=== PATIENT | female | born 1970 | race Caucasian/White ===

== ENCOUNTER 2020-03-07 13:57 | Outpatient (CLI) | payer OTHER, SELFPAY ==
--- NOTE | 2020-03-07 14:02 | CT_ITS ---
WS: [id number] CT CHEST WITH INTRAVENOUS CONTRAST HISTORY: MULTIPLE NODULES OF LUNG TECHNIQUE: Contiguous 5 mm axial imaging performed on the thorax. Coronal and sagittal reformats are submitted. All CT scans at [facility] use at least one of these dose optimization techniq ues: automated exposure control; mA and/or kV adjustment per patient size (includes targeted exams wh ere dose is matched to clinical indication); or iterative reconstruction. CONTRAST: Omnipaque 300; 95 mL IV. DLP: 925.89 mGy.cm COMPARISON: 02/27/2019, 07/08/2017 Lungs and central airway: Lungs are well-aerated. 9 mm noncalcified nodule is unchanged over several years at the RIGHT lung base. There are additional micronodules and nodules measuring up to 5 mm thro ughout both lungs. No new or enlarging nodule since at least 07/08/2017. No pneumonia. Pleura: Normal. No pleural effusion. Heart and pericardium: Normal size heart. No pericardial effusion. Scattered calcifications in the na tive coronary arteries. Mediastinum and lien: No mediastinum or hilar adenopathy. Vessels: Normal size aortic and pulmonary artery. No coronary artery calcifications. Chest wall and lower neck: No soft tissue masses. Upper abdomen: Negative. Osseous structures: Mild thoracic spondylosis. CT/CT chest w con* [id number] IMPRESSION: 1. Long-term stability of subcentimeter bilateral pulmonary nodules. No change since 07/08/2017. No additional follow-up necessary. 2. Mild coronary artery atherosclerosis.
[2020-03-07] MEDS: iohexol 300 mg/mL 100 mL Btl IV (14:40)
== END 2020-03-07 13:58 | disposition home or self-care (01) ==
PROVIDERS: PCP Internal Medicine; Visit Provider Internal Medicine
DX: R91.8 Other nonspecific abnormal finding of lung field (principal); I25.10 Atherosclerotic heart disease of native coronary artery without angina pectoris
CPT/HCPCS: 71260

== ENCOUNTER 2020-03-18 14:56 | Outpatient (CLI) | payer OTHER, SELFPAY ==
--- NOTE | 2020-03-18 15:03 | MM_ITS ---
WS: [id number] BILATERAL DIGITAL SCREENING MAMMOGRAPHY WITH CAD CLINICAL INFORMATION: SCREENING HISTORY: Screening mammogram. No current complaints. COMPARISON: October 02, 2018 TECHNIQUE: Bilateral CC and MLO views. FINDINGS: Scattered fibroglandular densities bilaterally. No suspicious focal mass, asymmetry, calcifications, or architectural distortion. No evidence of malignancy. Lucent centered and secretory calcifications. MM/[id number] IMPRESSION: BI-RADS: 2-Benign FOLLOW UP: 1 Year Follow-up Recommend return to annual screening mammography.
== END 2020-03-18 14:57 | disposition home or self-care (01) ==
PROVIDERS: PCP Internal Medicine; Visit Provider Internal Medicine
DX: Z12.31 Encounter for screening mammogram for malignant neoplasm of breast (principal)
CPT/HCPCS: 77067

== ENCOUNTER 2021-05-17 09:20 | Outpatient (CLI) | payer OTHER, SELFPAY ==
--- NOTE | 2021-05-17 09:25 | MM_ITS ---
WS: [id number] BILATERAL 3D TOMOSYNTHESIS DIGITAL SCREENING MAMMOGRAPHY WITH CAD CLINICAL INFORMATION: SCREENING HISTORY: Screening mammogram. No current complaints. COMPARISON: March 18, 2020 TECHNIQUE: Bilateral CC and MLO views. FINDINGS: Scattered fibroglandular densities bilaterally. Punctate and lucent centered calcifications. Secretor y calcifications. Stable asymmetric density upper outer RIGHT breast. No suspicious focal mass, asymm etry, calcifications, or architectural distortion. No evidence of malignancy. MM/[place] [id number] IMPRESSION: BI-RADS: 2-Benign FOLLOW UP: 1 Year Follow-up Recommend return to annual screening mammography.
== END 2021-05-17 09:21 | disposition home or self-care (01) ==
LOC: RADSHAW 09:24
PROVIDERS: PCP Family Medicine; Visit Provider Family Medicine
DX: Z12.31 Encounter for screening mammogram for malignant neoplasm of breast (principal)
CPT/HCPCS: 77063; 77067

== ENCOUNTER 2022-10-05 11:07 | Outpatient (CLI) | payer OTHER, SELFPAY ==
--- NOTE | 2022-10-05 11:15 | MM_ITS ---
WS: [id number] Bilateral screening 3D tomosynthesis digital mammogram, 10/05/2022 Clinical Data: SCREENING Comparison: 10/17/2021, 03/18/2020, 10/02/2018, 08/09/2017, 06/01/2016, 10/15/2005. Findings: The breast parenchymal pattern shows fibroglandular tissue. No spiculated masses or clustered calcifi cations are seen. There are no secondary signs of carcinoma. Scattered ductal calcifications are pres ent in both breasts. There are lymph nodes in both axilla. MM/[place] [id number] Impression: 1. Negative bilateral mammogram unchanged. 2. Recommend annual screening mammograms. BIRADS: 1-Negative FOLLOW UP: 1 Year Follow-up The CAD return checker was used.
[2022-10-05 12:07] LABS: Basophils # 0.1 10^3/uL (0.0-0.1); Eosinophils # 0.4 10^3/uL (0.0-0.8); Eosinophils % 5.9 %; Hematocrit 32.6 % (37.0-47.0); Hemoglobin 10.9 g/dL (11.5-15.3); Lymphocytes # 2.1 10^3/uL (0.8-4.8); Lymphocytes % 29.2 %; Mean Corpuscular HGB Conc 33.4 g/dL (30.0-36.0); Mean Corpuscular Hemoglobin 30.7 pg (28.0-34.0); Mean Corpuscular Volume 91.8 fl (81-99); Mean Platelet Volume 9.3 fL (7.4-10.4); Monocytes # 0.5 10^3/uL (0.2-0.9); Monocytes % 7.2 %; Neutrophils # 3.97 10^3/uL (1.8-7.7); Neutrophils % 56.3 %; Nucleated Red Blood Cells % 0 %; Platelet Count 324 10^3/cmm (130-400); Red Blood Count 3.55 10^6/uL (4.1-5.3); Red Cell Distribution Width 13.2 % (12.1-15.1); White Blood Count 7.1 10^3/uL (4.0-10.0)
[2022-10-05 12:34] LABS: Alanine Aminotransferase 18 U/L (0-33); Albumin Level 4.3 g/dL (3.5-5.2); Alkaline Phosphatase 81 U/L (35-105); Aspartate Amino Transferase 14 U/L (0-32); C Reactive Protein 6.8 mg/L (0.0-4.9); Globulin 2.9 g/dL (1.3-4.6); Glomerular Filtration Rate 74.7 mL/min (90-130); Total Bilirubin 0.3 mg/dL (0.15-1.2); Total Protein 7.2 g/dL (6.6-8.7)
== END 2022-10-05 11:08 | disposition home or self-care (01) ==
LOC: RAD 11:11 → MOBLMAM 11:15
PROVIDERS: Internal Medicine Rheumatology; PCP Family Medicine; Visit Provider Family Medicine
DX: Z12.31 Encounter for screening mammogram for malignant neoplasm of breast (principal); R76.8 Other specified abnormal immunological findings in serum; Z79.899 Other long term (current) drug therapy
CPT/HCPCS: 77063; 77067; 80076; 82565; 85025; 86140

== ENCOUNTER → 2022-10-17 14:54 | Outpatient (BNVA) | payer OTHER, SELFPAY | PROVIDERS: PCP Family Medicine; Visit Provider Internal Medicine Rheumatology | DX: R76.8 Other specified abnormal immunological findings in serum (principal); M25.50 Pain in unspecified joint; Z79.899 Other long term (current) drug therapy; Z71.85 Encounter for immunization safety counseling; L40.0 Psoriasis vulgaris | CPT/HCPCS: 99214 ==

== ENCOUNTER → 2022-11-26 08:19 | Outpatient (BNVA) | payer OTHER, SELFPAY | PROVIDERS: PCP Family Medicine; Visit Provider Internal Medicine | DX: E03.9 Hypothyroidism, unspecified; E11.40 Type 2 diabetes mellitus with diabetic neuropathy, unspecified; Z79.890 Hormone replacement therapy; Z79.84 Long term (current) use of oral hypoglycemic drugs | CPT/HCPCS: 99204 ==

== ENCOUNTER 2022-12-10 06:21 | Outpatient (CLI) | payer OTHER, SELFPAY ==
[2022-12-10 07:08] LABS: Estmated Average Glucose 252; Hemoglobin A1C 10.4 % (4.0-6.0)
[2022-12-10 07:17] LABS: Creatinine Urine, Random 124 mg/dL (28-217); Microalbum Creatinine Ratio Ur 40 mg/dL (0-20); Microalbumin Random Urine 5 ug/dL (0-20)
[2022-12-10 07:24] LABS: Alanine Aminotransferase 13 U/L (0-33); Albumin Level 4.4 g/dL (3.5-5.2); Alkaline Phosphatase 90 U/L (35-105); Anion Gap 14.4 (5-19); Aspartate Amino Transferase 14 U/L (0-32); Blood Urea Nitrogen 16 mg/dL (6-20); Calcium 9.6 mg/dL (8.5-10.5); Carbon Dioxide 27 mmol/L (22-29); Chloride 96 mmol/L (98-107); Chol HDL Ratio 3.66 mg/dL (0.0-4.40); Cholesterol 139 mg/dL (0-200); Free T4 Free Thyroxine 1.34 ng/dL (0.82-1.77); Globulin 3.5 g/dL (1.3-4.6); Glomerular Filtration Rate 51.8 mL/min (90-130); Glucose 254 mg/dL (65-115); HDL Cholesterol 38 mg/dL (60-100); LDL Cholesterol Calculated 50 mg/dL (50-129); LDL HDL Ratio 1.32 RATIO (0.00-3.22); Osmolality Calculated 286 mOsm/kg (285-295); Potassium 4.4 mmol/L (3.5-5.1); Sodium 133 mmol/L (136-145); Thyroid Stimulating Hormone 4.34 uIU/mL (0.27-4.20); Total Bilirubin 0.3 mg/dL (0.15-1.2); Total Protein 7.9 g/dL (6.6-8.7); Triglycerides 255 mg/dL (0-150)
[2022-12-11 07:20] LABS: T3 Total 141 ng/dL (76-181)
== END 2022-12-10 06:22 | disposition home or self-care (01) ==
LOC: LAB 06:22
PROVIDERS: PCP Family Medicine; Visit Provider Internal Medicine
DX: E11.9 Type 2 diabetes mellitus without complications (principal); E03.9 Hypothyroidism, unspecified
CPT/HCPCS: 36415; 80053; 80061; 82044; 83036; 84439; 84443; 84480

== ENCOUNTER → 2023-03-19 08:40 | Outpatient (BNVA) | payer OTHER, SELFPAY | PROVIDERS: PCP Family Medicine; Visit Provider Internal Medicine | DX: E03.9 Hypothyroidism, unspecified (principal); E11.9 Type 2 diabetes mellitus without complications; E78.2 Mixed hyperlipidemia; Z79.84 Long term (current) use of oral hypoglycemic drugs; Z79.890 Hormone replacement therapy | CPT/HCPCS: 99214 ==

== ENCOUNTER 2023-03-27 15:51 | Outpatient (CLI) | payer OTHER, SELFPAY ==
[2023-03-27 17:01] LABS: Free T4 Free Thyroxine 2.23 ng/dL (0.82-1.77); Thyroid Stimulating Hormone 0.14 uIU/mL (0.27-4.20)
== END 2023-03-27 15:52 | disposition home or self-care (01) ==
LOC: LAB 15:54
PROVIDERS: PCP Family Medicine; Visit Provider Internal Medicine
DX: E03.9 Hypothyroidism, unspecified (principal)
CPT/HCPCS: 84439; 84443

== ENCOUNTER → 2023-05-21 09:24 | Outpatient (BNVA) | payer OTHER, SELFPAY | PROVIDERS: PCP Family Medicine; Visit Provider Internal Medicine Rheumatology | DX: Z79.899 Other long term (current) drug therapy (principal); M25.50 Pain in unspecified joint; R76.8 Other specified abnormal immunological findings in serum; Z71.85 Encounter for immunization safety counseling; L40.0 Psoriasis vulgaris | CPT/HCPCS: 36415; 85025; 99214 ==

== ENCOUNTER 2023-06-10 15:09 | Outpatient (CLI) | payer OTHER, SELFPAY ==
[2023-06-10 15:57] LABS: Creatinine Urine, Random 56 mg/dL (28-217); Microalbum Creatinine Ratio Ur 36 mg/dL (0-20); Microalbumin Random Urine 2 ug/dL (0-20)
[2023-06-10 16:05] LABS: Estmated Average Glucose 134; Hemoglobin A1C 6.3 % (4.0-6.0)
[2023-06-10 16:07] LABS: Alanine Aminotransferase 17 U/L (0-33); Albumin Level 4.2 g/dL (3.5-5.2); Alkaline Phosphatase 94 U/L (35-105); Aspartate Amino Transferase 26 U/L (0-32); Blood Urea Nitrogen 14 mg/dL (6-20); Calcium 9.5 mg/dL (8.5-10.5); Carbon Dioxide 27 mmol/L (22-29); Chloride 102 mmol/L (98-107); Chol HDL Ratio 2.76 mg/dL (0.0-4.40); Cholesterol 127 mg/dL (0-200); Free T4 Free Thyroxine 1.51 ng/dL (0.82-1.77); Globulin 3.7 g/dL (1.3-4.6); Glucose 143 mg/dL (65-115); HDL Cholesterol 46 mg/dL (60-100); LDL Cholesterol Calculated 61 mg/dL (50-129); LDL HDL Ratio 1.33 RATIO (0.00-3.22); Osmolality Calculated 287 mOsm/kg (285-295); Sodium 137 mmol/L (136-145); Total Bilirubin 0.3 mg/dL (0.15-1.2); Total Protein 7.9 g/dL (6.6-8.7); Triglycerides 102 mg/dL (0-150)
[2023-06-10 16:10] LABS: Anion Gap 12.6 (5-19); Potassium 4.6 mmol/L (3.5-5.1)
== END 2023-06-10 15:10 | disposition home or self-care (01) ==
LOC: LAB 15:11
PROVIDERS: PCP Family Medicine; Visit Provider Internal Medicine
DX: E03.9 Hypothyroidism, unspecified (principal); E11.9 Type 2 diabetes mellitus without complications
CPT/HCPCS: 36415; 80053; 80061; 82044; 83036; 84439; 84443

== ENCOUNTER → 2023-06-18 08:53 | Outpatient (BNVA) | payer OTHER, SELFPAY | PROVIDERS: PCP Family Medicine; Visit Provider Internal Medicine | DX: E03.9 Hypothyroidism, unspecified (principal); E11.9 Type 2 diabetes mellitus without complications; E78.2 Mixed hyperlipidemia; Z79.85 Long-term (current) use of injectable non-insulin antidiabetic drugs; Z79.890 Hormone replacement therapy | CPT/HCPCS: 99214 ==

== ENCOUNTER 2023-10-11 07:39 | Outpatient (CLI) | payer OTHER, SELFPAY ==
--- NOTE | 2023-10-11 07:41 | MM_ITS ---
WS: [id number] BILATERAL SCREENING DIGITAL TOMOSYNTHESIS MAMMOGRAM WITH CAD HISTORY: SCREENING COMPARISON: 10/05/2022, 05/17/2021, 10/02/2018 Bilateral CC and MLO views with tomosynthesis and synthetic mammography submitted. Computer aided det ection analyzed. Breast composition: There are scattered areas of fibroglandular density. No suspicious masses, microc alcifications or architectural distortion. Numerous benign calcifications within each breast. Calcifi cations are rodlike and round. MM/[place] [id number] IMPRESSION: BI-RADS: 2-Benign FOLLOW UP: 1 Year Follow-up
== END 2023-10-11 07:40 | disposition home or self-care (01) ==
PROVIDERS: PCP Family Medicine; Visit Provider Family Medicine
DX: Z12.31 Encounter for screening mammogram for malignant neoplasm of breast (principal)
CPT/HCPCS: 77063; 77067

== ENCOUNTER → 2023-12-10 09:38 | Outpatient (BNVA) | payer OTHER, SELFPAY | PROVIDERS: PCP Family Medicine; Visit Provider Internal Medicine | DX: Z79.899 Other long term (current) drug therapy (principal); M25.50 Pain in unspecified joint; E03.9 Hypothyroidism, unspecified; E11.9 Type 2 diabetes mellitus without complications | CPT/HCPCS: 36415; 80053; 80061; 80076; 82044; 82565; 83036; 84439; 84443; 85025; 85651; 86140 ==

== ENCOUNTER → 2024-04-07 09:58 | Outpatient (BNVA) | payer OTHER, SELFPAY | PROVIDERS: PCP Family Medicine; Visit Provider Internal Medicine Rheumatology | DX: Z79.899 Other long term (current) drug therapy (principal); M25.50 Pain in unspecified joint; L40.0 Psoriasis vulgaris; R76.8 Other specified abnormal immunological findings in serum; Z71.85 Encounter for immunization safety counseling | CPT/HCPCS: 36415; 80076; 82565; 85025; 85651; 86140 ==

== ENCOUNTER 2024-06-30 16:19 | Outpatient (CLI) | payer OTHER, SELFPAY ==
[2024-06-30 17:18] LABS: Estmated Average Glucose 100; Hemoglobin A1C 5.1 % (4.0-6.0)
[2024-06-30 18:18] LABS: Creatinine Urine, Random 42 mg/dL (28-217); Microalbumin Random Urine 5 ug/dL (0-20)
[2024-06-30 18:20] LABS: Microalbum Creatinine Ratio Ur 119 mg/dL (0-20)
[2024-06-30 18:27] LABS: Alanine Aminotransferase 24 U/L (0-33); Albumin Level 4.2 g/dL (3.5-5.2); Alkaline Phosphatase 92 U/L (35-105); Anion Gap 16.9 (5-19); Aspartate Amino Transferase 29 U/L (0-32); Blood Urea Nitrogen 11 mg/dL (6-20); Calcium 9.6 mg/dL (8.5-10.5); Carbon Dioxide 26 mmol/L (22-29); Chloride 100 mmol/L (98-107); Chol HDL Ratio 2.23 mg/dL (0.0-4.40); Cholesterol 134 mg/dL (0-200); Globulin 3.5 g/dL (1.3-4.6); Glomerular Filtration Rate 64.8 mL/min (90-130); Glucose 68 mg/dL (65-115); HDL Cholesterol 60 mg/dL (60-100); LDL Cholesterol Calculated 65 mg/dL (50-129); LDL HDL Ratio 1.08 RATIO (0.00-3.22); Osmolality Calculated 284 mOsm/kg (285-295); Potassium 4.9 mmol/L (3.5-5.1); Sodium 138 mmol/L (136-145); Thyroid Stimulating Hormone 3.34 uIU/mL (0.27-4.20); Total Bilirubin 0.3 mg/dL (0.15-1.2); Total Protein 7.7 g/dL (6.6-8.7); Triglycerides 46 mg/dL (0-150)
[2024-06-30 20:36] LABS: Free T4 Free Thyroxine 1.54 ng/dL (0.82-1.77)
== END 2024-06-30 16:20 | disposition home or self-care (01) ==
LOC: LAB 16:28
PROVIDERS: PCP Family Medicine; Visit Provider Internal Medicine
DX: E03.9 Hypothyroidism, unspecified (principal); E11.9 Type 2 diabetes mellitus without complications
CPT/HCPCS: 36415; 80053; 80061; 82044; 83036; 84439; 84443

== ENCOUNTER → 2024-07-03 10:18 | Outpatient (BNVA) | payer OTHER, SELFPAY | PROVIDERS: PCP Family Medicine; Visit Provider Internal Medicine | DX: E03.9 Hypothyroidism, unspecified (principal); E11.9 Type 2 diabetes mellitus without complications; E78.2 Mixed hyperlipidemia; R03.0 Elevated blood-pressure reading, without diagnosis of hypertension; L65.9 Nonscarring hair loss, unspecified; L40.0 Psoriasis vulgaris; Z79.899 Other long term (current) drug therapy | CPT/HCPCS: 82626; 82627; 84403 ==

== ENCOUNTER → 2024-09-23 08:52 | Outpatient (BNVA) | payer OTHER, SELFPAY | PROVIDERS: PCP Family Medicine; Visit Provider Podiatrist Foot & Ankle Surgery | DX: E11.42 Type 2 diabetes mellitus with diabetic polyneuropathy (principal); L60.3 Nail dystrophy; B35.1 Tinea unguium | CPT/HCPCS: 36415; 80053 ==

== ENCOUNTER → 2024-10-04 14:30 | Outpatient (BNVA) | payer OTHER, SELFPAY | PROVIDERS: PCP Family Medicine; Visit Provider Emergency Medicine | DX: S90.851A Superficial foreign body, right foot, initial encounter (principal); W25.XXXA Contact with sharp glass, initial encounter | CPT/HCPCS: 73630 ==

== ENCOUNTER → 2024-10-06 10:15 | Outpatient (BNVA) | payer OTHER, SELFPAY | PROVIDERS: PCP Family Medicine; Visit Provider Internal Medicine Rheumatology | DX: Z79.899 Other long term (current) drug therapy (principal) | CPT/HCPCS: 36415; 80076; 82565; 85025; 85651; 86140 ==

== ENCOUNTER 2024-10-26 08:30 | Oncology outpatient (recurring) (ONCR) | payer OTHER, SELFPAY ==
[2024-10-19 15:55] LABS: Hematocrit 29.1 % (36-47); Hemoglobin 9.50 g/dL (11.27-16.99); Mean Corpuscular HGB Conc 32.6 g/dL (30-55); Mean Corpuscular Hemoglobin 33.1 pg (27-33); Mean Corpuscular Volume 101.4 fl (85-98); Nucleated Red Blood Cells % 0 %; Platelet Count 500 10^3/cmm (157-399); Red Blood Count 2.87 10^6/uL (3.85-5.65); White Blood Count 10.29 10^3/uL (3.29-11.43)
--- NOTE | 2024-10-20 16:41 | PC.NURSE ---
patient presented to the infusion suite for a blood draw. It was noted the patient's right arm was swollen with a reddened hard area where an IV a previously been when hospitalized at [facility]. Patient states that the IV was used for a chemical stress test the day she was discharged and the site has been red, swollen, hot to the touch since then. Patient states she believes it is slowly starting to show signs of improvement. Patient was advised to reach out to her primary care physician with concerns as well as trying warm/cool compresses at home.
[2024-10-20 17:51] LABS: Alanine Aminotransferase 48 U/L (0-33); Albumin Level 3.2 g/dL (3.5-5.2); Alkaline Phosphatase 123 U/L (35-105); Aspartate Amino Transferase 37 U/L (0-32); Globulin 3.7 g/dL (1.3-4.6); Total Protein 6.9 g/dL (6.6-8.7)
[2024-10-26 09:03] LABS: Hematocrit 31.6 % (36-47); Hemoglobin 10.00 g/dL (11.27-16.99); Mean Corpuscular HGB Conc 31.6 g/dL (30-55); Mean Corpuscular Hemoglobin 32.4 pg (27-33); Mean Corpuscular Volume 102.3 fl (85-98); Nucleated Red Blood Cells % 0 %; Platelet Count 423 10^3/cmm (157-399); Red Blood Count 3.09 10^6/uL (3.85-5.65); White Blood Count 6.89 10^3/uL (3.29-11.43)
[2024-10-26 09:26] LABS: Albumin Level 3.4 g/dL (3.5-5.2); Alkaline Phosphatase 97 U/L (35-105); Globulin 3.8 g/dL (1.3-4.6); Total Protein 7.2 g/dL (6.6-8.7)
[2024-10-26 10:52] LABS: Alanine Aminotransferase 27 U/L (0-33); Aspartate Amino Transferase 40 U/L (0-32)
== END 2024-11-01 23:59 | disposition home or self-care (01) ==
PROVIDERS: Family Medicine; Student in an Organized Health Care Education/Training Program; PCP Family Medicine; Visit Provider Internal Medicine Medical Oncology
DX: L03.90 Cellulitis, unspecified (principal); Z53.9 Procedure and treatment not carried out, unspecified reason
CPT/HCPCS: 36415; 36592; 80076; 82565; 85025; 86140

== ENCOUNTER 2024-11-04 08:18 | Oncology outpatient (recurring) (ONCR) | payer OTHER, SELFPAY | END 2024-12-01 23:59 | disposition home or self-care (01) | PROVIDERS: PCP Family Medicine; Visit Provider Internal Medicine Medical Oncology | DX: Z53.9 Procedure and treatment not carried out, unspecified reason (principal) ==

== ENCOUNTER 2024-11-08 06:14 | Emergency (ER) | payer OTHER, SELFPAY ==
--- OUTSIDE RECORDS SUMMARY | 2024-11-08 06:17 | XMS_ITS | Clinical Summary ---
Author Organization [facility] Address [address] [place] [address] Phone Care Team Providers Care Project Archivist Name Role Phone Unavailable Primary Care Provider Unavailabl e Social History Tobacco Use Types Packs/Day Years Used Date Smoking Tobacco: Never Assessed Comments Unknown Sex and Gender Information Value Date Recorded Sex Assigned at Not on file Legal Sex Female 11:25 AM CDT Gender Identity Not on file Sexual Orientation Not on file Plan of Treatment Health Maintenance Due Date Last Done Comments DTAP/TDAP/TD VACCINES (1 - Tdap) 05/16/1987 HEPATITIS B VACCINES (1 of 3 - 19+ 3-dose series) 05/02 HPV/Cotest (21-29) 1989 CERVICAL CANCER SCREENING 1998 HPV/Cotest (30-65) 1998 PAP SMEAR 1998 BREAST CANCER SCREENING 2008 COLORECTAL SCREENING 2013 Colorectal Cancer Screening 2013 FIT-DNA Q 3 years 2013 FIT/FOBT Q 1 year 2013 Flex Sig/CT Colonography Q 5 years 2013 ZOSTER VACCINE (1 of 2) 2018 INFLUENZA VACCINE (#1) 2024 Insurance [facility]
--- OUTSIDE RECORDS SUMMARY | 2024-11-08 06:18 | XMS_ITS | Patient Health Record ---
Author Organization [facility] Address [address] [place] [address] Care Team Providers Care Space Operations Officer Name Role Phone Frederick Ocasio Unavailable [phone] Charlie Flores Unavailable [phone] Allergies Allergen (clinical drug ingredient) Drug/Non Drug Allergy documented on EMR Reaction Allergy Type Onset Date Status Alpha-Gal Unknown Drug Allergy Active codeine Codeine nausea and vomiting Drug Allergy Active Reason For Referral Reason eval and treat Diagnosis 1 Pain in left foot (M 79.672) Diagnosis 2 Pain in right foot ( M79.671) Referring Provider First Name Domo Referring Provider Last Name Marija Referring Provider Speciality Pain Medic ine Referred Organization [facility] Referred Provider Charlie Flores Referred Address [address], [place],[address], Referred Provider Specialty Intervention al Pain Medicine General Notes Maranda Miller 09:44:57 AM >Called and left mess to return call to schedule Issac perales Melody 08/10/2024 10:30:48 AM >Mailed nppw Referral Priority Routine Medications Medication SIG (Take, Route, Frequency, Duration) Notes Start Date End Date Status traMADol HCl 100 MG Tablet 1 tablet as n eeded Orally every 8 hrs Active Gabapentin 600 MG Tablet 1 tablet Orally Once a day Active Crestor 40 MG Tablet 1 tablet Orally Onc e a day Active Levothyroxine Sodium 112 MCG Tablet 1 tablet in the morning on an empty stomach Orally Once a day Active Hydroxychloroquine Sulfate 2 00 MG Tablet as directed Orally Active ZyrTEC 10 MG Tablet Chewable 1 tablet Or ally Once a day Active Pepcid 20 MG Tablet 1 tablet at bedtime as needed Orally Once a day Active Aspirin 81 81 MG Tablet Delayed Release 1 tablet Orally Once a day Active Social History Tobacco Use: Social History Observation Description Date Details (start date - stop date) Never Smoker NA - NA Social History Tobacco Use: Social Info Question Answer Notes Tobacco Control (Standard) Tobacco use: Nonsmoker Additional Details Category Social Info Options Details Miscellaneous: Sexually active: yes 1x month Sexual abuse: no Drugs/Alcohol: Do you smoke marijuana? De nies Do you drink alcohol? No Problems Problem Type SNOMED Code ICD Code Onset Dates Problem Status W/U Status Risk Notes Problem Chronic pain syndrome (712610064) Chronic pain syndrome (G89.4) Active confirmed Problem Peripheral vascular disease (841661019) PVD (peripheral vascular disease) (I73.9) Active confirmed Problem Diabetic peripheral neuropathy (981191537) Diabetic peripheral neuropathy (E11.42) Active confirmed Problem Abnormal gait (16625007) Abnormality of gait and mobility (R26.9) Active confirmed Problem Chronic critical ischemia of extremity (I70.229) Active confirmed Vital Signs Weight-kg 71.67 kg 10/21/2024 Weight 158 lbs 10/21/2024 Encounters Encounter Location Date Provider Diagnosis Formerly [facility], [facility] Interventional Pain Management [address] [address] 10/21/2024 Charlie Flores Chronic pain syndrome G89.4 ; Diabetic peripheral neuropathy E11.42 ; Abnormality of gait and mobility R26.9 and 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 Based on her history and physical examination, the worst of her symptoms appears most consistent with diabetic peripheral neuropathy.We discussed her current use of tramadol, and I advised that the maximum dosage is four tablets per day. She is going to work on reducing her intake accordingly. She reports that she currently has an adequate supply but wanted to establish care. We also discussed SCS as a potential treatment option. She met with a sales 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 leather goods from [employer] earlier today, and we will continue this discussion at future visits. We plan to see her back in a couple of months and proceed accordingly. 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 Charlie Flores. I, Dr. Charlie Flores, personally performed the services described in this documentation, as scribed by Chelsea Mei, and it is both accurate and complete. Plan Of Treatment Next Appt Details Provider Name:Frederick Ocasio , 11/11/2024 10:15:00 AM, [address] [place] [address] [address], [place], [address], Insurance Providers Payer Name Payer Address Payer Phone Subscriber Number Group Number Insured Name Patient Relationship to Insured Coverage Start Date Coverage End Date [employer] [address] [place] [phone] [id number] Fatoumata Souza Self - patient is the insured [employer] [address] [place] [phone] [id number] Fatoumata Souza Self - patient is the insured Medical (General) History Medical History History ICD Code High Blood Pressure Diabetes constipation Thyroid disease Surgical History Surgery Date(Month/Year) carpal tunnel release section hysterectomy
[2024-11-08 06:21] VITALS: BP 178/83; PULSE 79; RESP 18; TEMP 36.6; O2SAT 99; BMI 26.6
--- NOTE | 2024-11-08 06:30 | W.ED.WOUNDLC ---
HPI - Wound/Laceration General: Chief Complaint: Wound/Laceration Stated Complaint: gamino wound post toe amputation Time Seen by Provider: 11/08/24 06:17 Source: patient Mode of arrival: ambulatory Limitations: no limitations History of Present Illness: 54-year-old female who have a history of wound to right foot. She had a fourth toe amputation on that foot along with wound care. She just recently finished antibiotics to see animal control officer Dr. Vega states that last night she had noticed some change to the wound stated appeared greater in nature some slight erythema she denies any pain denies any fever denies any drainage or odor Associated symptoms: Denies chills, fever(s), nausea or vomiting Related Data Home Medications ?Medication ?Instructions ?Recorded ?Confirmed aspirin 81 mg tablet,delayed 81 mg PO DAILY 04/23/22 11/04/24 release (Adult Low Dose Aspirin) gabapentin 600 mg tablet 600 mg PO TID 04/23/22 11/04/24 tramadol 100 mg tablet 100 mg PO TID 04/23/22 11/04/24 cetirizine 10 mg tablet (Zyrtec) 10 mg PO DAILY PRN allergies 05/03/22 11/04/24 famotidine 20 mg tablet (Pepcid) 20 mg PO BID 05/03/22 11/04/24 rosuvastatin 40 mg tablet (Crestor) 40 mg PO QPM 05/03/22 11/04/24 epinephrine 0.3 mg/0.3 mL See Rx Instructions .Route .COMPLEX 10/08/24 11/04/24 injection, auto-injector Previous Rx's ?Medication ?Instructions ?Recorded prednisone 10 mg tablet See Rx Instructions PO .COMPLEX 05/21/23 PRN joint pain #30 tabs levothyroxine 112 mcg tablet See Rx Instructions .Route 05/27/24 .COMPLEX #30 tabs tirzepatide 15 mg/0.5 mL See Rx Instructions .Route 09/14/24 subcutaneous pen injector .COMPLEX #2 mL (Mounjaro) terbinafine HCl 250 mg tablet 250 mg PO DAILY 30 days #30 tabs 09/24/24 mupirocin 2 % topical ointment 1 applic topical BID #22 grams 10/04/24 (Centany) hydroxychloroquine 200 mg tablet 200 mg PO BID #180 tabs 10/06/24 Held on 10/14/24. Instructions: Resume on 11/16/24. hold until yousee ciprofloxacin HCl 500 mg tablet 500 mg PO BID #14 tabs 11/08/24 (Cipro) Allergies Allergy/AdvReac Type Severity Reaction Status Date / Time Alpha-Gal Allergy Severe ALGY-Anaphy Verified 11/08/24 06:26 (Lemovzktm-Wriss-9,3-Gala laxis Review of Systems Const: Denies: fever(s), chills, body aches or change in appetite ENMT: Denies: throat pain or dental pain Card: Denies: chest pain Resp: Denies: dyspnea GI: Denies: abdominal pain, nausea, vomiting or diarrhea Musc: Denies: neck pain or back pain Skin/Breast: Denies: rash Neuro: Denies: headache(s) PFSH ED PFSH: Medical History (Updated 11/08/24 @ 07:09 by Juan Rm MD) 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 Immunization counseling High risk medication use Polyarthralgia Positive DANILO (antinuclear antibody) 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 Diabetes Thyroid disease Joint pain Hypertension Neuropathy Carpal tunnel syndrome on both sides Surgical History History of hysterectomy History of delivery Family History Other Cancer Diabetes Hypertension Denies family history of Rheumatoid arthritis Lupus CAD (coronary artery disease) Hyperlipidemia Chronic kidney disease (CKD) Family history of premature coronary artery disease Lung disease Stroke Social History Smoking and tobacco/nicotine status: never used tobacco/nicotine Alcohol intake: never Substance/Drug Use: never Physical Exam Const: COMMON NORMALS: no acute distress, patient oriented x3 and healthy appearing HENMT: COMMON NORMALS: normocephalic and atraumatic HEAD & SCALP: normocephalic and atraumatic Neck/C-Spine: COMMON NORMALS: full ROM and supple Chest: COMMONS NORMALS: normal inspection of the chest Resp: COMMON NORMALS: normal respiratory effort Cardio: COMMON NORMALS: regular rate RATE: regular rate Extremity: OTHER: Neuro: COMMON NORMALS: patient oriented x3, moves all extremities and no focal motor deficits Psych: COMMON NORMALS: mental status grossly normal, Normal thought process present and cooperative THOUGHT PROCESS: Normal thought process present Skin: COMMON NORMALS: no rashes or lesions noted GENERAL SKIN EXAM: no rashes or lesions noted Course Vital Signs: Vital signs: Vital Signs Temperature 97.8 F 11/08/24 06:21 Pulse Rate 74 11/08/24 06:31 Respiratory Rate 16 11/08/24 06:31 Blood Pressure 165/95 11/08/24 06:31 Pulse Oximetry 99 11/08/24 06:31 Oxygen Delivery Me thod Room Air 11/08/24 06:21 MDM - Wound/Laceration Medical Decision Making Patient presents here with wound to her foot I did speak to Dr. Mima spence count here is normal no signs of any severe infection or osteomyelitis will start on she sees him on Saturday she is to follow-up as scheduled return if worsening. Medical Records I reviewed the patient's medical records. Lab Data I reviewed the patient's lab results. 11/08/24 06:40 11/08/24 06:40 Radiology Impressions Foot X-Ray 11/08/24 06:33 IMPRESSION: 1. Interval resection of right 4th toe at the level of the distal metatarsal metaphysis demonstrating relatively sharply demarcated bony amputation stump and open wound without abundant subcutaneous emphysema between the 3rd and 5th toes. Otherwise no specific radiographic manifestations of postprocedural osteomyelitis. 2. No acute displaced fracture. COMMENTS: If high clinical index of suspicion for osteomyelitis is persistent, consider either nuclear medicine white blood cell scan or PET-CT, alternatively MRI forefoot without contrast may be useful in this setting. Laboratory Results WBC 6.62 10^3/uL (3.29-11.43) 11/08/24 06:40 RBC 4.00 10^6/uL (3.85-5.65) 11/08/24 06:40 Hgb 13.20 g/dL (11.27-16.99) 11/08/24 06:40 Hct 41.3 % (36-47) 11/08/24 06:40 MCV 103.3 fl (85-98) H 11/08/24 06:40 MCH 33.0 pg (27-33) 11/08/24 06:40 MCHC 32.0 g/dL (30-55) 11/08/24 06:40 RDW 14.6 % (12.1-15.1) 11/08/24 06:40 Plt Count 198 10^3/cmm (157-399) 11/08/24 06:40 MPV 10.5 fL (7.4-10.4) H 11/08/24 06:40 Neut % (Auto) 58.2 % 11/08/24 06:40 Lymph % (Auto) 25.1 % 11/08/24 06:40 [place] % (Auto) 7.7 % 11/08/24 06:40 Eos % (Auto) 7.3 % 11/08/24 06:40 Baso % (Auto) 1.4 % 11/08/24 06:40 Neut # (Auto) 3.86 10^3/uL (1.8-7.7) 11/08/24 06:40 Lymph # (Auto) 1.7 10^3/uL (0.8-4.8) 11/08/24 06:40 [place] # (Auto) 0.5 10^3/uL (0.2-0.9) 11/08/24 06:40 Eos # (Auto) 0.5 10^3/uL (0.0-0.8) 11/08/24 06:40 Baso # (Auto) 0.1 10^3/uL (0.0-0.1) 11/08/24 06:40 Nucleated RBC % (auto) 0 % 11/08/24 06:40 Nucleated RBCs # 0.0 /100WBC 11/08/24 06:40 ESR 37 mm/hr (0-15) H 11/08/24 06:40 Sodium 136 mmol/L (136-145) 11/08/24 06:40 Chloride 98 mmol/L (98-107) 11/08/24 06:40 Carbon Dioxide 26 mmol/L (22-29) 11/08/24 06:40 BUN 9 mg/dL (6-20) 11/08/24 06:40 Creatinine 0.7 mg/dL (0.5-0.9) 11/08/24 06:40 Glucose 114 mg/dL (65-115) 11/08/24 06:40 Calcium 9.7 mg/dL (8.5-10.5) 11/08/24 06:40 Total Bilirubin 0.3 mg/dL (0.15-1.2) 11/08/24 06:40 AST 28 U/L (0-32) 11/08/24 06:40 ALT 22 U/L (0-33) 11/08/24 06:40 C-Reactive Protein 3.0 mg/L (0.0-4.9) 11/08/24 06:40 Total Protein 8.6 g/dL (6.6-8.7) 11/08/24 06:40 Albumin 4.2 g/dL (3.5-5.2) 11/08/24 06:40 Globulin 4.4 g/dL (1.3-4.6) 11/08/24 06:40 All radiology interpretation(s) finalized by discharge Discharge Plan Discharge Patient Disposition: Home Clinical Impression: Wound of foot Condition: Stable Prescriptions: New ciprofloxacin HCl [Cipro] 500 mg tablet 500 mg PO BID Qty: 14 0RF No Action tramadol 100 mg tablet 100 mg PO TID gabapentin 600 mg tablet 600 mg PO TID aspirin [Adult Low Dose Aspirin] 81 mg tablet,delayed release (DR/EC) 81 mg PO DAILY prednisone 10 mg tablet See Rx Instructions PO .COMPLEX PRN (Reason: joint pain) Qty: 30 1RF Rx Instructions: take 1 or 2 tab daily for 3-7 days prn joint pain flare PO PRN; rosuvastatin [Crestor] 40 mg tablet 40 mg PO QPM famotidine [Pepcid] 20 mg tablet 20 mg PO BID cetirizine [Zyrtec] 10 mg tablet 10 mg PO DAILY PRN (Reason: allergies) hydroxychloroquine 200 mg tablet 200 mg PO BID Qty: 180 1RF mupirocin [Centany] 2 % ointment 1 applic topical BID Qty: 22 0RF levothyroxine 112 mcg tablet See Rx Instructions .ROUTE .COMPLEX Qty: 30 5RF Dose Instruction: TAKE 1 TABLET BY MOUTH EVERY DAY Rx Instructions: TAKE 1 TABLET BY MOUTH EVERY DAY Mounjaro 15 mg/0.5 mL pen injector See Rx Instructions .ROUTE .COMPLEX Qty: 2 2RF Dose Instruction: INJECT 15mg SUBCUTANEOUSLY EVERY 7 DAYS Rx Instructions: INJECT 15mg SUBCUTANEOUSLY EVERY 7 DAYS terbinafine HCl 250 mg tablet 250 mg PO DAILY 30 Days Qty: 30 2RF epinephrine 0.3 mg/0.3 mL auto-injector See Rx Instructions .ROUTE .COMPLEX Rx Instructions: inject 0.3mg NEEDED FOR anaphylaxis. REPEAT if symptoms recur as you are going TO er Discharge Orders: Discharge ED (Routine); Ordered 11/08/24 Ordered By: Juan Rm Referrals: Jens Guillermo DPM [Physician, Podiatry] - 4-7 days Discharge Diet: Advance as tolerated Discharge Activity: Resume usual activity Patient Instructions: Acute Wound Care (ED) Print Language: Serbian Coding Level of Care Code ED Director Of Flight Operations for Kaycee Vidal
[2024-11-08 06:31] VITALS: BP 165/95; PULSE 74; RESP 16; O2SAT 99
--- NOTE | 2024-11-08 06:33 | XRR_ITS ---
PROCEDURE INFORMATION: Exam: XR Right Foot Exam date and time: 11/08/2024 6:35 AM Age: 54 years old Clinical indication: Prior surgery; Surgery date: <1 month; Surgery type: 4th digit amputation 10/12/2024; Patient has open wound in between 3rd and 5th digit of RT foot. TECHNIQUE: Imaging protocol: Radiologic exam of the right foot. Views: 3 or more views. Total images: 3 COMPARISON: 1. CT foot RT w con [id number] 10/08/2024 3:31 PM 2. CR XR foot RT min 3V* [id number] 10/08/2024 2:31 PM 3. CR XR foot RT min 3V* [id number] 10/04/2024 2:32 PM FINDINGS: Bones/joints: Interval resection of right 4th toe at the level of the distal metatarsal metaphysis demonstrating relatively sharply demarcated bony amputation stump. Generalized enthesopathy. Generalized osteoarthritis. No acute displaced fracture, subluxation or dislocation. Soft tissues: Mild forefoot soft tissue swelling. No subcutaneous emphysema at the soft tissue surgical wound between the 3rd and 5th toes. XR/XR foot RT min 3V* [id number] IMPRESSION: 1. Interval resection of right 4th toe at the level of the distal metatarsal metaphysis demonstrating relatively sharply demarcated bony amputation stump and open wound without abundant subcutaneous emphysema between the 3rd and 5th toes. Otherwise no specific radiographic manifestations of postprocedural osteomyelitis. 2. No acute displaced fracture. COMMENTS: If high clinical index of suspicion for osteomyelitis is persistent, consider either nuclear medicine white blood cell scan or PET-CT, alternatively MRI forefoot without contrast may be useful in this setting.
[2024-11-08 06:48] LABS: Hematocrit 41.3 % (36-47); Hemoglobin 13.20 g/dL (11.27-16.99); Mean Corpuscular HGB Conc 32.0 g/dL (30-55); Mean Corpuscular Hemoglobin 33.0 pg (27-33); Mean Corpuscular Volume 103.3 fl (85-98); Nucleated Red Blood Cells % 0 %; Platelet Count 198 10^3/cmm (157-399); Red Blood Count 4.00 10^6/uL (3.85-5.65); White Blood Count 6.62 10^3/uL (3.29-11.43)
[2024-11-08 07:11] LABS: Alanine Aminotransferase 22 U/L (0-33); Albumin Level 4.2 g/dL (3.5-5.2); Alkaline Phosphatase 106 U/L (35-105); Aspartate Amino Transferase 28 U/L (0-32); Calcium 9.7 mg/dL (8.5-10.5); Carbon Dioxide 26 mmol/L (22-29); Chloride 98 mmol/L (98-107); Globulin 4.4 g/dL (1.3-4.6); Glucose 114 mg/dL (65-115); Sodium 136 mmol/L (136-145); Total Protein 8.6 g/dL (6.6-8.7)
[2024-11-08 07:28] LABS: Anion Gap 16.6 (5-19); Potassium 4.6 mmol/L (3.5-5.1)
[2024-11-08 07:29] VITALS: BP 145/79; PULSE 74; O2SAT 100
[2024-11-08 07:29] LABS: Blood Urea Nitrogen 9 mg/dL (6-20); Creatinine Clr Calc Pharmacy 79.9839; Osmolality Calculated 282 mOsm/kg (285-295)
== END 2024-11-08 07:30 | disposition home or self-care (01) ==
PROVIDERS: Emergency Provider Emergency Medicine; PCP Family Medicine
DX: S91.301A Unspecified open wound, right foot, initial encounter (principal); Z79.82 Long term (current) use of aspirin; E11.40 Type 2 diabetes mellitus with diabetic neuropathy, unspecified; I10 Essential (primary) hypertension; X58.XXXA Exposure to other specified factors, initial encounter; Z89.421 Acquired absence of other right toe(s)
CPT/HCPCS: 36415; 73630; 80053; 85025; 85651; 86140; 99284

== ENCOUNTER 2024-11-13 08:40 | Emergency (ER) | payer OTHER, SELFPAY ==
--- OUTSIDE RECORDS SUMMARY | 2024-11-11 05:15 | XMS_ITS ---
Author Organization [facility] Address [address] [place] [address] Care Team Providers Care Chalk Machine Operator Name Role Phone Kunal Leigh MD Primary Care Provider Frederick Briones Unavailable [phone] Allergies Allergen (clinical drug ingredient) Drug/Non Drug Allergy documented on EMR Reaction Allergy Type Onset Date Status Alpha-Gal Unknown Drug Allergy Active codeine Codeine nausea and vomiting Drug Allergy Active REASON FOR VISIT PVD - OZH CTA AFRO 10/09/24: occluded right SFA and right popliteal, Severe left peroneal and SARI disease Medications Medication SIG (Take, Route, Frequency, Duration) Notes Start Date End Date Status Aspirin 81 81 MG Tablet Delayed Release 1 tablet Orally Once a day Active Pepcid 20 MG Tablet 1 tablet at bedtime as needed Orally Once a day Active ZyrTEC 10 MG Tablet Chewable 1 tablet Or ally Once a day Active Hydroxychloroquine Sulfate 2 00 MG Tablet as directed Orally Active traMADol HCl 100 MG Tablet 1 tablet as n eeded Orally every 8 hrs Active Levothyroxine Sodium 112 MCG Tablet 1 tablet in the morning on an empty stomach Orally Once a day Active Crestor 40 MG Tablet 1 tablet Orally Onc e a day Active Gabapentin 600 MG Tablet 1 tablet Orally Once a day Active Social History Tobacco Use: Social History Observation Description Date Details (start date - stop date) Former Smoker NA - NA Social History Drugs/Alcohol: Social Info Question Answer Notes Caffeine Intake: 1-2 cups per day Tobacco Use: Social Info Question Answer Notes Tobacco Control (Standard) Tobacco use: Former smoker How long has it been since you last smoked? Greater than 10 years Additional Details Category Social Info Options Details Drugs/Alcohol: Do you smoke marijuana? De nies Do you drink alcohol? No Vital Signs Temperature 97.0 degrees Fahrenheit 11/12/19 25 Blood pressure systolic 138 mm Hg 11/12/19 25 Blood pressure diastolic 88 mm Hg 025 Heart Rate 65 /min 11/11/2024 Weight 157.63 lbs 11/11/2024 Oximetry 99 % 11/11/2024 Weight-kg 71.5 kg 11/11/2024 Encounters Encounter Location Date Provider Diagnosis [facility] [address] [place] [address] 11/11/2024 Frederick Ocasio PVD (peripheral vascular disease) I73.9 and Chronic critical ischemia of extremity I70.229 Assessments Encounter Date Diagnosis (ICD Code) Assessment Notes Treatment Notes Treatment Clinical Notes Section Notes 11/11/2024 PVD (peripheral vascular disease) (ICD-10 - I73.9) 54-year-old woman with critical limb ischemia of the right lower extremity. Patient has a right SFA occlusion with reconstitution of the above-knee popliteal artery from robust collaterals system from the deep femoral artery. This is in the setting of a fourth toe amputation. She has an open wound that is healing slowly. She does not have any rest pain. ABIs were obtained today. They are better on the right than I expected. Her right PT SHASHI 0.83 and DP 0.79. This is likely an evidence of a robust collateral system. They are normal on the left. I explained to Ms. Miranda that she does meet indication for revascularization given her slow to heal wound. However, I am rather surprised that her ABIs are not as reduced as I would expect with an SFA occlusion. She also states that her wound is healing slowly. We discussed all of her options. At the present time, she is in favor of close observation given that the wound is healing slowly. This will also allow us to evaluate for further options. We will see her back in 2 weeks for wound check and also obtain bilateral lower extremity venous duplex for mapping of her greater saphenous vein. We will finalize a plan at that time. In terms of her for revascularization a femoral below-knee popliteal bypass with vein is likely the most suitable option in order to not sacrifice her robust collateral system from her deep femoral vein to her above-knee popliteal artery. 11/11/2024 Chronic critical ischemia of extremity (ICD-10 - I70.229) 54-year-old woman with critical limb ischemia of the right lower extremity. Patient has a right SFA occlusion with reconstitution of the above-knee popliteal artery from robust collaterals system from the deep femoral artery. This is in the setting of a fourth toe amputation. She has an open wound that is healing slowly. She does not have any rest pain. ABIs were obtained today. They are better on the right than I expected. Her right PT SHASHI 0.83 and DP 0.79. This is likely an evidence of a robust collateral system. They are normal on the left. I explained to Ms. Miranda that she does meet indication for revascularization given her slow to heal wound. However, I am rather surprised that her ABIs are not as reduced as I would expect with an SFA occlusion. She also states that her wound is healing slowly. We discussed all of her options. At the present time, she is in favor of close observation given that the wound is healing slowly. This will also allow us to evaluate for further options. We will see her back in 2 weeks for wound check and also obtain bilateral lower extremity venous duplex for mapping of her greater saphenous vein. We will finalize a plan at that time. In terms of her for revascularization a femoral below-knee popliteal bypass with vein is likely the most suitable option in order to not sacrifice her robust collateral system from her deep femoral vein to her above-knee popliteal artery. Plan Of Treatment Next Appt Details Provider Name:Ventura lerma, 11/24/2024 02:00:00 PM, [address] [place] [address] ANUJA GUNDERSON, [place], [address], Provider Name:Frederick Ocasio , 11/24/2024 02:30:00 PM, [address] [place] [address] ANUJA GUNDERSON, [place], [address], History and Physical Notes * HPI (History of Present Illness) Category Sub-Category Detail Notes Category Not es Provider Note Patient is a 54-year-old woman with a history of hyperlipidemia and diabetes who presents for evaluation of peripheral arterial disease. Patient developed a wound along the plantar aspect of her forefoot in early October. This required debridement as well as amputation of her right fourth toe. She has undergone multiple vascular studies demonstrating a right SFA occlusion. This includes an arterial duplex as well as a CTA. He has also undergone a right lower extremity arteriogram via left femoral access. The images were reviewed. Revascularization of her right SFA was not successful from an antegrade approach. She has been referred for possible retrograde pedal access versus bypass. Patient denies any rest pain. She does report neuropathy on both legs. She states that since her amputation her wound has been healing though it has been healing slowly. Prior to developing wound she had no issues with ambulation. She denies any previous lower extremity procedures on the right leg. Patient is a former smoker. She quit approximately 20 years ago. Patient is currently on aspirin 81 mg and Crestor 40 mg. Examination Category Sub-Category Detail Notes Category Not es General Examination GENERAL APPEARANCE: alert, w ell hydrated, in no distress, converses well NECK/THYROID: neck supple without thyromegaly or masses HEART: Regular rate and rhy thm LUNGS: clear to auscultatio n bilaterally, no wheezes, rales, or rhonchi ABDOMEN: bowel sounds present , soft, nontender, nondistended NEUROLOGIC: alert and oriented, motor and sensory exam are intact. EXTREMITIES: no edema. VASCULAR Palpable radial puls es bilaterallyPalpable femoral pulses bilaterally. No groin hematoma on the left side.Palpable DP PT pulse on the left.Robust DP Doppler signal on the right. Faint monophasic PT Doppler signal on the right. Status post right fourth toe amputation. Wound bed appears clean. 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 PVD - OZH CTA AFRO 10/09/24: occluded right SFA and right popliteal, Severe left peroneal and SARI disease. * HPI: P rovider Note: Patient is a 54-year-old woman with a history of hyperlipidemia and diabetes who presents for evaluation of peripheral arterial disease. Patient developed a wound along the plantar aspect of her forefoot in early October. This required debridement as well as amputation of her right fourth toe. She has undergone multiple vascular studies demonstrating a right SFA occlusion. This includes an arterial duplex as well as a CTA. He has also undergone a right lower extremity arteriogram via left femoral access. The images were reviewed. Revascularization of her right SFA was not successful from an antegrade approach. She has been referred for possible retrograde pedal access versus bypass. Patient denies any rest pain. She does report neuropathy on both legs. She states that since her amputation her wound has been healing though it has been healing slowly. Prior to developing wound she had no issues with ambulation. She denies any previous lower extremity procedures on the right leg. Patient is a former smoker. She quit approximately 20 years ago. Patient is currently on aspirin 81 mg and Crestor 40 mg. * ROS: G eneral/Constitutional: Denies C hange in appetite. D enies F atigue/Tiredness. D enies H eadache. D enies L ightheadedness. R espiratory: Denies S hortness of breath. D enies W heezing.?Denies C ough. C ardiovascular: Denies C hest pain. D enies D izziness. D enies?Palpitations. S welling in hands/feet R foot. G astrointestinal: Denies A bdominal pain. D enies C onstipation. D enies D iarrhea. D enies N ausea. D enies V omiting. G enitourinary: Denies D ifficulty urinating. D enies F requent urination. D enies B urning Urination. P eripheral Vascular: Denies C old extremities. D enies D ecreased sensation in extremities. D enies P ain/cramping in legs after exertion. D enies P ainful extremities. D enies U lceration of feet. * Medical History: * Surgical History: * Hospitalization/Major Diagno stic Procedure: * Family History: F ather: alive, Nothing. M other: alive, Diabetes, Low Thyroid, Hypertension. F amily History Verified.. Diabetes, Fibromyalgia. * Social History: T obacco Use: T obacco Control (Standard) T obacco use: F ormer smoker H ow long has it been since you last smoked??Greater than 10 years D rugs/Alcohol: C affeine I ntake: 1 -2 cups per day Do you smoke marijuana?: Denies. Do you drink alcohol?: No. S ocial History Verified. * Medications: T aking Aspirin 81 81 MG Tablet Delayed Release 1 tablet Orally Once a day , Taking Crestor 40 MG Tablet 1 tablet Orally Once a day , Taking Gabapentin 600 MG Tablet 1 tablet Orally Once a day , Taking Hydroxychloroquine Sulfate 200 MG Tablet as directed Orally , Taking Levothyroxine Sodium 112 MCG Tablet 1 tablet in the morning on an empty stomach Orally Once a day , Taking Pepcid 20 MG Tablet 1 tablet at bedtime as needed Orally Once a day , Taking traMADol HCl 100 MG Tablet 1 tablet as needed Orally every 8 hrs , Taking ZyrTEC 10 MG Tablet Chewable 1 tablet Orally Once a day , Medication List reviewed and reconciled with the patient * Allergies: C odeine: nausea and vomiting, Alpha-Gal. Allergies Verified. Objective: * Vitals: W t:157.63lbs, Wt-k.5 kg, Temp:97.0F, BP:138/88mm Hg, HR:65/min, Oxygen sat %:99%, O2 Source: RA, Pain scale: 0 1-10. * Examination: G eneral Examination: GENERAL APPEARANCE: a lert, well hydrated, in no distress, converses well. NECK/THYROID: n aviva supple w ithout thyromegaly or masses. HEART: R egular rate and rhythm. LUNGS: c lear to auscultation bilaterally, no wheezes, rales, or rhonchi. VASCULAR P alpable radial pulses bilaterallyPalpable femoral pulses bilaterally. No groin hematoma on the left side.Palpable DP PT pulse on the left.Robust DP Doppler signal on the right. Faint monophasic PT Doppler signal on the right. Status post right fourth toe amputation. Wound bed appears clean.. ABDOMEN: b owel sounds present, soft, nontender, nondistended. EXTREMITIES: n o edema.. NEUROLOGIC: a lert and oriented, motor and sensory exam are intact.. Assessment: * Assessment: 1. C hronic critical ischemia of extremity - I70.229 (Primary) 2 . P VD (peripheral vascular disease) - I73.9 54-year-old woman with criti romie limb ischemia of the right lower extremity. Patient has a right SFA occlusion with reconstitution of the above-knee popliteal artery from robust collaterals system from the deep femoral artery. This is in the setting of a fourth toe amputation. She has an open wound that is healing slowly. She does not have any rest pain. ABIs were obtained today. They are better on the right than I expected. Her right PT SHASHI 0.83 and DP 0.79. This is likely an evidence of a robust collateral system. They are normal on the left. I explained to Ms. Mrianda that she does meet indication for revascularization given her slow to heal wound. However, I am rather surprised that her ABIs are not as reduced as I would expect with an SFA occlusion. She also states that her wound is healing slowly. We discussed all of her options. At the present time, she is in favor of close observation given that the wound is healing slowly. This will also allow us to evaluate for further options. We will see her back in 2 weeks for wound check and also obtain bilateral lower extremity venous duplex for mapping of her greater saphenous vein. We will finalize a plan at that time. In terms of her for revascularization a femoral below-knee popliteal bypass with vein is likely the most suitable option in order to not sacrifice her robust collateral system from her deep femoral vein to her above-knee popliteal artery. Plan: * Procedures: A nkle-brachial index Right side PT 0.83, DP 0.79. Left side PT 1.01, DP 1.06. Impression Mild to moderately reduced ABIs on the right side. Normal ABIs on the left. * Procedure Codes: 3 079F DIAST BP 80-89 MM HG, 3075F SYST BP GE 130 - 139MM HG Billing Information: * Procedure Codes: 3079F DIAST BP 80-89 MM HG. 3075F SYST BP GE 130 - 139MM HG. * Sign off status: Completed true * Provider: Fahad Ocasio MD Date: 0 11/11/2024 Generated for Jose duque/Erika/Henriettaitting on: 0 11/13/2024 08:50 AM CDT
--- OUTSIDE RECORDS SUMMARY | 2024-11-13 08:50 | XMS_ITS | Patient Health Record ---
Author Organization [facility] Address [address] [facility] [place] [address] Care Team Providers Care Ed Tech Name Role Phone Kunal Leigh MD Primary Care Provider Frederick Briones Unavailable [phone] Charlie Flores Unavailable [phone] Allergies Allergen (clinical drug ingredient) Drug/Non Drug Allergy documented on EMR Reaction Allergy Type Onset Date Status Alpha-Gal Unknown Drug Allergy Active codeine Codeine nausea and vomiting Drug Allergy Active Results Component Value Reference Range Notes US Ankle Brachial Pressure I ndex-62455 (Not yet reviewed by provider) Interpretation: Performing Lab: Notes/Report: This report was dictated at the [facility] FINAL REPORT Read This report was dict ated at the [facility] US Ankle Brachial Pressure I ndex-76245 (Not yet reviewed by provider) Interpretation: Performing Lab: Notes/Report: [id number] Reason For Referral Reason eval and treat Diagnosis 1 Pain in left foot (M 79.672) Diagnosis 2 Pain in right foot ( M79.671) Referring Provider First Name Domo Referring Provider Last Name Marija Referring Provider Speciality Pain Medic ine Referred Organization [facility] Referred Provider Charlie Flores Referred Address [address] [facility],[place],[address] Referred Provider Specialty Intervention al Pain Medicine General Notes Maranda Miller 5 09:44:57 AM >Called and left mess to return call to schedule darnelltIssac Melody 08/10/2024 10:30:48 AM >Mailed nppw Referral Priority Routine Reason PVD - OZH CTA AFRO : occluded right SFA and right popliteal, Severe left peroneal and SARI disease Diagnosis 1 PVD (peripheral vasc ular disease) (I73.9) Referring Provider First Name Fariha Referring Provider Last Name Hilario Referring Provider Speciality Nurse Shanell meyer Referred Organization [facility] Referred Provider Frederick Ocasio Referred Address [address] [place] [address] [address],[address], Referred Provider Specialty Vascular [facility] General Notes Samara Reddy, GLENROY 05/2024 09:31:13 AM CDT > Please schedule with Barry Stuart Lisa, GLENROY 11/04/2024 10:08:49 AM CDT > images in donovanNadeem Brittany M 11/04/2024 02:34:48 PM CDT > Appointment scheduled on 11.11 @ 10:15 Referral Priority Routine Medications Medication SIG (Take, [...] 00 MG Tablet as directed Orally Active Levothyroxine Sodium 112 MCG Tablet 1 tablet in the morning on an empty stomach Orally Once a day Active Crestor 40 MG Tablet 1 tablet Orally Onc e a day Active Gabapentin 600 MG Tablet 1 tablet Orally Once a day Active traMADol HCl 100 MG Tablet 1 tablet as n eeded Orally every 8 hrs Active Social History Tobacco Use: Social History [...] Status Risk Notes Problem Chronic pain syndrome (674225469) Chronic pain syndrome (G89.4) Active confirmed Problem Peripheral vascular disease (592485675) PVD (peripheral vascular disease) (I73.9) Active confirmed Problem Diabetic peripheral neuropathy (117960869) Diabetic peripheral neuropathy (E11.42) Active confirmed Problem Abnormal gait (54936514) Abnormality of gait and mobility (R26.9) Active confirmed Problem Chronic critical ischemia of extremity (I70.229) Active confirmed Vital Signs Heart Rate 65 /min 11/11/2024 Temperature 97.0 degrees Fahrenheit 11/11/2024 Oximetry 99 % 11/11/2024 Blood pressure diastolic 88 mm Hg 11/11/2024 Weight-kg 71.5 kg 11/11/2024 Blood pressure systolic 138 mm Hg 11/11/2024 Weight 157.63 lbs 11/11/2024 Encounters Encounter Location Date Provider Diagnosis [facility] [address] [address] 10/21/2024 Charlie Flores Chronic pain syndrome G89.4 ; Diabetic peripheral neuropathy E11.42 ; Abnormality of gait and mobility R26.9 and detention (current) use of opiate analgesic Z79.891 [facility] [address] [address] 11/11/2024 Frederick Ocasio PVD (peripheral vascular disease) [...] potential treatment option. She met with a front office 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 from [employer] earlier today, and we will continue this discussion at future visits. We plan to see her back in a couple of months and proceed accordingly. 10/21/2024 Diabetic peripheral neuropathy (ICD-10 - E11.42) 11/11/2024 PVD (peripheral vascular disease) (ICD-10 - [...] on the left. I explained to Ms. Souza that she does meet indication for revascularization [...] on the left. I explained to Ms. Souza that she does meet indication for revascularization [...] femoral vein to her above-knee popliteal artery. 10/21/2024 Abnormality of gait and mobility (ICD-10 - R26.9) 10/21/2024 detention (current) use of opiate analgesic (ICD-10 - Z79.891) 10/21/2024 Other I, Chelsea Mei, am scribing for Dr. Charlie Flores. I, Dr. Charlie Flores, personally performed the services described in this documentation, as scribed by Chelsea Mei, and it is both accurate and complete. Plan Of Treatment Pending Test Test Name Order Date US Ankle Brachial Pressure Index-[id number] 0 11/11/2024 US Ankle Brachial Pressure Index-69534 0 11/11/2024 Next Appt Details Provider Name:Ventura lerma, 11/24/2024 02:00:00 PM, [address] [place] [address] [address]UJA [address], [place], [address], Provider Name:Frederick Ocasio , 11/24/2024 02:30:00 PM, [address] [place] [address] ANUJA [address]UND[address], [place], [address], Insurance Providers Payer Name Payer Address Payer Phone Subscriber Number Group Number Insured Name Patient Relationship to Insured Coverage Start Date Coverage End Date [employer] [address] [place] [phone] [id number] Fatoumata Souza Self - patient is the insured [facility] [address] [place] [address] [id number] Fatoumata Souza Self - patient is the insured Medical (General) History Medical History History ICD Code High Blood Pressure Diabetes constipation Thyroid disease Surgical History Surgery Date(Month/Year) carpal tunnel release section hysterectomy Hospitalization History Reason Date(Month/Year) ER Visit - Incision check 11.08.24
--- OUTSIDE RECORDS SUMMARY | 2024-11-13 08:50 | XMS_ITS | Clinical Summary ---
Author Organization [facility] Address [address] [place] [address] Phone Care Team Providers Care Web Content Manager Name Role Phone Unavailable Primary Care Provider [...] 2) 2018 INFLUENZA VACCINE (#1) 2024 Insurance [facility]
[2024-11-13 08:53] VITALS: BP 167/90; PULSE 79; RESP 17; TEMP 36.8; O2SAT 100; BMI 28.3
--- NOTE | 2024-11-13 08:55 | W.ED.GENADLT ---
HPI - General Adult General: Chief complaint: Eye Problems Stated complaint: L eye swelling going down face Time Seen by Provider: 11/13/24 08:45 History of Present Illness: 54-year-old female presents emergency room complaining of swelling to the left eye and eyelid. Began yesterday she was seen by ophthalmology yesterday she reports that they had no significant findings and just observe she was not started on any medications this morning she woke up she has some bruising to the upper eyelid and significant increase swelling to the upper and lower eyelids to the point where she is not able to open the eye. Her vision is still preserved and she forces the eyelid open she can still see well. No direct trauma to the eye. Associated symptoms: Deny chest pain, dyspnea or rash Related Data Home Medications ?Medication ?Instructions ?Recorded ?Confirmed aspirin 81 mg tablet,delayed 81 mg PO DAILY 04/23/22 11/11/24 release (Adult Low Dose Aspirin) gabapentin 600 mg tablet 600 mg PO TID 04/23/22 11/11/24 tramadol 100 mg tablet 100 mg PO TID 04/23/22 11/11/24 cetirizine 10 mg tablet (Zyrtec) 10 mg PO DAILY PRN allergies 05/03/22 11/11/24 famotidine 20 mg tablet (Pepcid) 20 mg PO BID 05/03/22 11/11/24 rosuvastatin 40 mg tablet (Crestor) 40 mg PO QPM 05/03/22 11/11/24 epinephrine 0.3 mg/0.3 mL See Rx Instructions .Route .COMPLEX 10/08/24 11/11/24 injection, auto-injector Previous Rx's ?Medication ?Instructions ?Recorded prednisone 10 mg tablet See Rx Instructions PO .COMPLEX 05/21/23 PRN joint pain #30 tabs tirzepatide 15 mg/0.5 mL See Rx Instructions .Route 09/14/24 subcutaneous pen injector .COMPLEX #2 mL (Mounjaro) hydroxychloroquine 200 mg tablet 200 mg PO BID #180 tabs 10/06/24 Held on 10/14/24. Instructions: Resume on 11/16/24. hold until yousee ciprofloxacin HCl 500 mg tablet 500 mg PO BID #14 tabs 11/08/24 (Cipro) amoxicillin 875 mg-potassium 1 tab PO BID #14 tabs 11/13/24 clavulanate 125 mg tablet levothyroxine 112 mcg tablet See Rx Instructions .Route 11/16/24 .COMPLEX #30 tabs Allergies Allergy/AdvReac Type Severity Reaction Status Date / Time Alpha-Gal Allergy Severe ALGY-Anaphy Verified 11/11/24 06:56 (Cyhnnsmsx-Dqdpg-3,3-Gala laxis Review of Systems Const: Denies: fever(s) or chills Card: Denies: chest pain Resp: Denies: dyspnea Musc: Denies: neck pain or back pain Skin/Breast: Denies: rash PFSH ED PFSH: Medical History 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 Immunization counseling High risk medication use Polyarthralgia Positive DANILO (antinuclear antibody) 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 Diabetes Thyroid disease Joint pain Hypertension Neuropathy Carpal tunnel syndrome on both sides Surgical History History of hysterectomy History of delivery Family History Other Cancer Diabetes Hypertension Denies family history of Rheumatoid arthritis Lupus CAD (coronary artery disease) Hyperlipidemia Chronic kidney disease (CKD) Family history of premature coronary artery disease Lung disease Stroke Social History Smoking and tobacco/nicotine status: former use of tobacco/nicotine Alcohol intake: never Substance/Drug Use: never Physical Exam Const: COMMON NORMALS: no acute distress GENERAL APPEARANCE: cooperative and comfortable ORIENTATION/CONSCIOUSNESS: Yes awake, Yes oriented to person, Yes oriented to place and Yes oriented to time HENMT: COMMON NORMALS: normocephalic, atraumatic and hearing grossly normal bilaterally HEAD & SCALP: normocephalic and atraumatic Eye: OTHER: Significant swelling of the upper and lower eyelids of the left eye. There are some ecchymosis to the lateral portion of the left upper eyelid no abrasions no puncture parisi no lacerations it is mildly erythematous. When the eye is forced open visual acuity is normal. The sclera and conjunctiva are clear and normal. Resp: COMMON NORMALS: normal respiratory effort, No retractions, No use of accessory muscles and clear to auscultation bilaterally AUSCULTATION: clear to auscultation bilaterally Cardio: COMMON NORMALS: regular rate, regular rhythm and No murmurs present (Cardio) RATE: regular rate RHYTHM: regular rhythm Extremity: COMMON NORMALS: normal to inspection, capillary refill normal, no clubbing, cyanosis or edema, no calf tenderness and no pedal edema Neuro: SENSORIUM/ORIENTATION: Yes oriented to person, Yes oriented to place and Yes oriented to time Skin: COMMON NORMALS: no rashes or lesions noted GENERAL SKIN EXAM: no rashes or lesions noted Course Vital Signs: Vital signs: Vital Signs Temperature 98.3 F 11/13/24 08:53 Pulse Rate 82 11/13/24 10:27 Respiratory Rate 17 11/13/24 08:53 Blood Pressure 170/92 11/13/24 10:27 Pulse Oximetry 100 11/13/24 10:27 Oxygen Delivery Me thod Room Air 11/13/24 08:53 MDM - General Adult Medical Decision Making CT shows preseptal cellulitis white count normal will start Augmentin. Apply moist heat to the area and follow-up with primary care if she has further symptoms. Medical Records I reviewed the patient's medical records. Lab Data I reviewed the patient's lab results. 11/13/24 08:59 11/13/24 08:[address] 11/13/24 09:07 IMPRESSION: 1. Preseptal LEFT periorbital cellulitis. No evidence of postseptal extension. Normal intraconal fat. 2. No evidence of drainable abscess or fluid collection. 3. Paranasal sinuses are well aerated. Laboratory Results WBC 10.34 10^3/uL (3.29-11.43) 11/13/24 08:59 RBC 3.69 10^6/uL (3.85-5.65) L 11/13/24 08:59 Hgb 12.30 g/dL (11.27-16.99) 11/13/24 08:59 Hct 36.9 % (36-47) 11/13/24 08:59 MCV 100.0 fl (85-98) H 11/13/24 08:59 MCH 33.3 pg (27-33) H 11/13/24 08:59 MCHC 33.3 g/dL (30-55) 11/13/24 08:59 RDW 13.8 % (12.1-15.1) 11/13/24 08:59 Plt Count 253 10^3/cmm (157-399) 11/13/24 08:59 MPV 8.9 fL (7.4-10.4) 11/13/24 08:59 Neut % (Auto) 76.8 % 11/13/24 08:59 Lymph % (Auto) 13.4 % 11/13/24 08:59 [place] % (Auto) 5.3 % 11/13/24 08:59 Eos % (Auto) 3.5 % 11/13/24 08:59 Baso % (Auto) 0.7 % 11/13/24 08:59 Neut # (Auto) 7.94 10^3/uL (1.8-7.7) H 11/13/24 08:59 Lymph # (Auto) 1.4 10^3/uL (0.8-4.8) 11/13/24 08:59 [place] # (Auto) 0.6 10^3/uL (0.2-0.9) 11/13/24 08:59 Eos # (Auto) 0.4 10^3/uL (0.0-0.8) 11/13/24 08:59 Baso # (Auto) 0.1 10^3/uL (0.0-0.1) 11/13/24 08:59 Nucleated RBC % (auto) 0 % 11/13/24 08:59 Nucleated RBCs # 0.0 /100WBC 11/13/24 08:59 Sodium 134 mmol/L (136-145) L 11/13/24 08:59 Potassium 4.9 mmol/L (3.5-5.1) 11/13/24 08:59 Chloride 96 mmol/L (98-107) L 11/13/24 08:59 Carbon Dioxide 26 mmol/L (22-29) 11/13/24 08:59 Anion Gap 16.9 (5-19) 11/13/24 08:59 BUN 13 mg/dL (6-20) 11/13/24 08:59 Creatinine 0.7 mg/dL (0.5-0.9) 11/13/24 08:59 GFR Calculation 86.6 mL/min (90-130) L 11/13/24 08:59 Glucose 119 mg/dL (65-115) H 11/13/24 08:59 Calculated Osmolality 279 mOsm/kg (285-295) L 11/13/24 08:59 Calcium 9.5 mg/dL (8.5-10.5) 11/13/24 08:59 Total Bilirubin 0.4 mg/dL (0.15-1.2) 11/13/24 08:59 AST 21 U/L (0-32) 11/13/24 08:59 ALT 17 U/L (0-33) 11/13/24 08:59 Alkaline Phosphatase 95 U/L (35-105) 11/13/24 08:59 Total Protein 8.0 g/dL (6.6-8.7) 11/13/24 08:59 Albumin 4.0 g/dL (3.5-5.2) 11/13/24 08:59 Globulin 4.0 g/dL (1.3-4.6) 11/13/24 08:59 All radiology interpretation(s) finalized by discharge Discharge Plan Discharge Patient Disposition: Home Clinical Impression: Preseptal cellulitis of left eye Condition: Stable Prescriptions: New amoxicillin-pot clavulanate 875-125 mg tablet 1 tab PO BID Qty: 14 0RF No Action tramadol 100 mg tablet 100 mg PO TID gabapentin 600 mg tablet 600 mg PO TID aspirin [Adult Low Dose Aspirin] 81 mg tablet,delayed release (DR/EC) 81 mg PO DAILY prednisone 10 mg tablet See Rx Instructions PO .COMPLEX PRN (Reason: joint pain) Qty: 30 1RF Rx Instructions: take 1 or 2 tab daily for 3-7 days prn joint pain flare PO PRN; rosuvastatin [Crestor] 40 mg tablet 40 mg PO QPM famotidine [Pepcid] 20 mg tablet 20 mg PO BID cetirizine [Zyrtec] 10 mg tablet 10 mg PO DAILY PRN (Reason: allergies) hydroxychloroquine 200 mg tablet 200 mg PO BID Qty: 180 1RF Mounjaro 15 mg/0.5 mL pen injector See Rx Instructions .ROUTE .COMPLEX Qty: 2 2RF Dose Instruction: INJECT 15mg SUBCUTANEOUSLY EVERY 7 DAYS Rx Instructions: INJECT 15mg SUBCUTANEOUSLY EVERY 7 DAYS levothyroxine 112 mcg tablet See Rx Instructions .ROUTE .COMPLEX Qty: 30 5RF Dose Instruction: TAKE 1 TABLET BY MOUTH EVERY DAY Rx Instructions: TAKE 1 TABLET BY MOUTH EVERY DAY epinephrine 0.3 mg/0.3 mL auto-injector See Rx Instructions .ROUTE .COMPLEX Rx Instructions: inject 0.3mg NEEDED FOR anaphylaxis. REPEAT if symptoms recur as you are going TO er ciprofloxacin HCl [Cipro] 500 mg tablet 500 mg PO BID Qty: 14 0RF Discharge Orders: Discharge ED (Routine); Ordered 11/13/24 Ordered By: Torito Hui Referrals: Kunal Leigh MD [Primary Care Provider, Family Practice] Discharge Diet: Usual diet Discharge Activity: Resume usual activity Patient Instructions: Opioid Safety, Pain Management, Patient Portal & Ilia Instructions Activity Restrictions/Additional Instructions: Thank you for choosing [facility] for your healthcare needs today. It is very important that you follow up as instructed or that you return to the Emergency Department should you have concerns or if your condition changes or worsens in any way. Emergency department visits are focused on emergent conditions, in some cases you may require further evaluation on an outpatient basis. You are seen today with significant amount of swelling on your left eye in the upper and lower eyelid extending into your upper cheek. CT does not show any signs of infection extending around the globe of the eye itself it is all anterior. This is called preseptal cellulitis. Treatment is warm compresses and oral antibiotics Augmentin 1 pill twice a day for 7 days. You should follow-up with your primary care doctor within the next week. (Please note that included in your discharge packet is information concerning opioid safety and pain management. This information is given to all patients were discharged from the ER regardless of their discharge diagnosis or the medicines they usually take or are prescribed.) Print Language: British Coding Level of Care Code ED Binding Printer for Kaycee Vidal
--- NOTE | 2024-11-13 09:07 | CT_ITS ---
WS: [id number] CT ORBITS TECHNIQUE: Contrast-enhanced CT of the orbits with coronal and sagittal reformatted images. CLINICAL INFORMATION: Cellulitis COMPARISON: None. DLP: 352.[address] scans at [facility] use at least one of these dose optimization techniques: automated exposure control; mA and/or kV adjustment per patient size (includes targeted exams where dose is matched to clinical indication); or iterative reconstruction. FINDINGS: Marked diffuse soft tissue edema with inflammatory stranding overlying the LEFT orbit involving the periorbital soft tissues. Findings compatible with preseptal cellulitis. No evidence of postseptal extension. No drainable abscess or fluid collection. No evidence of subperiosteal abscess. Ethmoid air cells are well aerated. Normal intraconal fat. Induration extends into the LEFT facial soft tissues. Paranasal sinuses are well aerated. CT/[place] w con [id number] IMPRESSION: 1. Preseptal LEFT periorbital cellulitis. No evidence of postseptal extension. Normal intraconal fat. 2. No evidence of drainable abscess or fluid collection. 3. Paranasal sinuses are well aerated.
[2024-11-13 09:09] LABS: Hematocrit 36.9 % (36-47); Hemoglobin 12.30 g/dL (11.27-16.99); Mean Corpuscular HGB Conc 33.3 g/dL (30-55); Mean Corpuscular Hemoglobin 33.3 pg (27-33); Mean Corpuscular Volume 100.0 fl (85-98); Nucleated Red Blood Cells % 0 %; Platelet Count 253 10^3/cmm (157-399); Red Blood Count 3.69 10^6/uL (3.85-5.65); White Blood Count 10.34 10^3/uL (3.29-11.43)
[2024-11-13 09:31] LABS: Alanine Aminotransferase 17 U/L (0-33); Albumin Level 4.0 g/dL (3.5-5.2); Alkaline Phosphatase 95 U/L (35-105); Anion Gap 16.9 (5-19); Aspartate Amino Transferase 21 U/L (0-32); Blood Urea Nitrogen 13 mg/dL (6-20); Calcium 9.5 mg/dL (8.5-10.5); Carbon Dioxide 26 mmol/L (22-29); Chloride 96 mmol/L (98-107); Creatinine Clr Calc Pharmacy 82.4256; Globulin 4.0 g/dL (1.3-4.6); Glucose 119 mg/dL (65-115); Osmolality Calculated 279 mOsm/kg (285-295); Potassium 4.9 mmol/L (3.5-5.1); Sodium 134 mmol/L (136-145); Total Protein 8.0 g/dL (6.6-8.7)
[2024-11-13] MEDS: iohexol 350 mg/mL 500 mL Btl (per mL) IV (09:46)
[2024-11-13 10:27] VITALS: BP 170/92; PULSE 82; O2SAT 100
== END 2024-11-13 10:29 | disposition home or self-care (01) ==
PROVIDERS: Emergency Provider Family Medicine; PCP Family Medicine
DX: L03.213 Periorbital cellulitis (principal); Z79.82 Long term (current) use of aspirin; Z87.891 Personal history of nicotine dependence; E11.40 Type 2 diabetes mellitus with diabetic neuropathy, unspecified
CPT/HCPCS: 36415; 70481; 80053; 85025; 99285

== ENCOUNTER 2024-11-17 17:39 | Emergency (ER) | payer OTHER, SELFPAY ==
--- OUTSIDE RECORDS SUMMARY | 2024-11-11 05:15 | XMS_ITS ---
Author Organization [facility] Address [address] [place] [address] Care Team Providers Care Division Commander Name Role Phone Kunal Leigh MD Primary Care Provider Frederick Briones Unavailable [phone] Allergies Allergen (clinical drug ingredient) Drug/Non Drug [...] 11/11/2024 Encounters Encounter Location Date Provider Diagnosis [facility] [address] [place] [address] 11/11/2024 Frederick Ocasio PVD (peripheral vascular disease) [...] Details Provider Name:Ventura lerma, 11/24/2024 02:00:00 PM, [address] [place] [address] ANUJA [address]UND[address], [place], [address], Provider Name:Frederick Ocasio , 11/24/2024 02:30:00 PM, [address] [place] [address] ANUJA [address]UND[address], [place], [address], History and Physical Notes * HPI (History [...] * Elizabeth MIRANDAOB:[birth year] (54 yo F)Acc No.[id number]:11/11/2024 Progress Notes Patient: Fatoumata Humphries Provider: Fahad Ocasio MD :1970 A ge:54 Y S ex:Female Date:11/11/2024 Address:[address] [address], [facility] Pcp:Kunal Leigh MD Check In:10:15 AM CSTCheck O ut:11:45 AM 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 [...] MD Date: 0 11/11/2024 Generated for Jose duque/Erika/Susanne on: 0 11/17/2024 05:44 PM CDT
--- OUTSIDE RECORDS SUMMARY | 2024-11-17 17:44 | XMS_ITS | Clinical Summary ---
Author Organization [facility] Address [address] [place] [address] Phone Care Team Providers Care Car Supervisor Name Role Phone Unavailable Primary Care Provider [...] 2) 2018 INFLUENZA VACCINE (#1) 2024 Insurance [facility]
[2024-11-17 17:45] VITALS: BP 185/93; PULSE 82; RESP 17; TEMP 36.7; O2SAT 100; BMI 27.6
--- OUTSIDE RECORDS SUMMARY | 2024-11-17 17:45 | XMS_ITS | Patient Health Record ---
Author Organization [facility] Address [address] [facility] [place] [address] Care Team Providers Care Senior Construction Estimator Name Role Phone Kunal Leigh MD Primary Care Provider Frederick Briones Unavailable [phone] Charlie Flores Unavailable [phone] Allergies Allergen (clinical drug ingredient) Drug/Non Drug Allergy documented on EMR Reaction Allergy Type Onset Date Status Alpha-Gal Unknown Drug Allergy Active codeine Codeine nausea and vomiting Drug Allergy Active Results Component Value Reference Range Notes US Ankle Brachial Pressure I [id number] (Not yet reviewed by provider) Interpretation: Performing Lab: Notes/Report: This report was dictated at the [facility] FINAL REPORT Read This report was dict ated at the [facility] US Ankle Brachial Pressure I ndex-[id number] (Not yet reviewed by provider) Interpretation: Performing Lab: Notes/Report: voh=[id number]=iSite [id number]&org=iSite Reason For Referral Reason eval and treat Diagnosis 1 Pain in left foot (M 79.672) Diagnosis 2 Pain in right foot ( M79.671) Referring Provider First Name Domo Referring Provider Last Name Marija Referring Provider Speciality Pain Medic ine Referred Organization [facility] Home Referred Provider Charlie Flores Referred Address [address],[facility],[place],[address],[place] Referred Provider Specialty Intervention al Pain Medicine General Notes Maranda Miller 09:44:57 AM >Called and left mess to return call to schedule Issac peralesHuma 08/10/2024 10:30:48 AM >Mailed nppw Referral Priority Routine Reason PVD - OZH CTA AFRO : occluded right SFA and right popliteal, Severe left peroneal and SARI disease Diagnosis 1 PVD (peripheral vasc ular disease) (I73.9) Referring Provider First Name Fariha Referring Provider Last Name Hilario Referring Provider Speciality Nurse Shanell meyer [facility] Referred Provider Frederick Ocasio Referred Address [address] [place] [address] [address],[address], Referred Provider Specialty Vascular [facility] General Notes Samara Reddy, RN 05/2024 09:31:13 AM CDT > Please schedule with Barry Stuart Lisa, GLENROY 11/04/2024 10:08:49 AM CDT > images in [email or web address] 11/04/2024 02:34:48 PM CDT > Appointment scheduled [...] Status Risk Notes Problem Chronic pain syndrome (662096010) Chronic pain syndrome (G89.4) Active confirmed Problem Peripheral vascular disease (601174881) PVD (peripheral vascular disease) (I73.9) Active confirmed Problem Diabetic peripheral neuropathy (260513005) Diabetic peripheral neuropathy (E11.42) Active confirmed Problem Abnormal gait (05583403) Abnormality of gait and mobility (R26.9) Active confirmed Problem Chronic critical ischemia of extremity (I70.229) Active confirmed Vital Signs Heart Rate 65 /min 11/11/2024 Temperature 97.0 degrees Fahrenheit 11/11/2024 Oximetry 99 % 11/11/2024 Blood pressure diastolic 88 mm Hg 11/11/2024 Weight-kg 71.5 kg 11/11/2024 Blood pressure systolic 138 mm Hg 11/11/2024 Weight 157.63 lbs 11/11/2024 Encounters Encounter Location Date Provider Diagnosis [facility] [place] [address] [place] [id number] 10/21/2024 Charlie Flores Chronic pain syndrome G89.4 ; Diabetic peripheral neuropathy E11.42 ; Abnormality of gait and mobility R26.9 and manager long term care (current) use of opiate analgesic Z79.891 [facility] [address] [place] [address] [address] 11/11/2024 Frederick Ocasio PVD (peripheral vascular disease) [...] option. She met with a sales 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 raw fibers from [employer] earlier today, and we will continue this [...] gait and mobility (ICD-10 - R26.9) 10/21/2024 senior living (current) use of opiate analgesic (ICD-10 - Z79.891) 10/21/2024 Other I, Chelsea Mei, am scribing for Dr. Charlie Flores. I, Dr. Charlie Flores, personally performed the services described in this documentation, as scribed by Chelsea Mei, and it is both accurate and complete. Plan Of Treatment Pending Test Test Name Order Date US Ankle Brachial Pressure Index-[id number] 11/11/2024 US Ankle Brachial Pressure Index-[id number] 0 11/11/2024 Next Appt Details Provider Name:Ventura lerma, 11/24/2024 02:00:00 PM, [address] [place] [address] [address], [place], [address], Provider Name:Frederick Ocasio , 11/24/2024 02:30:00 PM, [address] [place] [address] [address], [place], [address], Insurance Providers Payer Name Payer Address Payer Phone Subscriber Number Group Number Insured Name Patient Relationship to Insured Coverage Start Date Coverage End Date [employer] [address] [place] [address] [id number] Fatoumata Souza Self - patient is the insured [facility] [address] [place] [phone] [id number] Fatoumata Souza Self - patient is the insured Medical (General) History Medical History History ICD Code High Blood Pressure Diabetes constipation Thyroid disease Surgical History Surgery Date(Month/Year) carpal tunnel release section hysterectomy Hospitalization History Reason Date(Month/Year) ER Visit - Incision check 11.08.24
--- NOTE | 2024-11-17 19:12 | W.ED.EYEPROB ---
HPI - Eye Problem General: Chief complaint: Eye Problems Stated complaint: L side facial swelling, redness, pain Time Seen by Provider: 11/17/24 18:01 Source: patient Mode of arrival: ambulatory Limitations: no limitations History of Present Illness: Patient is a 54-year-old female who presents the emergency department for evaluation. On 11/13 she was diagnosed with preseptal cellulitis of the left eye, was started on antibiotics. She arrives stating her symptoms have improved, but she was told from her friend that the symptoms that she currently has are similar to prior friend experience with shingles. Patient states she is simply here to make sure that this is not what it is. She is not reporting any blistering rash, headache or fevers. No visual changes, and she continually is denying pain with extraocular movements, retro-orbital pain, proptosis. Her vitals are unremarkable at this time. Onset (ago): day(s) Duration: improved Location: left eye Associated symptoms: Denies fever(s), headache(s), nausea, neck pain or vomiting Related Data Home Medications ?Medication ?Instructions ?Recorded ?Confirmed aspirin 81 mg tablet,delayed 81 mg PO DAILY 04/23/22 11/11/24 release (Adult Low Dose Aspirin) gabapentin 600 mg tablet 600 mg PO TID 04/23/22 11/11/24 tramadol 100 mg tablet 100 mg PO TID 04/23/22 11/11/24 cetirizine 10 mg tablet (Zyrtec) 10 mg PO DAILY PRN allergies 05/03/22 11/11/24 famotidine 20 mg tablet (Pepcid) 20 mg PO BID 05/03/22 11/11/24 rosuvastatin 40 mg tablet (Crestor) 40 mg PO QPM 05/03/22 11/11/24 epinephrine 0.3 mg/0.3 mL See Rx Instructions .Route .COMPLEX 10/08/24 11/11/24 injection, auto-injector Previous Rx's ?Medication ?Instructions ?Recorded prednisone 10 mg tablet See Rx Instructions PO .COMPLEX 05/21/23 PRN joint pain #30 tabs tirzepatide 15 mg/0.5 mL See Rx Instructions .Route 09/14/24 subcutaneous pen injector .COMPLEX #2 mL (Mounjaro) hydroxychloroquine 200 mg tablet 200 mg PO BID #180 tabs 10/06/24 Held on 10/14/24. Instructions: Resume on 11/16/24. hold until yousee ciprofloxacin HCl 500 mg tablet 500 mg PO BID #14 tabs 11/08/24 (Cipro) amoxicillin 875 mg-potassium 1 tab PO BID #14 tabs 11/13/24 clavulanate 125 mg tablet levothyroxine 112 mcg tablet See Rx Instructions .Route 11/16/24 .COMPLEX #30 tabs Allergies Allergy/AdvReac Type Severity Reaction Status Date / Time Alpha-Gal Allergy Severe ALGY-Anaphy Verified 11/11/24 06:56 (Alosyoviq-Ymdsj-4,3-Gala laxis Review of Systems General: Reports: 10 or more systems reviewed and unremarkable except in HPI and below Const: Reports: other (Continued symptoms of preseptal cellulitis of the left eye); Denies: fever(s), chills or fatigue Eyes: Reports: other (No proptosis, no pain with extraocular movements); Denies: change in vision ENMT: Denies: throat pain, ear or mastoid pain or nasal discharge Card: Denies: chest pain, palpitations, swelling of feet/ankles or lightheadedness Resp: Denies: dyspnea, productive cough or wheezing GI: Denies: abdominal pain, nausea, vomiting, diarrhea or constipation : Denies: flank pain, difficulty voiding, dysuria or urinary frequency Musc: Denies: neck pain, back pain or joint pain Skin/Breast: Denies: rash Neuro: Denies: headache(s), numbness in extremities or weakness in extremities PFSH ED PFSH: Medical History 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 Immunization counseling High risk medication use Polyarthralgia Positive DANILO (antinuclear antibody) 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 Diabetes Thyroid disease Joint pain Hypertension Neuropathy Carpal tunnel syndrome on both sides Surgical History History of hysterectomy History of delivery Family History Other Cancer Diabetes Hypertension Denies family history of Rheumatoid arthritis Lupus CAD (coronary artery disease) Hyperlipidemia Chronic kidney disease (CKD) Family history of premature coronary artery disease Lung disease Stroke Social History Smoking and tobacco/nicotine status: former use of tobacco/nicotine Alcohol intake: never Substance/Drug Use: never Physical Exam Const: COMMON NORMALS: no acute distress, patient oriented x3 and no limitations GENERAL APPEARANCE: cooperative, comfortable and well developed ORIENTATION/CONSCIOUSNESS: Yes awake, Yes oriented to person, Yes oriented to place and Yes oriented to time HENMT: COMMON NORMALS: normocephalic, atraumatic and hearing grossly normal bilaterally HEAD & SCALP: normocephalic and atraumatic Eye: OTHER: Erythema to left periorbital region, no proptosis or pain with extraocular movements. No dermatomal rash or blistering. Minimal conjunctival injection, crusting to the eyelids. Neck/C-Spine: COMMON NORMALS: full ROM, supple and no JVD Resp: COMMON NORMALS: normal respiratory effort, No retractions, No use of accessory muscles and clear to auscultation bilaterally AUSCULTATION: clear to auscultation bilaterally Cardio: COMMON NORMALS: no JVD, regular rate, regular rhythm, No clicks present (Cardio), No murmurs present (Cardio) and No rub (Cardio) RATE: regular rate RHYTHM: regular rhythm Extremity: COMMON NORMALS: normal to inspection, full ROM and capillary refill normal Neuro: COMMON NORMALS: patient oriented x3, moves all extremities, no focal motor deficits and no sensory deficits noted SENSORIUM/ORIENTATION: Yes oriented to person, Yes oriented to place and Yes oriented to time Skin: COMMON NORMALS: no rashes or lesions noted GENERAL SKIN EXAM: no rashes or lesions noted Course Vital Signs: Vital signs: Vital Signs Temperature 98.0 F 11/17/24 17:45 Pulse Rate 82 11/17/24 17:45 Respiratory Rate 17 11/17/24 17:45 Blood Pressure 185/93 11/17/24 17:45 Pulse Oximetry 100 11/17/24 17:45 Oxygen Delivery Me thod Room Air 11/17/24 17:45 MDM - Eye Problem Medical Decision Making Patient presenting with continued signs of left preseptal cellulitis, but by all accounts this is appearing to improve when reviewing her prior ED visit. She continues to be without any painful extraocular movements, visual changes, or proptosis to indicate any extension of infection. Her primary reason for presenting was to make sure she did not have shingles, I have very low suspicion that she is suffering from symptoms of shingles with no dermatomal rash, or visual changes or signs of uveitis. She is to continue her follow-ups with ophthalmology and continue her antibiotics outpatient, and she is instructed on signs and symptoms to return. No radiology studies performed this visit Discharge Plan Discharge Patient Disposition: Home Clinical Impression: Preseptal cellulitis of left eye Condition: Stable Prescriptions: No Action tramadol 100 mg tablet 100 mg PO TID gabapentin 600 mg tablet 600 mg PO TID aspirin [Adult Low Dose Aspirin] 81 mg tablet,delayed release (DR/EC) 81 mg PO DAILY prednisone 10 mg tablet See Rx Instructions PO .COMPLEX PRN (Reason: joint pain) Qty: 30 1RF Rx Instructions: take 1 or 2 tab daily for 3-7 days prn joint pain flare PO PRN; rosuvastatin [Crestor] 40 mg tablet 40 mg PO QPM famotidine [Pepcid] 20 mg tablet 20 mg PO BID cetirizine [Zyrtec] 10 mg tablet 10 mg PO DAILY PRN (Reason: allergies) hydroxychloroquine 200 mg tablet 200 mg PO BID Qty: 180 1RF Mounjaro 15 mg/0.5 mL pen injector See Rx Instructions .ROUTE .COMPLEX Qty: 2 2RF Dose Instruction: INJECT 15mg SUBCUTANEOUSLY EVERY 7 DAYS Rx Instructions: INJECT 15mg SUBCUTANEOUSLY EVERY 7 DAYS levothyroxine 112 mcg tablet See Rx Instructions .ROUTE .COMPLEX Qty: 30 5RF Dose Instruction: TAKE 1 TABLET BY MOUTH EVERY DAY Rx Instructions: TAKE 1 TABLET BY MOUTH EVERY DAY amoxicillin-pot clavulanate 875-125 mg tablet 1 tab PO BID Qty: 14 0RF epinephrine 0.3 mg/0.3 mL auto-injector See Rx Instructions .ROUTE .COMPLEX Rx Instructions: inject 0.3mg NEEDED FOR anaphylaxis. REPEAT if symptoms recur as you are going TO er ciprofloxacin HCl [Cipro] 500 mg tablet 500 mg PO BID Qty: 14 0RF Discharge Orders: Discharge ED (Routine); Ordered 11/17/24 Ordered By: Jens Luna Referrals: Kunal Leigh MD [Primary Care Provider, Family Practice] Patient Instructions: Patient Portal & Ilia Instructions Activity Restrictions/Additional Instructions: Preseptal Cellulitis Discharge Discharge Instructions for Preseptal Cellulitis You were treated for preseptal cellulitis, an infection of the eyelid and surrounding skin that does not involve deeper tissues of the eye. This condition is usually caused by bacteria such as Staphylococcus aureus, Streptococcus species, or Haemophilus influenzae, often following sinusitis, an insect bite, or a skin injury. You are improving, and there is no evidence of shingles (herpes zoster) at this time. Home Care: - Continue your prescribed antibiotics as directed. Most cases improve with oral antibiotics; amoxicillin-clavulanate is commonly used. - Apply warm compresses to the affected area to help with swelling and discomfort. - Elevate your head when resting to reduce swelling. - Monitor for worsening symptoms: If you develop increased redness, swelling, pain, fever, or any changes in vision, seek medical attention promptly. Follow-Up: - Schedule a follow-up appointment as advised to ensure the infection is resolving. - If symptoms worsen or do not improve after completing antibiotics, contact your healthcare provider. --- Information About Shingles (Herpes Zoster): Shingles is caused by reactivation of the varicella-zoster virus (the same virus that causes chickenpox). After a person has chickenpox, the virus stays dormant in nerve cells and can reactivate later in life, especially as people get older or if their immune system is weakened. Signs and Symptoms of Shingles: - Pain, burning, tingling, or itching in a specific area, often on one side of the body or face. This pain usually starts a few days before any rash appears. - Rash: A red, blistering rash that appears in a band or strip (called a dermatome), usually on one side and does not cross the midline. The rash starts as red bumps, then turns into fluid-filled blisters, which crust over in 7?10 days. - Other symptoms: Mild fever, headache, or feeling tired may occur before the rash. - No rash: Rarely, shingles can cause pain without a rash (zoster sine herpete), but this is uncommon. When to Seek Medical Attention: - If you develop a new rash, especially with pain, burning, or tingling. - If you notice any changes in your vision, eye pain, or blisters near your eye. - If you have persistent or severe pain, or if the area of redness and swelling spreads rapidly. Prevention: - A shingles vaccine is recommended for adults 50 years and older to reduce the risk of developing shingles and its complications. Summary: Your current symptoms and exam do not suggest shingles, as there is no rash and your pain has not changed in a way typical for shingles. Continue your current treatment for preseptal cellulitis and monitor for any new symptoms as described above. If you have any questions or concerns, please contact your healthcare provider. Print Language: Lithuanian Coding Level of Care Code ED Gathering Worker for Kaycee Vidal
== END 2024-11-17 19:17 | disposition home or self-care (01) ==
PROVIDERS: Emergency Provider Physician Assistant; PCP Family Medicine
DX: L03.213 Periorbital cellulitis (principal); Z79.82 Long term (current) use of aspirin; Z87.891 Personal history of nicotine dependence; E11.40 Type 2 diabetes mellitus with diabetic neuropathy, unspecified; I10 Essential (primary) hypertension
CPT/HCPCS: 99282

== ENCOUNTER 2024-12-05 14:05 | Emergency (ER) | payer OTHER, SELFPAY ==
--- OUTSIDE RECORDS SUMMARY | 2024-11-24 09:00 | XMS_ITS ---
Author Organization [facility] Address [address] [place] [address] Care Team Providers Care Plodding Operator Name Role Phone Reese MAK, Kunal Primary Care Provider Neal Dukes JR Unavailable [phone] Ventura Douglas [phone] REASON FOR VISIT F/U WITH VAIN MAPPING Encounters Encounter Location Date Provider Diagnosis [facility] [address] [place] [address] 11/24/2024 Ventura Douglas Plan Of Treatment Next Appt Details Provider Name:Lesley fung, 12/09/2024 01:15:00 PM, [address] [place] [address], [facility], [place], [address], Provider Name:Raisa longo, 12/09/2024 03:00:00 PM, [address] [place] [address] [address], [place], [address], Progress Notes * Elizabeth MIRANDAOB:[birth year] (54 yo F)Acc No.[id number]:11/24/2024 Patient: Fatoumata Humphries Provider: Aura Douglas MD :1970 A ge:54 Y S ex:Female Date:11/24/2024 Address:[address] [place] [address] [address], [facility] Pcp:Kunal Leigh MD Subjective: * Chief Complaints: * F /U WITH VAIN MAPPING * Electronic signature of Ventura Douglas MD on 12/05/2024 at 02:10 PM CDT Sign off status: Pending * Provider: Aura Douglas MD Date: 0 11/24/2024 Generated for Jose duque/Erika/Susanne on: 1 02:10 PM CDT
--- OUTSIDE RECORDS SUMMARY | 2024-11-27 03:00 | XMS_ITS ---
Author Organization [facility] Address [address] [place] [address] Care Team Providers Care Quality Improvement Engineer Name Role Phone Reese MAK, Kunal Primary Care Provider Neal Dukes JR Unavailable [phone] Frederick Ocasio [phone] REASON FOR VISIT OP 0600 - right femoral to popliteal artery bypass Encounters Encounter Location Date Provider Diagnosis [facility] [address] [place] [address] 11/27/2024 Frederick Ocasio Plan Of Treatment Next Appt Details Provider Name:Lesley fung, 12/09/2024 01:15:00 PM, [address] [place] [address], [facility], [place], [address], Provider Name:Raisa longo, 12/09/2024 03:00:00 PM, [address] [place] [address] [address], [place], [address], Progress Notes * Elizabeth MIRANDAOB:[birth year] (54 yo F)Acc No.[id number]:11/27/2024 Patient: Fatoumata Humphries Provider: Fahad Ocasio MD :1970 A ge:54 Y S ex:Female Date:11/27/2024 Address:[address] [place] [address] [address], [place], [place]-[id number] Pcp:Kunal Leigh MD * Electronic signature of Vero or MD Amarjit on 12/05/2024 at 02:10 PM CDT Sign off status: Pending * Provider: Fahad Ocasio MD Date: 0 11/27/2024 Generated for Jose duque/Erika/Susanne on: 1 02:10 PM CDT
--- OUTSIDE RECORDS SUMMARY | 2024-12-05 14:10 | XMS_ITS | Clinical Summary ---
Author Organization [facility] Address [address] [place] [address] Phone Care Team Providers Care Hotbed Operator Name Role Phone Unavailable Primary Care Provider [...] 2) 2018 INFLUENZA VACCINE (#1) 2024 Insurance [facility]
[2024-12-05 14:11] VITALS: BP 152/76; PULSE 91; RESP 18; TEMP 36.8; O2SAT 99
--- OUTSIDE RECORDS SUMMARY | 2024-12-05 14:11 | XMS_ITS | Data Portability ---
Author Organization IGNACIO [facility] [facility], .[place], [facility] Address [address] [facility] [address] [place] [address] Care Team Providers Care President [employer] Name Role Phone ROLA LEIGH Primary Care Provider ARNULFO QUEZADA Referring Provider Assessment Encounter Date Assessment Date Assessment LastModified by Organization Details LastModified Time 09/21/2024 09/21/2024 Stop Monjauro at least 1 week prior to the procedure Stop Aspirin at least 5 days prior to the procedure. Not available 09/21/2024 14:28:05 09/21/2024 09/21/2024 her mammogram is scheduled for next month her colonsocopy consultation is today. Not available 09/21/2024 09:58:04 10/27/2024 10/27/2024 pain contract reviewed. she will be seen by podiatry in 20 mins so i will not remove her bandaging etc. her picc line is going really well. she has the in home care and there is no sign of infection. Not available 10/27/2024 09:58:56 Plan of Treatment Reminders Order Date Submit Date Provider Last Modified By Organization Details Last Modified Time Details Appointments OFFICE VISIT EUREKA 2024 09:15A M Rola Leigh MD Not available Not available Not available OFFICE VISIT EUREKA 2025 07:00A M Rola Leigh MD Not available Not available Not available Lab microa lbumin /creat inine, mass ratio, urine 2024 025 [facility], [address], [place], [address], 09/18/2024 07:35:34 hemogl obin A1C/he moglob in total, QN, blood 2024 025 [facility], [address], [address], [place], [address], 09/17/2024 09:38:04 CMP, serum or plasma 2024 025 [facility], [address], [address], [place], [address], 09/17/2024 10:03:43 CBC 2024 025 [facility], [address], [address], [place], [address], 09/17/2024 09:38:11 thyrot ropin, QN, serum or plasma 2024 025 [facility], [address], [address], [place], [address], 09/17/2024 10:13:43 lipid panel, blood 2024 025 [facility], [address], [address], [place], [address], 09/17/2024 10:03:45 Referral dermat ologis t referr al [address] [facility], [address], [place], [address], 09/30/2024 13:04:52 Procedures colono scopy proced ure (PROC) 2024 025 [facility], [address] [place], [address], 10/15/2024 10:47:56 Surgeries None record ed. Imaging None record ed. Medication Orders tramad ol 100 mg tablet [email or web address] [place] [address], [facility] [place], [address], 10/27/2024 09:56:47 Mirala x 17 gram/d ose oral powder [address] [facility], [facility] [place], [address], 11/23/2024 17:53:17 Patient TargetsNo targets recorded. 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 [facility] [address], [place], [address], 03/16/2024 12:08:05 03/16/1903/16/2024 CBC RBC 4.49 x10 3.50-5 .50 Not Available [facility] [place] [facility] [address] [facility] [address], [place], [address], 03/16/2024 12:08:05 03/16/19 25 03/16/2024 CBC HGB 13.8 g/dL 12.0-1 6.0 Not Available [facility] [place] [facility] [address] [facility], [place], [address], 03/16/2024 12:08:05 03/16/1903/16/2024 CBC HCT 40.6 % 37.0-4 7.0 Not Available [facility] [facility] [address] [facility] [facility] [address], [place], [address], 03/16/2024 12:08:05 03/16/1903/16/2024 CBC MCV 90.4 fL 80.0-9 9.9 Not Available [facility] [facility] [address] [facility] [address], [place], [address], 03/16/2024 12:08:05 03/16/1903/16/2024 CBC MCH 30.8 pg 27.0-3 2.0 Not Available [facility] [facility] [address] [facility], [place], [address], 03/16/2024 12:08:05 03/16/1903/16/2024 CBC MCHC 34.0 g/dL 32.0-3 6.0 Not Available [facility] [facility] [address] [facility] [address], [place], [address], 03/16/2024 12:08:05 03/16/1903/16/2024 CBC RDW 14.2 % 11.5-1 4.5 Not Available [facility] [place] [facility] [address] [facility] [address], [place], [address], 03/16/2024 12:08:05 03/16/1903/16/2024 CBC plt 294.0 x10 140.0- 451.0 Not Available [facility] [place] [facility] [address] [facility] [address], [place], [address], 03/16/2024 12:08:05 03/16/1903/16/2024 CBC lymphocytes % 41.5 % 20.0-5 0.0 Not Available [place] [facility] [facility] [address] [facility] [address], [place], [address], 03/16/2024 12:08:05 03/16/1903/16/2024 CBC granulcytes % 49.0 % 30.0-7 0.0 Not Available [facility] [address] [facility] [address], [place], [address], 03/16/2024 12:08:05 03/16/19 25 03/16/2024 CBC monocytes % 5.9 % 2.0-16 .0 Not Available [place] [facility] [facility] [address] [facility] [address], [place], [address], 03/16/2024 12:08:05 03/16/1903/16/2024 CBC granulcytes# 3.0 x10 Not Shawanda [facility]able [facility] [address] [facility] [address], [place], [address], 03/16/2024 12:08:05 03/16/1903/16/2024 CBC lymphocytes # 2.5 x10 Not Available [facility] [address] [facility] [address], [place], [address], 03/16/2024 12:08:05 03/16/1903/16/2024 CBC monocytes # 0.4 x10 Not Avai lable [facility] [address] [facility] [address], [place], [address], 03/16/2024 12:08:05 03/16/1903/16/2024 HBA1C hemaglobin A1C 5.8 4.2-6. 5 Not Available [facility] [address] [address], [place], [address], 03/16/2024 12:13:57 03/16/1903/16/2024 CMP (FEMA LE) glucose 81.0 mg/dL 60.0-9 9.0 Not Available [facility] [address] [facility], [place], [address], 03/16/2024 12:48:17 03/16/1903/16/2024 CMP (FEMA LE) BUN (blood urea nitrogen) 12.0 mg/dL 10.0-2 6.0 Not Available [facility] [address] [facility] [address], [place], [address], 03/16/2024 12:48:17 03/16/1903/16/2024 CMP (FEMA LE) creatinine (serum) 1.1 mg/dL 0.4-1. 5 Not Available [facility] [address] [address], [place], [address], 03/16/2024 12:48:17 03/16/1903/16/2024 CMP (FEMA LE) BUN/creatini ne ratio 10.91 ratio Not Available [facility] [address] [facility], [place], [address], 03/16/2024 12:48:17 03/16/1903/16/2024 CMP (FEMA LE) eGFR calculated 54.8 Not Available [facility] [address] [facility] [address], [place], [address], 03/16/2024 12:48:17 03/16/1903/16/2024 CMP (FEMA LE) total protein 9.2 g/dL 6.0-8. 5 high Not Available [facility] [address] [facility] [address], [place], [address], 03/16/2024 12:48:17 03/16/1903/16/2024 CMP (FEMA LE) total bilirubin 0.4 mg/dL 0.2-1. 3 Not Available [place] [facility] [place] [facility] [address] [facility] [address], [place], [address], 03/16/2024 12:48:17 03/16/19 25 03/16/2024 CMP (FEMA LE) albumin 4.9 g/dL 3.5-5. 5 Not Available [facility] [place] [facility] [address] [facility], [place], [address], 03/16/2024 12:48:17 03/16/19 25 03/16/2024 CMP (FEMA LE) globulin 4.[address] [facility] [address] [facility] [address], [place], [address], 03/16/2024 12:48:17 03/16/19 25 03/16/2024 CMP (FEMA LE) AST (SGOT) 30.0 U/L 0.0-46 .0 Not Available [facility] [address] [facility], [place], [address], 03/16/2024 12:48:17 03/16/19 25 03/16/2024 CMP (FEMA LE) altv (SGPT) 24.0 U/L 13.0-6 9.0 normal Not Available [facility] [address] [facility] [address], [place], [address], 03/16/2024 12:48:17 03/16/1903/16/2024 CMP (FEMA LE) A/G ratio 1.1 ratio Not Available [facility] [address] [facility], [place], [address], 03/16/2024 12:48:17 03/16/1903/16/2024 CMP (FEMA LE) ALP phos 97.0 U/L 30.0-1 40.0 normal Not Available [facility] [address] [facility] [address], [place], [address], 03/16/2024 12:48:17 03/16/1903/16/2024 CMP (FEMA LE) calcium 9.9 mg/dL 8.4-10 .5 Not Available [facility] [place] [facility] [address] [facility], [place], [address], 03/16/2024 12:48:17 03/16/1903/16/2024 CMP (FEMA LE) sodium 140.0 mmol/ L 136.0- 145.0 Not Available [facility] [place] [facility] [address] [facility] [address], [place], [address], 03/16/2024 12:48:17 03/16/1903/16/2024 CMP (FEMA LE) potassium 4.4 mmol/ L 3.5-5. 1 Not Available [facility] [place] [facility] [address] [facility] [address], [place], [address], 03/16/2024 12:48:17 03/16/1903/16/2024 CMP (FEMA LE) chloride 101.0 mmol/ L 98.0-1 10.0 normal Not Available [facility] [place] [facility] [address] [facility] [address], [place], [address], 03/16/2024 12:48:17 03/16/1903/16/2024 CMP (FEMA LE) C02 30.0 mmol/ L 22.0-3 1.0 Not Available [facility] [facility] [address] [facility] [address], [place], [address], 03/16/2024 12:48:17 03/16/1903/16/2024 CMP (FEMA LE) anion gap 9.0 calc Not Available [facility] [address] [facility] [address], [place], [address], 03/16/2024 12:48:17 03/16/192025 CMP (FEMA LE) osmolality 288.1 calc Not Available [facility] [address] [facility], [place], [address], 03/16/2024 12:48:17 03/16/19 25 03/16/2024 LIPID PROFI LE (FEMA LE) cholesterol 148.0 mg/dL 0.0-20 0.0 Not Available [facility] [address] [facility], [place], [address], 03/16/2024 12:48:20 03/16/19 25 03/16/2024 LIPID PROFI LE (FEMA LE) trig 92.0 mg/dL 0.0-15 0.0 Not Available [facility] [address] [facility], [place], [address], 03/16/2024 12:48:20 03/16/19 25 03/16/2024 LIPID PROFI LE (FEMA LE) HDL - direct 69.0 mg/dL >40.0 Not Available [facility] [address] [facility] [address], [place], [address], 03/16/2024 12:48:20 03/16/19 25 03/16/2024 LIPID PROFI LE (FEMA LE) VLDL - direct 18.4 mg/dL Not Available [facility] [address] [facility], [place], [address], 03/16/2024 12:48:20 03/16/19 25 03/16/2024 LIPID PROFI LE (FEMA LE) LDL - direct 60.6 mg/dL 0.0-13 0.0 Not Available [facility] [address] [facility], [place], [address], 03/16/2024 12:48:20 03/16/19 25 03/16/2024 TSH TSH 1.67 uIU/m L 0.49-3 .82 Not Available [facility] [address] [address], [place], [address], 03/16/2024 12:54:08 03/16/1903/19/2024 ALPHA GAL PANEL beef (F27) IgE 1.21 kU/L high Not Available [address] [address] [place], [address], 03/19/2024 01:29:34 03/16/19 25 03/19/2024 ALPHA GAL PANEL class 2 Not Available [address] [address] [place], [address], 03/19/2024 01:29:34 03/16/19 25 03/19/2024 ALPHA GAL PANEL terrell (F88) IgE 0.44 kU/L high Not Available [address] [address] [place], [address], 03/19/2024 01:29:34 03/16/19 25 03/19/2024 ALPHA GAL PANEL class 1 Not Available [address] [address] [place], [address], 03/19/2024 01:29:34 03/16/1903/19/2024 ALPHA GAL PANEL pork (F26) IgE 0.45 kU/L high Not Available [address] [address] [place], [address], 03/19/2024 01:29:34 03/16/19 25 03/19/2024 ALPHA GAL PANEL class 1 Not Available [address] [place], [address], 03/19/2024 01:29:34 03/16/19 25 03/19/2024 ALPHA GAL PANEL galactose alpha 1,3 galactose IgE 1.65 kU/L <0.10 high Resul ts above 0.1 kU/L indic ate an aller gen-s pecif ic IgE sensi tizat ion to galac tose- a-1,3 -gala ctose , and such patie nts are at risk for delay ed aller gic react ions follo wing beef, pork, or terrell consu mptio n. Circu latin g IgE antib odies may remai n undet ectab le despi te a convi ncing clini romie histo ry becau se these antib odies may be direc liza towar ds aller gens revea led or alter ed durin g indus trial proce ssing , cooki ng, or diges tion and there fore do not exist in the origi nal food for which the patie nt is teste d. Somet imes indiv idual s diagn osed with chron ic urtic aria may devel op IgE antib odies direc liza again st human thyro globu krysta. Such antib odies may cross -reac t with the bovin e thyro globu krysta used in Immun oCAP( R) Aller gen o215, alpha -Gal, leadi ng to a false -posi tive test resul t. A defin itive diagn osis shoul d be based on the evalu ation of both clini romie and labor atory findi ngs and not on any singl e diagn ostic metho d. Addit ional infor yuri miguel can be found at http: //www .phad ia.co m Not Available [facility] [address] [place], [address], 03/19/2024 01:29:34 03/16/19 25 03/19/2024 INTER PRETA TION interpretati on Speci fic Level of Aller gen IGE Class kU/L Speci fic IGE Antib quiana ----- ----- ---- ----- ----- ----- ---- 0 <0.10 Absen t/Und etect able 0/1 0.10- 0.34 Very Low Level 1 0.35- 0.69 Low Level 2 0.70- 3.49 Moder ate Level 3 3.50- 17.4 High Level 4 17.5- 49.9 Very High Level 5 50-10 0 Very High Level 6 >100 Very High Level The clini romie relev ance of aller gen resul ts of 0.10- 0.34 kU/L are undet ermin ed and inten ded for speci alist use. Aller gens denot ed with a inclu de resul ts using one or more martha te speci fic reage nts. In those cases , the test was devel oped and its martha tical perfo rmanc e luca cteri stics have been deter mined by [facility]. It has not been clear ed or appro milena by the U.S. Food and Drug Admin istra tion. This assay has been valid ated pursu ant to the CLIA regul ation s and is used for clini romie purpo ses. Not Available [facility] [address] [address] [place], [address], 03/19/2024 01:29:36 03/16/19 25 03/19/2024 ALBUM IN, RANDO M URINE W/CRE ATINI NE creatinine, random urine 46 mg/dL 20-275 normal Not Available [facility] [employer] [address] [address] [place], [address], 03/19/2024 01:29:36 03/16/19 25 03/19/2024 ALBUM IN, RANDO M URINE W/CRE ATINI NE albumin, urine 4.0 mg/dL see note: normal Refer ence Range : Refer ence Range Not estab lishe d Not Available [facility] [address] [address] [place], [address], 03/19/2024 01:29:36 03/16/1903/19/2024 ALBUM IN, RANDO M URINE W/CRE ATINI NE albumin/crea tinine ratio, random urine 87 mg/g_ creat <30 high The ADA defin es abnor malit ies in album in excre tion as follo ws: Album inuri a Categ ory Resul t (mg/g creat inine ) Christen l to Mildl y incre ased <30 Moder ately incre ased 30-29 9 Sever sierra incre ased > OR = 300 The ADA recom mends that at least two of three speci mens colle cted withi n a 3-6 month perio d be abnor mal befor e consi radha g a patie nt to be withi n a diagn ostic categ ory. Not Available [facility] [address] [place], [address], 03/19/2024 01:29:36 09/18/1909/17/2024 HBA1C hemaglobin A1C 5.4 4.2-6. 5 Not Available [facility] [place] [facility] [address], [place], [address], 09/17/2024 09:38:04 09/18/1909/17/2024 CBC WBC 5.7 x10 4.0-10 .5 Not Available [facility] [facility] [address], [place], [address], 09/17/2024 09:38:11 09/18/19 25 09/17/2024 CBC RBC 3.89 x10 3.50-5 .50 Not Available [facility] [facility] [address], [place], [address], 09/17/2024 09:38:11 09/18/19 25 09/17/2024 CBC HGB 12.5 g/dL 12.0-1 6.0 Not Available [facility] [facility] [address], [place], [address], 09/17/2024 09:38:11 09/18/19 25 09/17/2024 CBC HCT 37.7 % 37.0-4 7.0 Not Available [facility] [place] [facility] [address], [place], [address], 09/17/2024 09:38:11 09/18/19 25 09/17/2024 CBC MCV 97.0 fL 80.0-9 9.9 Not Available [facility] [facility] [address], [place], [address], 09/17/2024 09:38:11 09/18/1909/17/2024 CBC MCH 32.2 pg 27.0-3 2.0 high Not Available [facility] [place] [facility] [address] [facility], [place], [address], 09/17/2024 09:38:11 09/18/19 25 09/17/2024 CBC MCHC 33.2 g/dL 32.0-3 6.0 Not Available [facility] [facility] [address] [facility], [place], [address], 09/17/2024 09:38:11 09/18/1909/17/2024 CBC RDW 12.9 % 11.5-1 4.5 Not Available [facility] [place] [facility] [address] [facility] [address] [facility], [place], [address], 09/17/2024 09:38:11 09/18/19 25 09/17/2024 CBC plt 267.9 x10 140.0- 451.0 Not Available [facility] [place] [facility] [address] [facility] [address] [facility], [place], [address], 09/17/2024 09:38:11 09/18/1909/17/2024 CBC lymphocytes % 37.4 % 20.0-5 0.0 Not Available [facility] [facility] [address] [facility] [address] [facility], [place], [address], 09/17/2024 09:38:11 09/18/1909/17/2024 CBC granulcytes % 54.2 % 30.0-7 0.0 Not Available [facility] [facility] [address] [facility] [address] [facility], [place], [address], 09/17/2024 09:38:11 09/18/19 25 09/17/2024 CBC monocytes % 7.0 % 2.0-16 .0 Not Available [facility] [address] [facility] [facility], [place], [address], 09/17/2024 09:38:11 09/18/1909/17/2024 CBC granulcytes# 3.1 x10 Not Shawanda ilable [facility] [address] [facility] [address], [place], [address], 09/17/2024 09:38:11 09/18/1909/17/2024 CBC lymphocytes # 2.1 x10 Not Available [facility] [address] [facility], [place], [address], 09/17/2024 09:38:11 09/18/1909/17/2024 CBC monocytes # 0.4 x10 Not Avai lable [facility] [address] [address], [place], [address], 09/17/2024 09:38:11 09/18/1909/17/2024 CMP (FEMA LE) glucose 84.0 mg/dL 60.0-9 9.0 Not Available [facility] [address] [address], [place], [address], 09/17/2024 10:03:43 09/18/19 25 09/17/2024 CMP (FEMA LE) BUN (blood urea nitrogen) 20.0 mg/dL 10.0-2 6.0 Not Available [facility] [address] [address], [place], [address], 09/17/2024 10:03:43 09/18/19 25 09/17/2024 CMP (FEMA LE) creatinine (serum) 1.0 mg/dL 0.4-1. 5 Not Available [facility] [address] [facility] [address], [place], [address], 09/17/2024 10:03:43 09/18/19 25 09/17/2024 CMP (FEMA LE) BUN/creatini ne ratio 20.00 ratio Not Available [facility] [address] [facility] Gabriela [facility], [place], [address], 09/17/2024 10:03:43 09/18/19 25 09/17/2024 CMP (FEMA LE) eGFR calculated 61.0 Not Available [facility] [address] [facility], [place], [address], 09/17/2024 10:03:43 09/18/19 25 09/17/2024 CMP (FEMA LE) total protein 8.1 g/dL 6.0-8. 5 Not Available [facility] [address] [facility], [place], [address], 09/17/2024 10:03:43 09/18/19 25 09/17/2024 CMP (FEMA LE) total bilirubin 0.4 mg/dL 0.2-1. 3 Not Available [facility] [address] [facility], [place], [address], 09/17/2024 10:03:43 09/18/19 25 09/17/2024 CMP (FEMA LE) albumin 4.5 g/dL 3.5-5. 5 Not Available [facility] [address] [facility], [place], [address], 09/17/2024 10:03:43 09/18/19 25 09/17/2024 CMP (FEMA LE) globulin 3.[address] [facility] [address] [facility], [place], [address], 09/17/2024 10:03:43 09/18/19 25 09/17/2024 CMP (FEMA LE) AST (SGOT) 36.0 U/L 0.0-46 .0 Not Available [place] [facility] [address] [facility], [place], [address], 09/17/2024 10:03:43 09/18/19 25 09/17/2024 CMP (FEMA LE) altv (SGPT) 29.0 U/L 13.0-6 9.0 normal Not Available [facility] [facility] [address] [facility], [place], [address], 09/17/2024 10:03:43 09/18/19 25 09/17/2024 CMP (FEMA LE) A/G ratio 1.3 ratio Not Available [facility] [address]ri[address] [facility], [place], [address], 09/17/2024 10:03:43 09/18/19 25 09/17/2024 CMP (FEMA LE) ALP phos 81.0 U/L 30.0-1 40.0 normal Not Available [facility] [facility] [address]ri[address] [facility], [place], [address], 09/17/2024 10:03:43 09/18/19 25 09/17/2024 CMP (FEMA LE) calcium 9.7 mg/dL 8.4-10 .5 Not Available [facility] [address] [facility], [place], [address], 09/17/2024 10:03:43 09/18/19 25 09/17/2024 CMP (FEMA LE) sodium 140.0 mmol/ L 136.0- 145.0 Not Available [facility] [address] [facility], [place], [address], 09/17/2024 10:03:43 09/18/19 25 09/17/2024 CMP (FEMA LE) potassium 4.5 mmol/ L 3.5-5. 1 Not Available [facility] [address] Gabriela [facility], [place], [address], 09/17/2024 10:03:43 09/18/19 25 09/17/2024 CMP (FEMA LE) chloride 103.0 mmol/ L 98.0-1 10.0 normal Not Available [facility] [address] [facility], [place], [address], 09/17/2024 10:03:43 09/18/19 25 09/17/2024 CMP (FEMA LE) C02 27.0 mmol/ L 22.0-3 1.0 Not Available [facility] [address] [facility], [place], [address], 09/17/2024 10:03:43 09/18/19 25 09/17/2024 CMP (FEMA LE) anion gap 10.0 calc Not Available [place] [address] [facility], [place], [address], 09/17/2024 10:03:43 09/18/19 25 09/17/2024 CMP (FEMA LE) osmolality 290.9 calc Not Available [facility] [address] [facility], [place], [address], 09/17/2024 10:03:43 09/18/19 25 09/17/2024 LIPID PROFI LE (FEMA LE) cholesterol 129.0 mg/dL 0.0-20 0.0 Not Available [facility] [address] [facility] [facility], [place], [address], 09/17/2024 10:03:45 09/18/19 25 09/17/2024 LIPID PROFI LE (FEMA LE) trig 39.0 mg/dL 0.0-15 0.0 Not Available [facility] [address] [facility] [facility] [address], [place], [address], 09/17/2024 10:03:45 09/18/19 25 09/17/2024 LIPID PROFI LE (FEMA LE) HDL - direct 53.0 mg/dL >40.0 Not Available [facility] [address], [place], [address], 09/17/2024 10:03:45 09/18/19 25 09/17/2024 LIPID PROFI LE (FEMA LE) VLDL - direct 7.8 mg/dL Not Available [facility] [address], [place], [address], 09/17/2024 10:03:45 09/18/19 25 09/17/2024 LIPID PROFI LE (FEMA LE) LDL - direct 68.2 mg/dL 0.0-13 0.0 Not Available [facility] [address], [place], [address], 09/17/2024 10:03:45 09/18/19 25 09/17/2024 TSH TSH 1.10 uIU/m L 0.49-3 .82 Not Available [facility] [address], [place], [address], 09/17/2024 10:13:43 09/18/19 25 09/18/2024 ALBUM IN, RANDO M URINE W/CRE ATINI NE creatinine, random urine 105 mg/dL 20-275 normal Not Available [facility] [address] [place], [address], 09/18/2024 07:35:34 09/18/19 25 09/18/2024 ALBUM IN, RANDO M URINE W/CRE ATINI NE albumin, urine 3.5 mg/dL see note: normal Refer ence Range : Refer ence Range Not estab lishe d Not Available [facility] [address] [place], [address], 09/18/2024 07:35:34 0709/18/2024 ALBUM IN, RANDO M URINE W/CRE ATINI NE albumin/crea tinine ratio, random urine 33 mg/g_ creat <30 high The ADA defin es abnor malit ies in album in excre tion as follo ws: Album inuri a Categ ory Resul t (mg/g creat inine ) Christen l to Mildl y incre ased <30 Moder ately incre ased 30-29 9 Sever sierra incre ased > OR = 300 The ADA recom mends that at least two of three speci mens colle cted withi n a 3-6 month perio d be abnor mal befor e consi radha g a patie nt to be withi n a diagn ostic categ ory. Not Available [employer] [facility] [address] [place], [address], 09/18/2024 07:35:34 Result Notes None recorded. Problems Name Problem SNOMED Code Status Onset Date Resolution Date Notes Provider Name and Address Organization Details Recorded Time Other peripheral neuropathy Active 2021 diabetic neuropath y; 2 9:17AM by Lolita Ramirez LPN, Office Visit; Promoted; acuity set as *; Not Available [facility] 3 03:10:56 Hyperlipid emia 39702276 Active 2021 Hyperlipi demia; 2 9:17AM by Lolita Ramirez LPN, Office Visit; Promoted; acuity set as *; Not Available [facility] 3 03:10:56 Type 2 diabetes mellitus 66692173 Active 2022 LOLITA osorio [facility] 3 11:11:58 Essential hypertensi on 15399207 Active 2022 LOLITA osorio [facility] 3 11:20:24 Hypothyroi dism 72749198 Active 2022 Yun Connolly null, [facility] 3 13:20:05 Macular edema due to diabetes mellitus 626046265 Active 2024 LOLITASENA RAMIREZ [facility], Lisbeth 5 13:29:04 History of polyp of colon 301933111 [facility] [place] 5 13:58:57 Problem Notes None recorded. Procedures Surgical History Date Name Laterality Status Provider Name and Address Organization Details Recorded Time 11/28/19 25 femoral-poplitea l artery bypass graft completed [facility], DeloresLAngélica 12/01/2024 10:50:19 11/27/19 25 US scan of peripheral veins completed [facility], Lisbeth 11/27/2024 08:41:30 10/13/19 25 amputation completed [facility], DeloresLLaurelCLaurel 10/27/2024 09:40:18 10/10/19 25 operative procedure on foot completed [facility], DeloresLLaurelCLaurel 10/27/2024 09:40:41 09/02/19 20 Colonoscopy completed [facility], L.LLaurelCLaurel 01/14/2024 13:06:20 Hysterectomy completed [facility], L.LLaurelCLaurel 01/14/2024 13:05:39 Carpal tunnel surgery completed [facility], L.LLaurelCLaurel 01/14/2024 13:05:48 Imaging Results None recorded. Procedure Notes None recorded. Medical Equipment None Reported. Allergies Allergen ID Allergen Name Allergen Category Reaction Reaction Severity Criticality Documentation Date Start Date Code Code System Note Provider Name and Address Organization Details Recorded Time 99005 codeine sulfate medicatio n nausea mild low 09/29/2022 65863 RxNorm Kalee osorio [facility], Lisbeth 12:39:57 68928 Galactose -alpha-1, 3 galactose (substanc e) food,medi cation Not available Not available Not available 10/27/2024 33843 8006 SNBLANKA LaIGNACIO barriga [facility], Dominga 5 09:44:52 Medications Name Sig Start Date Stop Date Status Note LastModified by Organization Details LastModified Time levothyro xine 137 mcg tablet TAKE 1 TABLET BY MOUTH EVERY DAY FOR 90 DAYS 03/23 completed Not Available Not Available Not Available prednison e 10 mg tablet TAKE 1 TO 2 TABLETS BY MOUTH EVERY DAY FOR 3-7 DAYS NEEDED FOR joint pain flare active Not Available Not Available No t Available gabapenti n 600 mg tablet TAKE 1 TABLET BY MOUTH EVERY 8 HOURS FOR 28 DAYS active Not Available Not Available No t Available cetirizin e 10 mg tablet TAKE 1 TABLET BY MOUTH EVERY DAY active Not Available Not Available No t Available glipizide ER 10 mg tablet, extended release 24 hr TAKE 1 TABLET BY MOUTH EVERY MORNING with breakfas t don't go long stretche s without eating 02/22 completed Not Available Not Available Not Available metronida zole 500 mg tablet TAKE 1 TABLET BY MOUTH EVERY 8 HOURS FOR 21 DAYS active Not Available Not Available No t Available clopidogr el 75 mg tablet TAKE 1 TABLET BY MOUTH EVERY DAY active Not Available Not Available No t Available amlodipin e 5 mg tablet Take 1 tablet every day by oral route for 90 days. 12/19 completed Not Available Not Available Not Available ciproflox acin 500 mg tablet TAKE 1 TABLET BY MOUTH TWICE DAILY active Not Available Not Available No t Available sulfameth oxazole 800 mg-trimet hoprim 160 mg tablet TAKE 1 TABLET BY MOUTH TWICE DAILY FOR 10 DAYS 10/27 completed Not Available Not Available Not Available tramadol 50 mg tablet TAKE 1 TO 2 TABLETS BY MOUTH EVERY 4 TO 6 HOURS NEEDED FOR PAIN max of SIX PER DAY, hold within 4 hrs of planned sleep FOR 28 days active Not Available Not Available No t Available acyclovir 800 mg tablet TAKE 1 TABLET BY MOUTH five times a DAY active Not Available Not Available No t Available Synthroid 175 mcg tablet 09/21 completed Not Available Not Available Not Available ketorolac 0.5 % eye drops instill 1 drop INTO RIGHT EYE FOUR TIMES DAILY active Not Available Not Available No t Available terbinafi ne HCl 250 mg tablet TAKE 1 TABLET BY MOUTH EVERY DAY 10/27 completed Not Available Not Available Not Available famotidin e 20 mg tablet TAKE 1 TABLET BY MOUTH TWO TIMES DAILY active Not Available Not Available No t Available prednisol one acetate 1 % eye drops,cindy pension instill 1 drop INTO RIGHT EYE FOUR TIMES DAILY active Not Available Not Available No t Available hydrocort isone 2.5 % lotion APPLY TO THE AFFECTED AREA(S) TWICE DAILY 08/24 completed Not Available Not Available Not Available amlodipin e 10 mg tablet 09/21 completed Not Available Not Available Not Available erythromy renata 5 mg/gram (0.5 %) eye ointment apply 0.25 INCH TO LEFT upper lid THREE TIMES DAILY active Not Available Not Available No t Available metformin 1,000 mg tablet 09/21 completed Not Available Not Available Not Available levothyro xine 150 mcg tablet TAKE 1 TABLET BY MOUTH EVERY DAY 09/18 completed Not Available Not Available Not Available gabapenti n 300 mg capsule 09/21 completed Not Available Not Available Not Available mupirocin 2 % topical ointment APPLY TOPICALL Y TO AFFECTED AREA TWICE DAILY 10/27 completed Not Available Not Available Not Available hydroxych loroquine 200 mg tablet TAKE 1 TABLET BY MOUTH TWICE DAILY active Not Available Not Available No t Available epinephri ne 0.3 mg/0.3 mL injection , auto-inje ctor inject 0.3mg NEEDED FOR anaphyla xis. REPEAT if symptoms recur as you are going TO er active Not Available Not Available No t Available levothyro xine 112 mcg tablet TAKE 1 TABLET BY MOUTH EVERY DAY active Not Available Not Available No t Available amoxicill in 875 mg-potass ium clavulana te 125 mg tablet TAKE 1 TABLET BY MOUTH TWICE DAILY active Not Available Not Available No t Available acarbose 25 mg tablet TAKE 1 TABLET BY MOUTH THREE TIMES DAILY 08/24 completed Not Available Not Available Not Available valsartan 160 mg tablet 09/21 completed Not Available Not Available Not Available rosuvasta tin 40 mg tablet TAKE 1 TABLET AT BEDTIME active Not Available Not Available No t Available epinephri ne see note 09/05 completed prefille d auto inject pens if possible dispense 2 with 1 refill; Recorded 01/05/20 4:33PM by Lolita Ramirez LPN, Office Visit; Refill Quantity : 2; Applicat or; Not Available Not Available Not Available Aspirin EC daily active 0; Recorded 05/08/19 5:02PM by Frannie Quintana, RN, Office Visit; Not Available Not Available Not Available cefepime 2,000mg pushed IV q 12 hours active Not Available Not Available No t Available hydrocort isone two times daily 09/21 completed Recorded 05/08/19 5:02PM by Frannie Quintana, [place], Office Visit; Refill Quantity : 118; Millilit er; Not Available Not Available Not Available metformin two times daily 02/22 completed Recorded 08/23/19 8:05AM by Lolita Ramirez LPN, Historic al Summary; Mail Order Quantity : 180 Tablet; Mail Order Days: 90 Days; Refill Quantity : 0; Not Available Not Available Not Available Glipizide XL every morning 02/04 completed 436; Recorded 05/08/19 5:02PM by Frannie Quintana RN (Authori zed through Rola Leigh MD), Office Visit; Refill Quantity : 90; Tablet; Not Available Not Available Not Available ClearLax 17 gram/dose oral powder take 17 grams BY MOUTH EVERY DAY active Not Available Not Available No t Available amlodipin e besylate (bulk) daily 02/04 completed 436; Recorded 08/23/19 8:04AM by Lolita Ramirez LPN (Authori rosana through Rola Leigh MD), Annotati on/Adden dum; Mail Order Quantity : 90 Tablet; Mail Order Days: 90 Days; Refill Quantity : 90; Tablet; Not Available Not Available Not Available Jardiance 25 mg tablet 09/21 completed Not Available Not Available Not Available FreeStyle Ml 14 Day Sensor kit active Not Available Not Available Not Available tramadol 100 mg tablet Take 1 tablet 3 times a day by oral route for 90 days. 2024 active Not Available Not Available Not Avai lable FreeStyle Ml 2 [place] 09/17 completed Not Available Not Available Not Available Trulicity 4.5 mg/0.5 mL subcutane ous pen injector INJECT one pen UNDER SKIN every week 02/22 completed Not Available Not Available Not Available Paxlovid 300 mg (150 mg x 2)-100 mg tablets in a dose pack TK 2 NIRMATRE LVIR TS AND 1 RITONAVI R T TOGETHER PO BID FOR 5 DAYS BID FOR 5 DAYS 08/24 completed Not Available Not Available Not Available Ozempic 2 mg/dose (8 mg/3 mL) subcutane ous pen injector inject 2mg (0.75ml) SUBCUTAN EOUSLY EVERY 7 DAYS 03/23 completed Not Available Not Available Not Available Mounjaro 7.5 mg/0.5 mL subcutane ous pen injector inject 7.5mg every week FOR ONE MONTH THEN start 10mg DOSE 02/22 completed Not Available Not Available Not Available Mounjaro 15 mg/0.5 mL subcutane ous pen injector INJECT 15mg SUBCUTAN EOUSLY EVERY 7 DAYS active Not Available Not Available No t Available Mounjaro 10 mg/0.5 mL subcutane ous pen injector inject 10mg (0.5ml) SUBCUTAN EOUSLY EVERY 7 DAYS FOR FOUR weeks 02/22 completed Not Available Not Available Not Available Mounjaro 12.5 mg/0.5 mL subcutane ous pen injector 10/27 completed Not Available Not Available Not Available Vitals Date Recorded Body height Body mass index (BMI) Body weight Body temperature Heart rate Oxygen saturation Oxygen saturation in Arterial blood by Pulse oximetry Systolic And Diastolic Provider Name and Address Organization Details Last Updated DateTime 5 157.48 cm 27.4 kg/m2 63472.8 6 g 97.5 [degF] 63 /min 98 % 98 % 132/80 mm[Hg] Yun Connolly [facility] 5 08:11:27 Date Recorded Body height Body mass index (BMI) Body weight Respiratory rate Heart rate Oxygen saturation Oxygen saturation in Arterial blood by Pulse oximetry Body temperature Systolic And Diastolic Provider Name and Address Organization Details Last Updated DateTime 5 157.48 cm 26.2 kg/m2 69496.7 1 g 18 /min 67 /min 98 % 98 % 98.1 [degF] 148/70 mm[Hg] NARAYAN SOSA [facility] 5 13:57:16 Date Recorded Body height Body mass index (BMI) Body weight Body temperature Heart rate Oxygen saturation Oxygen saturation in Arterial blood by Pulse oximetry Systolic And Diastolic Provider Name and Address Organization Details Last Updated DateTime 5 157.48 cm 26.2 kg/m2 60131.7 1 g 97.3 [degF] 63 /min 97 % 97 % 138/84 mm[Hg] Yun [facility] 5 09:28:31 Date Recorded Body height Body mass index (BMI) Body weight Body temperature Heart rate Oxygen saturation Oxygen saturation in Arterial blood by Pulse oximetry Systolic And Diastolic Provider Name and Address Organization Details Last Updated DateTime 5 157.48 cm 29.3 kg/m2 40261.7 8 g 97.4 [degF] 74 /min 97 % 97 % 134/78 mm[Hg] [facility] 5 09:46:40 Social History Question Answer Notes LastModified by BBOXX Details LastModified Time Tobacco Smoking Status [facility] 01/14/2024 13:05:01 When Did You Quit Smoking? 16+yearssinc elastcigaret te 20 Information not available 09/21/2024 What Was The Date Of Your Most Recent Tobacco Screening? 09/21/2024 Information not available 09/21/2024 What Is Your Current Pack Years? 10-19packyea rs 15 Information not available 01/14/2024 How Much Tobacco Do You Smoke? No Information not available 09/21/2024 Sex: Unknown Functional Status Question Answer Note LastModified by BBOXX Details LastModified Time Do you use any illicit or recreational drugs? No Information not available 09/21/2024 Do you or have you ever used any other forms of tobacco or nicotine? [place] [id number] Information not available 09/21/2024 What is your level of alcohol consumption? None [place] [address] Information not available 09/21/2024 Mental Status None recorded. Family History Relationship Description Onset Age of this Age Resolved Age Notes LastModified by Organization Details LastModified Time Mother Diabetes mellitus [email or web address] Not available 01/13 13:04:20 Medical History No medical history recorded. Gynecological HistoryNo gynecological history recorded. Obstetrics History GPAL:G 0 P 0 0 0 0 Immunizations Vaccine Type Date Status Note Provider Nam e and Address Organization Details Recorded Time zoster recombinant 0 completed LOLITA osorio, [facility] 08/24/2022 11:07:13 zoster recombinant 0 completed LOLITA osorio [facility] 08/24/2022 11:07:13 pneumococcal polysaccharide PPV23 5 completed LOLITA osorio, [facility] 08/24/2022 11:07:13 Tdap 0 completed LOLITA osorio, [facility] 08/24/2022 11:07:13 Influenza, split virus, trivalent, preservative 5 completed LOLITA osorio [facility] 08/24/2022 11:07:13 Td (adult), 2 Lf tetanus toxoid, preservative free, adsorbed 7 completed LOLITA osorio [facility] 08/24/2022 11:07:13 Influenza, split virus, quadrivalent, PF 2 completed LOLITA osorio [facility] 08/24/2022 11:07:13 Influenza, split virus, quadrivalent, PF 1 completed LOLITA osorio, [facility] 08/24/2022 11:07:13 Influenza, split virus, quadrivalent, PF 7 completed LOLITA RAMIREZ null, [facility] 08/24/2022 11:07:14 Hep A-Hep B 7 completed LOLITA RAMIREZ null, [facility] 08/24/2022 11:07:14 Hep A-Hep B 8 completed LOLITA RAMIREZ null, [facility] 08/24/2022 11:07:14 Hep A-Hep B 7 completed LOLITA RAMIREZ null, [facility] 08/24/2022 11:07:14 Influenza, split virus, quadrivalent, PF 3 completed Not Available [facility] 10/27/2024 09:26:01 Past Encounters Encounter ID Performer Location Encounter Start Date Encounter Closed Date Diagnosis/Indication Diagnosis SNOMED-CT Code Diagnosis ICD10 Code Diagnosis IMO Codes Diagnosis Note [id number] Rola Leigh MD [facility]) [address] [place] [address] [id number] 5 08/24/2022 10:47:57 08/24/2022 14:07:03 Hypothyroidism 91988835 E03.9 Diabetes mellitus 020981 09 E11.9 [id number] Rola Leigh MD [facility]) [address] [place] [address] [id number] 5 11/23/2022 07:54:04 12/03/2022 09:18:58 Active or passive immunization 497016812 Z23 Adult heal th examination 450784436 Z00.01 [id number] Rola Leigh MD [facility]) [address] [place] [id number] 5 02/18/2023 08:01:15 02/18/2023 09:29:30 Hyperlipidemia 51712063 E78.5 Hypothyroidism 61664498 E03.9 Type 2 laisha betes mellitus without complication 447819349 E11.9 Allergy to food 24367680 1 Z91.899 [id number] Rola Leigh MD [facility]) [address] [place] [address] [id number] 5 02/22/2023 09:52:52 02/22/2023 15:05:50 Hypothyroidism 61995954 E03.9 [id number] Rola Leigh MD [facility] ([facility]) [address] [place], [place] [phone] 5 09/02/2023 08:40:27 09/02/2023 09:36:26 Allergy to food 809478484 Z91.345 [id number] Rola Leigh MD [facility] ([facility]) [address] [place] [address] 5 09/06/2023 08:03:25 09/06/2023 09:39:39 Essential hypertension 08656247 I10 Type 2 laisha betes mellitus 99981097 E11.65 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.3293 Hypothyroidism 32131394 E03.9 [id number] Rola Leigh MD [facility] ([facility]) [address] [place] [address] [id number] 5 11/25/2023 08:39:54 12/03/2023 13:50:51 Adult health examination 519636990 Z00.00 [id number] Rola Leigh MD [facility] ([facility]) [address] [place] [address] [id number] 5 11/19/2023 12:33:58 11/20/2023 11:33:39 Adult health examination 170210572 Z00.01 [id number] Rola Leigh MD [facility] ([facility]) [address] [place] [address] [id number] 5 03/16/2024 11:27:18 03/17/2024 10:27:16 Essential hypertension 53714252 I10 Type 2 laisha betes mellitus 13615983 E11.65 Hyperlipidemia 51145014 E78.5 Hypothyroidism 43915577 E03.9 Allergy to food 20711329 1 Z91.275 [id number] Rola Leigh MD [facility] ([facility]) [address] [place] [id number] 5 03/23/2024 08:04:04 03/23/2024 09:34:08 Essential hypertension 05670179 I10 bp will be checked at home to see if monica/arb could be tolerated. previously was low. Globulin l lily outside reference range 132710152 R77.1 Chronic constipation 236 824441 K59.09 uses miralax otc. she requests a prescripti on. she is doing well with it. likely exacerbate d by mounjaro [id number] Rola Leigh MD [facility] ([facility]) [address] [place] [address] [id number] 5 09/21/2024 09:20:50 09/21/2024 15:50:46 Essential hypertension 18623239 I10 once again bp will be checked at home to see if monica/arb could be tolerated. previously was low. Type 2 laisha betes mellitus 43468343 E11.65 Hyperlipidemia 38094961 E78.5 Hypothyroidism 02197912 E03.9 Loss of hair 118192906 L 65.9 [id number] would like to d/w dermatolog y [id number] Geoffrey Smith MD [facility] ([facility]) [address] [place] [address] [id number] 5 09/21/2024 13:21:27 09/21/2024 14:46:48 History of polyp of colon 384306549 Z86.0100 [id number] Rola Leigh MD [facility] ([facility]) [address] [place] [address] [id number] 5 09/17/2024 08:35:34 09/17/2024 17:25:36 Essential hypertension 83142161 I10 bp will be checked at home to see if monica/arb could be tolerated. previously was low. Type 2 laisha betes mellitus 10568713 E11.65 Hyperlipidemia 20918488 E78.5 Hypothyroidism 28400470 E03.9 [id number] Rola Leigh MD [facility] ([facility]) [address] [place] [address] [id number] 5 10/27/2024 09:21:52 10/27/2024 13:21:15 Peripheral neuropathic pain 314180092 M79.2 [id number] Health Concerns Section Related Observation LastModified by Organization Detai ls LastModified Time None Recorded Concern Status LastModified by Organization Details LastModified Time None Recorded Advance Directives Directive None Recorded Payers Insurance Date Sequence Insurance Name Policy Number Policy Stokes Covered Member ID Stokes Member ID Guarantor Name 11/27/[address] - [employer] (PPO) [id number] Fatoumata Souza [id number] Fatoumata Souza 10/27/2024 1 [employer] [id number] Fatoumata Souza [id number] Fatoumata Souza 12/04/2024 2 [facility] Yusuf Souza [id number] Fatoumata Souza Notes Date Note Type Note Provider Name and Address Organization Details Recorded Time 5 text/html Annual WellnessReported by PatientSocial/Behavioral HistoryFor diet and nutrition, patient reportshealthy diet. For physical activity, patient reportsexercises on a regular basis (walks). For additional lifestyle factors, patient reportsno tobacco useandno alcohol intake.Mental Status:For depression risk, patient reportsno history of depression.Functional AbilityFor vision, patient reportsworse both distance and near (glasses). For hearing, patient reportsno loss of hearing.Pt checks her glucose 4 times daily with Freestyle Ml. She is compliant with it's usage and is benefiting from it's usage. Her freestyle ml was recently denied by her insurance because she is not on insulin. HypertensionReported by Patientthe patient reports her bp has been at goal for some timeROS as noted in the HPI Rola Leigh MD [address] [place] [address], [phone], [facility] 03/23/2024 08:26:43 5 text/html Annual WellnessReported by PatientSocial/Behavioral HistoryFor diet and nutrition, patient reportshealthy diet. For physical activity, patient reportsexercises on a regular basis (walks). For additional lifestyle factors, patient reportsno tobacco useandno alcohol intake.Mental Status:For depression risk, patient reportsno history of depression.Functional AbilityFor vision, patient reportsworse both distance and near (glasses). For hearing, patient reportsno loss of hearing. HypertensionReported by PatientHPIFor associated symptoms, patient reportsno shortness of breathandno palpitations.the patient reports her bp has been at goal for some timeROS as noted in the HPI Pt had a diabetic eye exam and is now receiving injections in her right eye. Rola Leigh MD [address] [place] [address], [phone], [facility] 09/21/2024 10:06:29 5 text/html Colonoscopy ScreeningReported by PatientColonoscopy ScreeningFor gi symptoms, patient reportsconstipation (controlled with miralax)but reportsno abdominal pain,no diarrhea,no recent change in bowel movements,no change in the stool,no color change in stool, andno rectal bleeding. For context, patient reportsprior examinationandhistory of colon polyps. For associated symptoms, patient reportsnormal appetite. For family history, patient reportsno colon cancer. The patient presents today at the request of Dr Leigh for evaluation and discussion of colonoscopy for personal history of Colon polyps. The patient denies any recent abdominal pain, persistent diarrhea, persistent constipation, bloody or dark tarry stools, or mucusy stools. Last Colon Cancer screenin09/02/19 Problems with anesthesia in the past: NONE Family History of Colon cancers: NONE Blood Thinners: Aspirin Co-morbidities: Geoffrey Smith MD [address] [place] [address], [phone], [facility] 09/21/2024 14:28:15 5 text/html Pt is here today for a hospital follow up. She went to the ER with a foot concern. She had a purple spot on the bottom of her foot due to stepping on broken glass. On the CT it was discovered that the wound depth is approx. 1.5 cm. They have consulted with podiatry. 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 Pt is now ambulatory by boot and cane. She is waiting on a referral to vascular surgery in [place] to have stents put in the arteries in her legs. Pt would like to discuss her pain management. She saw Dr. Flores and had a bad experience. She would like to discuss other options. Pt is here today for a hospital follow up. She went to the ER with a foot concern. She had a purple spot on the bottom of her foot. On the CT it was discovered that the wound depth is approx. 1.5 cm. They have consulted with podiatry. Pt is now ambulatory by lucas. Rola Leigh MD [address] [place] [address], [id number], [facility], L.LAngélica 10/27/2024 09:59:09 OBGyn Episode No OBEpisode recorded.
--- OUTSIDE RECORDS SUMMARY | 2024-12-05 14:11 | XMS_ITS | Patient Health Record ---
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 Name Role Phone Reese MAK, Kunal Primary Care Provider UnavailNeal Larson JR Unavailable [phone] Ventura Douglas Unavailable [phone] Frederick Ocasio Unavailable [phone] Charlie Flores Unavailable [phone] Allergies Allergen (clinical drug ingredient) Drug/Non Drug Allergy documented on EMR Reaction Allergy Type Onset Date Status Alpha-Gal Unknown Drug Allergy Active codeine Codeine nausea and vomiting Drug Allergy Active Results Component Value Reference Range Flag Notes US Ankle Brachial Pressure I ndex-[id number] Reviewed date:12/02/2024 04:04:34 PM Interpretation: Performing Lab: Notes/Report: fwc=[id number]&org=iSite jsp=[id number]&org=iSite US Ext Armando Map-13187 Reviewed date:12/02/2024 04:04:33 PM Interpretation: Performing Lab: Notes/Report: uuv=[id number]&org=iSite zfn=[id number]&org=iSite [facility] MRI LE Non-JT w/ + w/o C ont RT-[id number] Reviewed date:12/01/2024 03:27:11 PM Interpretation: Performing Lab: Notes/Report: See Below For Report MRI LE Non-JT w/ + w/o Cont RT Right foot Read See Below For Report CBC w\ Auto Diff 80855 Reviewed date:12/02/2024 04:04:32 PM Interpretation: Performing Lab: Notes/Report: WBC 8.3 4.5-11.0 X10'3 RBC 2.27 4.00-5.20 X10'6 LOW Hgb 7.5 12.0-16.0 G/DL LOW Hct 22.4 36.0-46.0 % LOW MCV 98.7 80.0-100.0 FL MCH 33.0 27.0-31.0 PG HI MCHC 33.5 31.0-37.0 G/DL Platelet 410 150-400 X10'3 HI RDW-SD 48.9 35.0-49.0 FL RDW-CV 13.5 12.2-15.6 % MPV 8.9 9.2-12.0 FL LOW Neutro Auto% 64.3 40.0-70.0 % Lymph Auto% 22.0 22.0-44.0 % Bay Auto% 7.7 3.0-7.0 % HI Eos Auto% 4.8 2.0-4.0 % HI Baso Auto% 0.7 0.0-1.0 % Imm Gran% .5 .0-.4 % HI Neutro Abs 5.31 .80-7.70 Absolute Neutrophil Count 5310 NA Lymph Abs 1.82 .10-4.10 Bay Abs .64 .20-1.00 Eos Abs .40 .00-.40 Baso Abs .06 .00-.20 Imm Gran Abs .04 .00-.10 NRBC# .00 .00-.20 X10'3 NRBC% .00 .00-.20 /100 intact WBC's Creatine Kinase 17885 Reviewed date:12/02/2024 04:04:32 PM Interpretation: Performing Lab: Notes/Report: CK 88 26-192 UNIT/L Comprehensive Metabolic Pane l (CMP) 99351 Reviewed date:12/02/2024 04:04:32 PM Interpretation: Performing Lab: Notes/Report: Glucose Serum 181 71-110 MG/DL HI Testing p erformed at [facility], [address] [place] [address] [place] [address]. CLIA ID#: [id number] BUN 10 7-21 MG/DL Creat .64 .51-1.17 MG/DL R-yzeyfn-q-benzoquin one imine (NAPQI) is a metabolite of acetaminophen, NAPQI concentrations of apparoximately 10 mg/L correlation to toxic levels of acetaminophen demonstrates a greater than or equil to 10% change in results. NAPQI concentrations greater than this may lead to falsely depressed results for patient samples. Use of this assay is not recommended for patients undergoing treatment with phenindione, due to the potential for falsely depressed results. GFR 103.2 NA Calculation pe rformed from GFR calculator provided by the National [employer]. Glomerular Filtration rate(GRF) is the best overall index of kidney function. Normal GFR varies according to age,sex, body size, and declines with age. The National Kidney Foundation recommends using the CKD-EPI Creatinine Equation(2020) to estimate GFR. BUN/Creat Ratio 15.6 12.0-20.0 % Total Protein 6.6 5.8-8.0 G/DL Albumin 3.8 3.2-4.8 G/DL Globulin 2.8 2.3-3.5 G/DL Alb/Glob 1.4 0.8-2.2 Calcium 8.7 8.7-10.4 MG/DL Sodium 137 136-145 MMOL/L Potassium 3.9 3.5-5.1 MMOL/L Chloride 100 98-107 MMOL/L CO2 27.8 20.0-31.0 MMOL/L Anion Gap 13 5-15 Alk Phos 92 46-116 Bili Total .8 .3-1.2 MG/DL Use of this assay is not recommended for patients undergoing treatment with eltrombopag due to the potential for falsely elevated results. AST/SGOT 21 15-37 UNIT/L ALT/SGPT 22 12-78 UNIT/L Osmo Serum,Calculated 288 280-300 MOSM/KG Glucometer WB--78105 Reviewed date:12/02/2024 04:04:32 PM Interpretation: Performing Lab: Notes/Report: Glucometer WBG 130 65-110 MG/DL HI R~Meter: [id number]~Creative Specialist: [id number] EDISONABELErrol FERN Glucometer WBG--13200 Reviewed date:12/02/2024 04:04:32 PM Interpretation: Performing Lab: Notes/Report: Glucometer WBG 119 65-110 MG/DL HI Notify R N~Meter: [id number]~Creative Specialist: [id number] EVERARDO STUBBS Glucometer WBG--06991 Reviewed date:12/02/2024 04:04:32 PM Interpretation: Performing Lab: Notes/Report: Glucometer WBG 110 65-110 MG/DL Meter: [id number]~Creative Specialist: [id number] BONIFACIO Dong [address], 78307 Reviewed date:12/02/2024 04:04:34 PM Interpretation: Performing Lab: Notes/Report: Diagnosis Description: Atherosclerosis of [place] arteries of extremities with rest pain, unspecified extremity Diagnosis Description: Atherosclerosis of [place] arteries of right leg with ulceration of other part of foot Diagnosis Description: Essential (primary) hypertension Diagnosis Description: Type 2 diabetes mellitus without complications Diagnosis Description: Encounter for other preprocedural examination Diagnosis Description: custodial (current) use of anticoagulants Diagnosis Description: Shortness of breath ABO/Rh Interp A POS Unknown PRBC-LR--[id number] Reviewed date:12/02/2024 04:04:33 PM Interpretation: Performing Lab: Notes/Report: Diagnosis Description: Atherosclerosis of [place] arteries of extremities with rest pain, unspecified extremity Diagnosis Description: Atherosclerosis of [place] arteries of right leg with ulceration of other part of foot Diagnosis Description: Essential (primary) hypertension Diagnosis Description: Type 2 diabetes mellitus without complications Diagnosis Description: Encounter for other preprocedural examination Diagnosis Description: custodial (current) use of anticoagulants Diagnosis Description: Shortness of breath Number of Units 2 NA Product Type Blood Product NA US Ankle Brachial Pressure I ndex-11543 Reviewed date:12/02/2024 04:04:34 PM Interpretation: Performing Lab: Notes/Report: This report was dictated at the [facility] FINAL REPORT Read This report was dictated at the [facility] WBC Auto Diff--32915 Reviewed date:12/02/2024 04:04:33 PM Interpretation: Performing Lab: Notes/Report: Added by Discern Rules Neutro Auto% 63.8 40.0-70.0 % Lymph Auto% 26.3 22.0-44.0 % Bay Auto% 5.3 3.0-7.0 % Eos Auto% 3.4 2.0-4.0 % Baso Auto% 0.9 0.0-1.0 % NRBC% .00 .00-.20 /100 intact WBC's Neutro Abs 6.13 .80-7.70 Absolute Neutrophil Count 6130 NA Lymph Abs 2.53 .10-4.10 Bay Abs .51 .20-1.00 Eos Abs .33 .00-.40 Baso Abs .09 .00-.20 NRBC# .00 .00-.20 X10'3 Imm Gran Abs .03 .00-.10 Imm Gran% .3 .0-.4 % CRP 67537 Reviewed date:12/02/2024 04:04:32 PM Interpretation: Performing Lab: Notes/Report: CRP 6.13 .40-1.00 MG/DL LA Comprehensive Metabolic Pane l (CMP) 03939 Reviewed date:12/02/2024 04:04:32 PM Interpretation: Performing Lab: Notes/Report: Glucose Serum 167 71-110 MG/DL LA Testing p erformed at [facility], [address] [place] [address] [place] [address]. CLIA ID#: [id number] BUN 7 7-21 MG/DL Creat .62 .51-1.17 MG/DL E-ujmrfs-p-benzoquin one imine (NAPQI) is a metabolite of acetaminophen, NAPQI concentrations of apparoximately 10 mg/L correlation to toxic levels of acetaminophen demonstrates a greater than or equil to 10% change in results. NAPQI concentrations greater than this may lead to falsely depressed results for patient samples. Use of this assay is not recommended for patients undergoing treatment with phenindione, due to the potential for falsely depressed results. GFR 104.1 NA Calculation pe rformed from GFR calculator provided by the National Kidney Foundation. Glomerular Filtration rate(GRF) is the best overall index of kidney function. Normal GFR varies according to age,sex, body size, and declines with age. The National Kidney Foundation recommends using the CKD-EPI Creatinine Equation(2020) to estimate GFR. BUN/Creat Ratio 11.3 12.0-20.0 % LOW Total Protein 6.6 5.8-8.0 G/DL Albumin 3.7 3.2-4.8 G/DL Globulin 2.9 2.3-3.5 G/DL Alb/Glob 1.3 0.8-2.2 Calcium 9.0 8.7-10.4 MG/DL Sodium 140 136-145 MMOL/L Potassium 3.6 3.5-5.1 MMOL/L Chloride 102 98-107 MMOL/L CO2 28.7 20.0-31.0 MMOL/L Anion Gap 13 5-15 Alk Phos 87 46-116 Bili Total .7 .3-1.2 MG/DL Use of this assay is not recommended for patients undergoing treatment with eltrombopag due to the potential for falsely elevated results. AST/SGOT 23 15-37 UNIT/L ALT/SGPT 26 12-78 UNIT/L Osmo Serum,Calculated 292 280-300 MOSM/KG Glucometer WBG--87247 Reviewed date:12/02/2024 04:04:32 PM Interpretation: Performing Lab: Notes/Report: Glucometer WBG 201 65-110 MG/DL HI Result N ot Confirmed~Meter: [id number]~Creative Specialist: [id number] BONIFACIO SAHU Glucometer WBG--98583 Reviewed date:12/02/2024 04:04:32 PM Interpretation: Performing Lab: Notes/Report: Glucometer WBG 137 65-110 MG/DL HI Asymptom atic~Meter: [id number]~Creative Specialist: [id number] INES LISA Glucometer WBG--32348 Reviewed date:12/02/2024 04:04:32 PM Interpretation: Performing Lab: Notes/Report: Glucometer WBG 124 65-110 MG/DL HI Notify R N~Meter: [id number]~Creative Specialist: [id number] BONIFACIO SAHU Comprehensive Metabolic Pane l ([facility]) [address] Reviewed date:12/02/2024 04:04:32 PM Interpretation: Performing Lab: Notes/Report: Glucose Serum 170 71-110 MG/DL HI Testing p erformed at [facility], [address] [place] [address] [place] [address]. CLIA ID#: [id number] BUN 6 7-21 MG/DL LOW Creat .49 .51-1.17 MG/DL LOW H-uwmryk-q-benzoquin one imine (NAPQI) is a metabolite of acetaminophen, NAPQI concentrations of apparoximately 10 mg/L correlation to toxic levels of acetaminophen demonstrates a greater than or equil to 10% change in results. NAPQI concentrations greater than this may lead to falsely depressed results for patient samples. Use of this assay is not recommended for patients undergoing treatment with phenindione, due to the potential for falsely depressed results. GFR 110.3 NA Calculation pe rformed from GFR calculator provided by the National [employer]. Glomerular Filtration rate(GRF) is the best overall index of kidney function. Normal GFR varies according to age,sex, body size, and declines with age. The National Kidney Foundation recommends using the CKD-EPI Creatinine Equation(2020) to estimate GFR. BUN/Creat Ratio 12.2 12.0-20.0 % Total Protein 6.3 5.8-8.0 G/DL Albumin 3.7 3.2-4.8 G/DL Globulin 2.6 2.3-3.5 G/DL Alb/Glob 1.4 0.8-2.2 Calcium 8.8 8.7-10.4 MG/DL Sodium 140 136-145 MMOL/L Potassium 3.7 3.5-5.1 MMOL/L Chloride 102 98-107 MMOL/L CO2 27.8 20.0-31.0 MMOL/L Anion Gap 14 5-15 Alk Phos 93 46-116 Bili Total .6 .3-1.2 MG/DL Use of this assay is not recommended for patients undergoing treatment with eltrombopag due to the potential for falsely elevated results. AST/SGOT 30 15-37 UNIT/L ALT/SGPT 29 12-78 UNIT/L Osmo Serum,Calculated 292 280-300 MOSM/KG IMH MRI LE Non-JT w/ + w/o C ont RT-[id number] Reviewed date:11/30/2024 08:52:38 PM Interpretation: Performing Lab: Notes/Report: pwb=[id number]&org=iSite WBC Auto Diff--99812 Reviewed date:11/30/2024 10:15:14 AM Interpretation: Performing Lab: Notes/Report: Added by Discern Rules Neutro Auto% 76.6 40.0-70.0 % HI Lymph Auto% 15.2 22.0-44.0 % LOW Bay Auto% 6.4 3.0-7.0 % Eos Auto% 1.2 2.0-4.0 % LOW Baso Auto% 0.4 0.0-1.0 % NRBC% .00 .00-.20 /100 intact WBC's Neutro Abs 7.44 .80-7.70 Absolute Neutrophil Count 7440 NA Lymph Abs 1.48 .10-4.10 Bay Abs .62 .20-1.00 Eos Abs .12 .00-.40 Baso Abs .04 .00-.20 NRBC# .00 .00-.20 X10'3 Imm Gran Abs .02 .00-.10 Imm Gran% .2 .0-.4 % CBC Ref[place] Diff 24212, 8 0328 Reviewed date:11/30/2024 10:15:14 AM Interpretation: Performing Lab: Notes/Report: WBC 9.7 4.5-11.0 X10'3 RBC 2.28 4.00-5.20 X10'6 LOW Hgb 7.6 12.0-16.0 G/DL LOW Hct 22.9 36.0-46.0 % LOW MCV 100.4 80.0-100.0 FL HI MCH 33.3 27.0-31.0 PG HI MCHC 33.2 31.0-37.0 G/DL Platelet 323 150-400 X10'3 RDW-SD 49.3 35.0-49.0 FL HI RDW-CV 13.3 12.2-15.6 % MPV 9.6 9.2-12.0 FL Review Auto Diff Conf Glucometer WBG--13470 Reviewed date:12/02/2024 04:04:32 PM Interpretation: Performing Lab: Notes/Report: Glucometer WBG 159 65-110 MG/DL HI Asymptom atic~Meter: [id number]~Creative Specialist: [id number] INES GONZALEZ Foot Min 3V Right-41723 Reviewed date:12/02/2024 04:04:32 PM Interpretation: Performing Lab: Notes/Report: See Below For Report Foot Min 3V Right Read See Below For Report Foot Min 3V Right-16996 Reviewed date:12/02/2024 04:04:32 PM Interpretation: Performing Lab: Notes/Report: afa=[id number]&org=iSite Glucometer WBG--23455 Reviewed date:12/02/2024 04:04:32 PM Interpretation: Performing Lab: Notes/Report: Glucometer WBG 119 65-110 MG/DL HI Result N ot Confirmed~Meter: [id number]~Creative Specialist: [id number] BONIFACIO SAHU [facility] ([facility]) [address] Reviewed date:12/02/2024 04:04:32 PM Interpretation: Performing Lab: Notes/Report: Glucose Serum 120 71-110 MG/DL HI Testing p erformed at [facility], [address] [place] [address] [place] [address]. CLIA ID#: [id number] BUN 9 7-21 MG/DL Creat .49 .51-1.17 MG/DL LOW M-qfgydz-z-benzoquin one imine (NAPQI) is a metabolite of acetaminophen, NAPQI concentrations of apparoximately 10 mg/L correlation to toxic levels of acetaminophen demonstrates a greater than or equil to 10% change in results. NAPQI concentrations greater than this may lead to falsely depressed results for patient samples. Use of this assay is not recommended for patients undergoing treatment with phenindione, due to the potential for falsely depressed results. GFR 110.1 NA Calculation pe rformed from GFR calculator provided by the National Kidney Foundation. Glomerular Filtration rate(GRF) is the best overall index of kidney function. Normal GFR varies according to age,sex, body size, and declines with age. The National Kidney Foundation recommends using the CKD-EPI Creatinine Equation(2020) to estimate GFR. BUN/Creat Ratio 18.4 12.0-20.0 % Total Protein 5.9 5.8-8.0 G/DL Albumin 3.5 3.2-4.8 G/DL Globulin 2.4 2.3-3.5 G/DL Alb/Glob 1.5 0.8-2.2 Calcium 8.6 8.7-10.4 MG/DL LOW Sodium 140 136-145 MMOL/L Potassium 4.0 3.5-5.1 MMOL/L Chloride 105 98-107 MMOL/L CO2 26.0 20.0-31.0 MMOL/L Anion Gap 13 5-15 Alk Phos 84 46-116 Bili Total .6 .3-1.2 MG/DL Use of this assay is not recommended for patients undergoing treatment with eltrombopag due to the potential for falsely elevated results. AST/SGOT 28 15-37 UNIT/L ALT/SGPT 24 12-78 UNIT/L Osmo Serum,Calculated 290 280-300 MOSM/KG CBC w\ Auto Diff 78387 Reviewed date:12/02/2024 04:04:33 PM Interpretation: Performing Lab: Notes/Report: WBC 10.4 4.5-11.0 X10'3 RBC 2.28 4.00-5.20 X10'6 LOW Hgb 7.6 12.0-16.0 G/DL LOW Hct 22.4 36.0-46.0 % LOW MCV 98.2 80.0-100.0 FL MCH 33.3 27.0-31.0 PG HI MCHC 33.9 31.0-37.0 G/DL Platelet 299 150-400 X10'3 RDW-SD 48.0 35.0-49.0 FL RDW-CV 13.3 12.2-15.6 % MPV 9.3 9.2-12.0 FL Neutro Auto% 78.5 40.0-70.0 % HI Lymph Auto% 13.5 22.0-44.0 % LOW Bay Auto% 6.8 3.0-7.0 % Eos Auto% .2 2.0-4.0 % LOW Baso Auto% 0.6 0.0-1.0 % Imm Gran% .4 .0-.4 % Neutro Abs 8.18 .80-7.70 HI Absolute Neutrophil Count 8180 NA Lymph Abs 1.41 .10-4.10 Bay Abs .71 .20-1.00 Eos Abs .02 .00-.40 Baso Abs .06 .00-.20 Imm Gran Abs .04 .00-.10 NRBC# .00 .00-.20 X10'3 NRBC% .00 .00-.20 /100 intact WBC's Glucometer WBG--33841 Reviewed date:12/02/2024 04:04:33 PM Interpretation: Performing Lab: Notes/Report: Glucometer WBG 140 65-110 MG/DL HI Asymptom atic~Meter: [id number]~Creative Specialist: [id number] INES GONZALEZ Glucometer WBG--30981 Reviewed date:12/02/2024 04:04:33 PM Interpretation: Performing Lab: Notes/Report: Glucometer WBG 84 65-110 MG/DL Meter: [id number]~Creative Specialist: [id number] BONIFACIO SAHU Glucometer WBG--96144 Reviewed date:12/02/2024 04:04:33 PM Interpretation: Performing Lab: Notes/Report: Glucometer WBG 130 65-110 MG/DL HI Asymptom atic~Meter: [id number]~Creative Specialist: [id number] INES GONZALEZ [facility] Metabolic Pane ([facility]) [address] Reviewed date:12/02/2024 04:04:33 PM Interpretation: Performing Lab: Notes/Report: Glucose Serum 117 71-110 MG/DL HI Testing p erformed at [facility], [address] [place] [address] [place] [address]. CLIA ID#: [id number] BUN 19 7-21 MG/DL Creat .70 .51-1.17 MG/DL J-tnberf-t-benzoquin one imine (NAPQI) is a metabolite of acetaminophen, NAPQI concentrations of apparoximately 10 mg/L correlation to toxic levels of acetaminophen demonstrates a greater than or equil to 10% change in results. NAPQI concentrations greater than this may lead to falsely depressed results for patient samples. Use of this assay is not recommended for patients undergoing treatment with phenindione, due to the potential for falsely depressed results. GFR 101.3 NA Calculation pe rformed from GFR calculator provided by the National Kidney Foundation. Glomerular Filtration rate(GRF) is the best overall index of kidney function. Normal GFR varies according to age,sex, body size, and declines with age. The National Kidney Foundation recommends using the CKD-EPI Creatinine Equation(2020) to estimate GFR. BUN/Creat Ratio 27.1 12.0-20.0 % HI Total Protein 6.1 5.8-8.0 G/DL Albumin 3.5 3.2-4.8 G/DL Globulin 2.6 2.3-3.5 G/DL Alb/Glob 1.3 0.8-2.2 Calcium 8.7 8.7-10.4 MG/DL Sodium 139 136-145 MMOL/L Potassium 4.2 3.5-5.1 MMOL/L Chloride 103 98-107 MMOL/L CO2 26.3 20.0-31.0 MMOL/L Anion Gap 14 5-15 Alk Phos 76 46-116 Bili Total .4 .3-1.2 MG/DL Use of this assay is not recommended for patients undergoing treatment with eltrombopag due to the potential for falsely elevated results. AST/SGOT 18 15-37 UNIT/L ALT/SGPT 22 12-78 UNIT/L POCT-ACT--NO CPT Reviewed date:12/02/2024 04:04:32 PM Interpretation: Performing Lab: Notes/Report: POCT-ACT 143 75-120 SEC HI POCT-ACT--NO CPT Reviewed date:12/02/2024 04:04:32 PM Interpretation: Performing Lab: Notes/Report: POCT-ACT 286 75-120 SEC HI POCT-ACT--NO CPT Reviewed date:12/02/2024 04:04:32 PM Interpretation: Performing Lab: Notes/Report: POCT-ACT 244 75-120 SEC HI POCT-ACT--NO CPT Reviewed date:12/02/2024 04:04:32 PM Interpretation: Performing Lab: Notes/Report: POCT-ACT 328 75-120 SEC HI Glucometer WBG--21275 Reviewed date:12/02/2024 04:04:33 PM Interpretation: Performing Lab: Notes/Report: Glucometer WBG 93 65-110 MG/DL Meter: [id number]~Creative Specialist: [id number] DANI GALEANA BB ABORH-53612,[id number] Reviewed date:12/02/2024 04:04:33 PM Interpretation: Performing Lab: Notes/Report: JAMES Layton A POS Unknown Crossmatch--[id number] Reviewed date:12/02/2024 04:04:33 PM Interpretation: Performing Lab: Notes/Report: Blood Bank ID [id number] Unknown Blood Product Notification hold Unknown IS 0+ XM Interp Compatible IS 0+ XM Interp Compatible Glucometer WBG--32773 Reviewed date:12/02/2024 04:04:32 PM Interpretation: Performing Lab: Notes/Report: Glucometer WBG 112 65-110 MG/DL HI Notify R N~Meter: [id number]~Creative Specialist: [id number] EVERARDO STUBBS WBC Auto Diff--80821 Reviewed date:12/01/2024 03:27:11 PM Interpretation: Performing Lab: Notes/Report: Added by Discern Rules Neutro Auto% 56.6 40.0-70.0 % Lymph Auto% 30.3 22.0-44.0 % Bay Auto% 7.2 3.0-7.0 % HI Eos Auto% 4.8 2.0-4.0 % HI Baso Auto% 0.7 0.0-1.0 % NRBC% .00 .00-.20 /100 intact WBC's Neutro Abs 4.72 .80-7.70 Absolute Neutrophil Count 4720 NA Lymph Abs 2.52 .10-4.10 Bay Abs .60 .20-1.00 Eos Abs .40 .00-.40 Baso Abs .06 .00-.20 NRBC# .00 .00-.20 X10'3 Imm Gran Abs .03 .00-.10 Imm Gran% .4 .0-.4 % CBC Ref[place] Diff 56470, 8 4107 Reviewed date:12/01/2024 03:27:11 PM Interpretation: Performing Lab: Notes/Report: WBC 8.3 4.5-11.0 X10'3 RBC 2.36 4.00-5.20 X10'6 LOW Hgb 7.9 12.0-16.0 G/DL LOW Hct 23.8 36.0-46.0 % LOW MCV 100.8 80.0-100.0 FL HI MCH 33.5 27.0-31.0 PG HI MCHC 33.2 31.0-37.0 G/DL Platelet 378 150-400 X10'3 RDW-SD 51.0 35.0-49.0 FL HI RDW-CV 13.8 12.2-15.6 % MPV 8.9 9.2-12.0 FL LOW Review Auto Diff Conf Glucometer WBG--15022 Reviewed date:12/02/2024 04:04:32 PM Interpretation: Performing Lab: Notes/Report: Glucometer WBG 112 65-110 MG/DL HI Result N ot Confirmed~Meter: [id number]~Creative Specialist: [id number] BONIFACIO SAHU Prothrombin Time 10535 Reviewed date:12/02/2024 04:04:34 PM Interpretation: Performing Lab: Notes/Report: Diagnosis Description: Atherosclerosis of [place] arteries of extremities with rest pain, unspecified extremity Diagnosis Description: Atherosclerosis of [place] arteries of right leg with ulceration of other part of foot Diagnosis Description: Essential (primary) hypertension Diagnosis Description: Type 2 diabetes mellitus without complications Diagnosis Description: Encounter for other preprocedural examination Diagnosis Description: custodial (current) use of anticoagulants Diagnosis Description: Shortness of breath ProTime 10.8 9.1-11.9 SEC Normal Range : 9.1-11.9 INR 1.02 .90-1.20 Therapeutic Range: 2.0-3.0 Therapaeutic Range for heart valve replacement: 2.5-3.50 Antibody Screen 05789 Reviewed date:12/02/2024 04:04:34 PM Interpretation: Performing Lab: Notes/Report: Diagnosis Description: Atherosclerosis of [place] arteries of extremities with rest pain, unspecified extremity Diagnosis Description: Atherosclerosis of [place] arteries of right leg with ulceration of other part of foot Diagnosis Description: Essential (primary) hypertension Diagnosis Description: Type 2 diabetes mellitus without complications Diagnosis Description: Encounter for other preprocedural examination Diagnosis Description: custodial (current) use of anticoagulants Diagnosis Description: Shortness of breath Blood Bank ID [id number] Unknown ABSC Interp Negative Basic Metabolic Panel (BMP) 35209 Reviewed date:12/02/2024 04:04:33 PM Interpretation: Performing Lab: Notes/Report: Diagnosis Description: Atherosclerosis of [place] arteries of extremities with rest pain, unspecified extremity Diagnosis Description: Atherosclerosis of [place] arteries of right leg with ulceration of other part of foot Diagnosis Description: Essential (primary) hypertension Diagnosis Description: Type 2 diabetes mellitus without complications Diagnosis Description: Encounter for other preprocedural examination Diagnosis Description: custodial (current) use of anticoagulants Diagnosis Description: Shortness of breath Sodium 139 136-145 MMOL/L Potassium 4.4 3.5-5.1 MMOL/L Chloride 100 98-107 MMOL/L CO2 29.6 20.0-31.0 MMOL/L Glucose Serum 79 71-110 MG/DL Testing p erformed at [facility], [address] [place] [address] Dr. [place], [place] [address]. CLIA ID#: [id number] BUN 16 7-21 MG/DL Creat .67 .51-1.17 MG/DL J-ypsxhi-y-benzoquin one imine (NAPQI) is a metabolite of acetaminophen, NAPQI concentrations of apparoximately 10 mg/L correlation to toxic levels of acetaminophen demonstrates a greater than or equil to 10% change in results. NAPQI concentrations greater than this may lead to falsely depressed results for patient samples. Use of this assay is not recommended for patients undergoing treatment with phenindione, due to the potential for falsely depressed results. GFR 102.2 NA Calculation pe rformed from GFR calculator provided by the National Kid[employer]. Glomerular Filtration rate(GRF) is the best overall index of kidney function. Normal GFR varies according to age,sex, body size, and declines with age. The National Kidney Foundation recommends using the CKD-EPI Creatinine Equation(2020) to estimate GFR. Anion Gap 14 5-15 BUN/Creat Ratio 23.9 12.0-20.0 % HI Calcium 9.8 8.7-10.4 MG/DL Osmo Serum,Calculated 288 280-300 MOSM/KG Partial Thromboplastin Time 40529 Reviewed date:12/02/2024 04:04:33 PM Interpretation: Performing Lab: Notes/Report: Diagnosis Description: Atherosclerosis of gila [place] arteries of extremities with rest pain, unspecified extremity Diagnosis Description: Atherosclerosis of [place] arteries of right leg with ulceration of other part of foot Diagnosis Description: Essential (primary) hypertension Diagnosis Description: Type 2 diabetes mellitus without complications Diagnosis Description: Encounter for other preprocedural examination 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 Critical Value Starting at > 100. 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 Diagnosis Description: Shortness of breath WBC 9.6 4.5-11.0 X10'3 RBC 3.87 4.00-5.20 X10'6 LOW Hgb 12.8 12.0-16.0 G/DL Hct 38.8 36.0-46.0 % MCV 100.3 80.0-100.0 FL HI MCH 33.1 27.0-31.0 PG HI MCHC 33.0 31.0-37.0 G/DL Platelet 385 150-400 X10'3 RDW-SD 50.7 35.0-49.0 FL HI RDW-CV 13.6 12.2-15.6 % MPV 8.8 9.2-12.0 FL LOW Review Auto Diff Conf Chest PA/Lat-26799 Reviewed date:12/02/2024 04:04:33 PM Interpretation: Performing Lab: Notes/Report: [id number]=iSite US Ext [facility]-83666 Reviewed date:12/02/2024 04:04:34 PM Interpretation: Performing Lab: Notes/Report: This report was dictated at the [facility] FINAL REPORT Read This report was dictated at the [facility] Chest PA/Lat-17443 Reviewed date:12/02/2024 04:04:33 PM Interpretation: Performing Lab: Notes/Report: See Below For Report Chest PA/Lat Diagnosis Description: Atherosclerosis of [place] arteries of extremities with rest pain, unspecified extremity Read See Below For Report Glucometer WBG--[id number] Reviewed date:12/02/2024 04:04:32 PM Interpretation: Performing Lab: Notes/Report: Glucometer WBG 142 65-110 MG/DL HI Result N ot Confirmed~Meter: [id number]~Creative Specialist: [id number] BONIFACIO SAHU Glucometer WBG--[id number] Reviewed date:12/02/2024 04:04:33 PM Interpretation: Performing Lab: Notes/Report: Glucometer WBG 141 65-110 MG/DL HI Result N ot Confirmed~Meter: [id number]~Creative Specialist: [id number] BONIFACIO SAHU CBC w\ Auto Diff 83003 Reviewed date:12/02/2024 04:04:33 PM Interpretation: Performing Lab: Notes/Report: WBC 11.7 4.5-11.0 X10'3 HI RBC 2.67 4.00-5.20 X10'6 LOW Hgb 8.8 12.0-16.0 G/DL LOW Hct 26.9 36.0-46.0 % LOW MCV 100.7 80.0-100.0 FL HI MCH 33.0 27.0-31.0 PG HI MCHC 32.7 31.0-37.0 G/DL Platelet 346 150-400 X10'3 RDW-SD 50.9 35.0-49.0 FL HI RDW-CV 13.7 12.2-15.6 % MPV 8.7 9.2-12.0 FL LOW Neutro Auto% 70.5 40.0-70.0 % HI Lymph Auto% 20.2 22.0-44.0 % LOW Bay Auto% 8.1 3.0-7.0 % HI Eos Auto% .3 2.0-4.0 % LOW Baso Auto% 0.7 0.0-1.0 % Imm Gran% .2 .0-.4 % Neutro Abs 8.21 .80-7.70 HI Absolute Neutrophil Count 8210 NA Lymph Abs 2.36 .10-4.10 Bay Abs .95 .20-1.00 Eos Abs .04 .00-.40 Baso Abs .08 .00-.20 Imm Gran Abs .02 .00-.10 NRBC# .00 .00-.20 X10'3 NRBC% .00 .00-.20 /100 intact WBC's Glucometer WBG--15526 Reviewed date:12/02/2024 04:04:33 PM Interpretation: Performing Lab: Notes/Report: Glucometer WBG 111 65-110 MG/DL HI Notify R N~Meter: [id number]~Creative Specialist: [id number] BONIFACIO ADELINA Glucometer WBG--[id number] Reviewed date:12/02/2024 04:04:33 PM Interpretation: Performing Lab: Notes/Report: Glucometer WBG 142 65-110 MG/DL HI Asymptom atic~Meter: [id number]~Creative Specialist: [id number] YADI BRANH[facility] ([facility]) [id number] Reviewed date:12/02/2024 04:04:33 PM Interpretation: Performing Lab: Notes/Report: Glucose Serum 127 71-110 MG/DL HI Testing p erformed at [address] [place] [address]. CLIA ID#: [id number] BUN 20 7-21 MG/DL Creat .56 .51-1.17 MG/DL B-gigiah-v-benzoquin one imine (NAPQI) is a metabolite of acetaminophen, NAPQI concentrations of apparoximately 10 mg/L correlation to toxic levels of acetaminophen demonstrates a greater than or equil to 10% change in results. NAPQI concentrations greater than this may lead to falsely depressed results for patient samples. Use of this assay is not recommended for patients undergoing treatment with phenindione, due to the potential for falsely depressed results. GFR 106.8 NA Calculation pe rformed from GFR calculator provided by the [employer]. Glomerular Filtration rate(GRF) is the best overall index of kidney function. Normal GFR varies according to age,sex, body size, and declines with age. The [employer] recommends using the CKD-EPI Creatinine Equation(2020) to estimate GFR. BUN/Creat Ratio 35.7 12.0-20.0 % HI Total Protein 6.5 5.8-8.0 G/DL Albumin 3.8 3.2-4.8 G/DL Globulin 2.7 2.3-3.5 G/DL Alb/Glob 1.4 0.8-2.2 Calcium 8.6 8.7-10.4 MG/DL LOW Sodium 142 136-145 MMOL/L Potassium 4.1 3.5-5.1 MMOL/L Chloride 107 98-107 MMOL/L CO2 25.6 20.0-31.0 MMOL/L Anion Gap 14 5-15 Alk Phos 88 46-116 Bili Total .4 .3-1.2 MG/DL Use of this assay is not recommended for patients undergoing treatment with eltrombopag due to the potential for falsely elevated results. AST/SGOT 27 15-37 UNIT/L ALT/SGPT 23 12-78 UNIT/L Osmo Serum,Calculated 298 280-300 MOSM/KG CBC w\ Auto Diff 93323 Reviewed date:12/02/2024 04:04:33 PM Interpretation: Performing Lab: Notes/Report: WBC 16.5 4.5-11.0 X10'3 HI RBC 3.25 4.00-5.20 X10'6 LOW Hgb 10.8 12.0-16.0 G/DL LOW Hct 31.7 36.0-46.0 % LOW MCV 97.5 80.0-100.0 FL MCH 33.2 27.0-31.0 PG HI MCHC 34.1 31.0-37.0 G/DL Platelet 316 150-400 X10'3 RDW-SD 49.1 35.0-49.0 FL HI RDW-CV 13.4 12.2-15.6 % MPV 8.4 9.2-12.0 FL LOW Neutro Auto% 87.5 40.0-70.0 % HI Lymph Auto% 9.5 22.0-44.0 % LOW Bay Auto% 2.1 3.0-7.0 % LOW Eos Auto% .1 2.0-4.0 % LOW Baso Auto% 0.4 0.0-1.0 % Imm Gran% .4 .0-.4 % Neutro Abs 14.46 .80-7.70 HI Absolute Neutrophil Count 69343 NA Lymph Abs 1.56 .10-4.10 Bay Abs .34 .20-1.00 Eos Abs .02 .00-.40 Baso Abs .06 .00-.20 Imm Gran Abs .06 .00-.10 NRBC# .00 .00-.20 X10'3 NRBC% .00 .00-.20 /100 intact WBC's Reason For Referral Reason eval and treat Diagnosis 1 Pain in left foot (M 79.672) Diagnosis 2 Pain in right foot ( M79.671) Referring Provider First Name Domo Referring Provider Last Name Marija Referring Provider Speciality Pain Medic ine Referred Organization [facility] Referred Provider Charlie Flores Referred Address [address] [place] [phone], Referred Provider Specialty Intervention al Pain Medicine [...] Provider Speciality Nurse Shanell meyer Referred Organization [facility] [place] Referred Provider Frederick Ocasio Referred Address [address] [place] [address] [address]UJA [address],[place],[address], Referred Provider Specialty Vascular [facility] General Notes Samara Reddy RN 05/2024 09:31:13 AM CDT > Please schedule with Barry Stuart Lisa, RN 11/04/2024 10:08:49 AM CDT > images in Nadeem man Brittany M 11/04/2024 02:34:48 PM CDT > Appointment scheduled on 11.11 @ 10:15 Referral Priority Routine Medications Medication SIG (Take, Route, Frequency, Duration) Notes Start Date End Date Status traMADol HCl 100 MG Tablet 1 tablet as n eeded Orally every 8 hrs Active ZyrTEC 10 MG Tablet Chewable 1 tablet Or ally Once a day Active Mounjaro 2.5 MG/0.5ML Solution Auto-injector as directed Subcutaneous weekly 11/24/2024 Active Aspirin 81 81 MG Tablet Delayed Release 1 tablet Orally Once a day Active Crestor 40 MG Tablet 1 tablet Orally Onc e a day Active Gabapentin 600 MG Tablet 1 tablet Orally Once a day Active Hydroxychloroquine Sulfate 200 MG Tablet as directed Orally Active Levothyroxine Sodium 112 MCG Tablet 1 tablet in the morning on an empty stomach Orally Once a day Active Nattokinase 100 MG Capsule as directed Orally Active Pepcid 20 MG Tablet 1 tablet at bedtime as needed Orally Once a day Active Social History [...] Problem Status W/U Status Risk Notes Problem Type II diabetes mellitus without complication (898293809) Type 2 diabetes mellitus without complications (E11.9) Active confirmed Problem Chronic pain syndrome (497725746) Chronic pain syndrome (G89.4) Active confirmed Problem Essential hypertension (85910145) Essential hypertension (I10) Active confirmed Problem Peripheral vascular disease (659999392) PVD (peripheral vascular disease) (I73.9) Active confirmed Problem Diabetic peripheral neuropathy (157686624) Diabetic peripheral neuropathy (E11.42) Active confirmed Problem Long-term current use of insulin (440417916) Insulin long-term use (Z79.4) Active confirmed Problem Abnormal gait (41372934) Abnormality of gait and mobility (R26.9) Active confirmed Problem Ulcer of right foot (disorder) (466441995) Ulcer of right foot, unspecified ulcer stage (L97.519) Active confirmed Problem Long-term current use of anticoagulant (155675844) Current use of termite control 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 anticoagulation (Z79.01) Active confirmed Problem Ischemic foot ulcer due to atherosclerosis of artery of lower limb (disorder) (054826903) Atherosclerosis of [place] artery of right lower extremity with ulceration of other part of foot (I70.235) Active confirmed Problem Type 2 diabetes mellitus with peripheral angiopathy (223434129) Diabetes mellitus with peripheral artery disease (E11.51) Active confirmed Problem Critical limb ischemia of right lower extremity with ulceration of foot (I70.235) Active confirmed Problem Chronic critical ischemia of extremity (I70.229) Active confirmed Vital Signs Heart Rate 77 /min 11/24/2024 Temperature 97.3 degrees Fahrenheit 11/24/2024 Oximetry 100 % 11/24/2024 Blood pressure diastolic 82 mm Hg 11/24/2024 Weight-kg 70.8 kg 11/24/2024 Blood pressure systolic 142 mm Hg 11/24/2024 Weight 156.09 lbs 11/24/2024 Encounters Encounter Location Date Provider Diagnosis [facility] [address] [place] [address] 11/24/2024 [facility] [address] [place] [address] 11/27/2024 Frederick Ocasio [facility] [place] [address] [place] [address] 10/21/2024 Charlie Ruffinraymond Chronic pain syndrom e G89.4 ; Diabetic peripheral neuropathy E11.42 ; Abnormality of gait and mobility R26.9 and 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 opiate analgesic Z79.891 [facility] [address] [place] [address] 11/11/2024 Frederick Amarjit PVD (peripheral vascular disease) I73.9 and Chronic critical ischemia of extremity I70.229 [facility] [address] [place] [address] 11/24/2024 Frederick Ocasio Atherosclerosis of [place] artery of right lower extremity with ulceration of other part of foot I70.235 [facility] [address] [place] [address] 11/25/2024 Frederick Ocasio Chronic critical ischemia of extremity I70.229 ; Atherosclerosis of [place] artery of right lower extremity with ulceration of other part of foot I70.235 ; Essential hypertension I10 ; Type 2 diabetes mellitus without complications E11.9 ; Preop testing Z01.818 ; Current use of termite control 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 anticoagulation Z79.01 and Shortness of breath R06.02 Assessments Encounter Date Diagnosis (ICD Code) Assessment [...] vein to her above-knee popliteal artery. 10/21/2024 Chronic pain syndrome (ICD-10 - G89.4) [...] potential treatment option. She met with a premium 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 from [employer] earlier today, and we will continue this discussion at future visits. We plan to see her back in a couple of months and proceed accordingly. 10/21/2024 Diabetic peripheral neuropathy (ICD-10 - E11.42) 11/25/2024 Chronic critical ischemia of extremity (ICD-10 - I70.229) 11/24/2024 Atherosclerosis of [place] artery of right lower extremity with ulceration of other part of foot (ICD-10 - I70.235) 54-year-old woman with critical limb ischemia of the right lower extremity. Patient has a right SFA occlusion with reconstitution of the above-knee popliteal artery from robust collaterals system from the deep femoral artery. This is in the setting of a fourth toe amputation. She has an open wound that is healing slowly. She does not have any rest pain. ABIs were obtained. They are better on the right than I expected. Her right PT SHASHI 0.83 and DP 0.79. This is likely an evidence of a robust collateral system. They are normal on the left. I explained to Ms. Souza that I do think proceeding with revascularization given that she has a new wound and is in her best interest for optimizing her healing potential. I have reviewed her arteriogram as well as CTA. From the arteriogram it is apparent that the wound is predominantly supplied by the anterior tibial artery. Therefore, I do not recommend retrograde pedal access in order to minimize the risk of injuring her anterior tibial artery. We also discussed percutaneous bypass however given her age I am not sure that long-term data for a percutaneous bypass is out there yet. Today, we proceeded with a vein mapping of her greater saphenous vein. Patient has greater saphenous vein which measures between 4.2 mm and 7.6 mm. This appears to be a very suitable conduit for femoral popliteal bypass. Given her age I think this represents the most durable revascularization option. I have explained my rationale to Mrs. Souza. I have used a diagram to explain my rationale. Patient expressed understanding. I explained the expected intraoperative and postoperative course of a right femoral to below-knee popliteal artery bypass with vein. I explained the risk and benefits. She wishes to proceed. 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 Charlie Flores. I, Dr. Charlie Flores, personally performed the services described in this documentation, as scribed by Chelsea Mei, and it is both accurate and complete. Plan Of Treatment Pending Test Test Name Order Date Electrocardiogram 12 Lead Tracing-[id number] 11/25/2024 Next Appt Details Provider Name:Lesley fung, 12/09/2024 01:15:00 PM, [address] [place] [address] [place], [address], Provider Name:Raisa longo, 12/09/2024 03:00:00 PM, [address] [place], [place] [address]ANUJA E- [address] [place] [address], [phone], Insurance Providers Payer Name Payer Address Payer Phone Subscriber Number Group Number Insured Name Patient Relationship to Insured Coverage Start Date Coverage End Date [facility] [address] [place] [phone] [id number] Fatoumata Souza Self - patient is the insured [facility] [address] [place] [address] [id number] Fatoumata Souza Self - patient is the insured Medical (General) History Medical History History ICD Code High Blood Pressure Diabetes constipation Thyroid disease Surgical History Surgery Date(Month/Year) carpal tunnel release section hysterectomy Hospitalization History Reason Date(Month/Year) ER Visit - Incision check 11.08.24
--- NOTE | 2024-12-05 14:41 | USR_ITS ---
PROCEDURE INFORMATION: Exam: US Duplex Right Lower Extremity Veins, Limited Exam date and time: 12/05/2024 3:32 PM Age: 54 years old Clinical indication: Pain; Leg, upper and leg, lower; Prior surgery; Surgery date: <1 month; Surgery type: Bypass graft right lower extremity. Patient is a poor historian; Additional info: Leg pain TECHNIQUE: Imaging protocol: Real-time duplex ultrasound of the right extremity with 2-D tian scale, color Doppler flow and spectral waveform analysis including responses to compression and other maneuvers (when performed) with image documentation. Limited exam was focused on the right lower extremity veins. COMPARISON: CT angio abd aorta runof 21650 10/09/2024 2:29 PM FINDINGS: Right deep veins: Unremarkable. The common femoral, femoral, proximal profunda femoral and popliteal veins are patent without thrombus. Normal Doppler waveforms. Normal compressibility and/or augmentation response. Superficial veins: Greater saphenous vein at the saphenofemoral junction is patent without thrombus. The greater saphenous vein below the knee was difficult to visualized. Soft tissues: Complex collection in the deep subcutaneous soft tissues of the thigh extending from the groin to the mid lower leg. It does not demonstrate appreciable vascularity on color Doppler. At the groin it measures 4.2 x 1.6 cm. US/[place] [id number] IMPRESSION: 1. No definite evidence of deep vein thrombosis in the right leg. 2. Complex lesion or collection in the thigh extending from the patient's groin to the mid lower leg. Hematoma or abscess would be in the differential diagnosis for which clinical correlation would be very helpful. The greater saphenous vein below the knee was difficult to visualized.
--- NOTE | 2024-12-05 14:41 | USR_ITS ---
PROCEDURE INFORMATION: Exam: US Duplex Right Lower Extremity Arteries Or Arterial Bypass Grafts Exam date and time: 12/05/2024 4:21 PM Age: 54 years old Clinical indication: Pain; Leg, upper and leg, lower; Prior surgery; Surgery date: <1 month; Surgery type: Graft of the right lower extremity performed; Additional info: Leg pain TECHNIQUE: Imaging protocol: Right Real-time duplex scan of the arteries or arterial bypass grafts of the right lower extremity with 2-D tian scale, color Doppler flow and spectral waveform analysis. Images documented and saved. COMPARISON: [place] [id number] 12/05/2024 3:32 PM FINDINGS: Right thigh graft, possibly femoropopliteal bypass graft, appears to be patent with multiphasic flow seen in the thigh and posterior to the knee. The [place] superficial femoral artery does not demonstrate flow and may be occluded. Patent common femoral artery with multiphasic flow. Soft tissues: Complex subcutaneous collection is present in the thigh, seen better on the concurrent venous ultrasound study. US/[place] [id number] IMPRESSION: 1. Patent bypass graft in the right thigh which may be a femoropopliteal graft, although the patient is reportedly a poor historian. The [place] superficial femoral artery does not demonstrate definite flow and may be occluded. This could be further assessed with CTA of the lower extremity. 2. Complex subcutaneous collection is present in the thigh, seen better on the concurrent venous ultrasound study. Please refer to the venous ultrasound study report.
--- NOTE | 2024-12-05 15:24 | W.ED.GENADLT ---
HPI - General Adult General: Chief complaint: General Medical Stated complaint: rt leg swollen (8xday postop) Time Seen by Provider: 12/05/24 14:55 History of Present Illness: Patient is 54-year-old female that underwent right peripheral Al/pop bypass at [facility], released on Saturday, 12/02, presents to the emergency room with swelling to her right leg. She did have [place] food yesterday, however only had an apple day. She asserts that her leg has been above her heart when resting. No issues with pain, other than the swelling associated with this right lower extremity. She stated she had Lasix in the hospital, was concerned she needed Lasix. Associated symptoms: Deny chest pain, dyspnea, nausea, palpitations or vomiting Related Data Home Medications ?Medication ?Instructions ?Recorded ?Confirmed aspirin 81 mg tablet,delayed 81 mg PO QAM 04/23/22 12/05/24 release (Adult Low Dose Aspirin) gabapentin 600 mg tablet 600 mg PO TID 04/23/22 12/05/24 cetirizine 10 mg tablet (Zyrtec) 10 mg PO DAILY PRN allergies 05/03/22 12/05/24 famotidine 20 mg tablet (Pepcid) 20 mg PO BID 05/03/22 12/05/24 rosuvastatin 40 mg tablet (Crestor) 40 mg PO QPM 05/03/22 12/05/24 epinephrine 0.3 mg/0.3 mL See Rx Instructions .Route .COMPLEX 10/08/24 12/05/24 injection, auto-injector acyclovir 800 mg tablet 800 mg PO .5XDAILY 12/05/24 12/05/24 clopidogrel 75 mg tablet 75 mg PO DAILY 12/05/24 12/05/24 erythromycin 5 mg/gram (0.5 %) eye See Rx Instructions .Route .COMPLEX 12/05/24 12/05/24 ointment (3.5 gram tube) levothyroxine 112 mcg tablet 112 mcg PO QAM 12/05/24 12/05/24 polyethylene glycol 3350 17 17 g PO DAILY 12/05/24 12/05/24 gram/dose oral powder (ClearLax) tirzepatide 15 mg/0.5 mL 15 mg SUBCUT Q7D 12/05/24 12/05/24 subcutaneous pen injector (Mounjaro) tramadol 50 mg tablet 100 mg PO TID PRN Pain 12/05/24 12/05/24 Previous Rx's ?Medication ?Instructions ?Recorded prednisone 10 mg tablet See Rx Instructions PO .COMPLEX 05/21/23 PRN joint pain #30 tabs hydroxychloroquine 200 mg tablet 200 mg PO BID #180 tabs 10/06/24 Held on 10/14/24. Instructions: Resume on 11/16/24. hold until yousee furosemide 40 mg tablet (Lasix) 40 mg PO QAM #30 tabs 12/05/24 potassium chloride 10 mEq 10 meq PO DAILY #30 tabs 12/05/24 tablet,extended release (Klor-Con) Allergies Allergy/AdvReac Type Severity Reaction Status Date / Time Alpha-Gal Allergy Severe ALGY-Anaphy Verified 11/25/24 06:58 (Fuebobfhl-Sklrn-0,3-Gala laxis Review of Systems General: Reports: 10 or more systems reviewed and unremarkable except in HPI and below Const: Denies: fever(s), chills, body aches or change in appetite Eyes: Denies: change in vision or blurry vision Card: Denies: chest pain, palpitations or irregular heart rhythm Resp: Denies: dyspnea GI: Denies: abdominal pain, nausea, vomiting or diarrhea Musc: Reports: joint stiffness Skin/Breast: Reports: non-healing lesions and lesions Neuro: Reports: numbness in extremities PFS ED PFSH: Medical History (Updated 12/05/24 @ 18:41 by TAURUS Evans) 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 Immunization counseling High risk medication use Polyarthralgia Positive DANILO (antinuclear antibody) 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 Diabetes Thyroid disease Joint pain Hypertension Neuropathy Carpal tunnel syndrome on both sides Surgical History History of hysterectomy History of delivery Family History Other Cancer Diabetes Hypertension Denies family history of Rheumatoid arthritis Lupus CAD (coronary artery disease) Hyperlipidemia Chronic kidney disease (CKD) Family history of premature coronary artery disease Lung disease Stroke Social History Smoking and tobacco/nicotine status: former use of tobacco/nicotine Alcohol intake: never Substance/Drug Use: never Physical Exam Const: COMMON NORMALS: no acute distress, average body habitus and patient oriented x3 HENMT: COMMON NORMALS: normocephalic and atraumatic HEAD & SCALP: normocephalic and atraumatic Neck/C-Spine: COMMON NORMALS: full ROM and no lymphadenopathy Resp: COMMON NORMALS: normal respiratory effort, No retractions and clear to auscultation bilaterally AUSCULTATION: clear to auscultation bilaterally Cardio: COMMON NORMALS: regular rate and regular rhythm RATE: regular rate RHYTHM: regular rhythm GI: COMMON NORMALS: Normal to inspection, nondistended, normoactive bowel sounds present, Soft to palpation, non-tender and No hepatosplenomegaly present PALPATION: Yes Soft to palpation and Yes No hepatosplenomegaly present : COMMON NORMALS: Yes no CVA tenderness BLADDER/KIDNEY EXAM: Yes no CVA tenderness Back/Pelvis: COMMON NORMALS: no CVA tenderness Extremity: OTHER: Edema +3?4 tibial plateau descending. Recent incisional areas without redness or drainage on the medial side, and the right toe as well. Neuro: COMMON NORMALS: patient oriented x3 and CN's II-XII intact bilaterally Psych: COMMON NORMALS: mental status grossly normal, Normal thought process present and cooperative THOUGHT PROCESS: Normal thought process present Course Vital Signs: Vital signs: Vital Signs Temperature 98.2 F 12/05/24 14:11 Pulse Rate 85 12/05/24 18:51 Respiratory Rate 16 12/05/24 18:51 Blood Pressure 128/60 12/05/24 18:51 Pulse Oximetry 100 12/05/24 18:51 Oxygen Delivery Me thod Room Air 12/05/24 15:27 MDM - General Adult Medical Decision Making 54-year-old female presents to the ED with increasing swelling to right lower extremity status post femoropopliteal for ischemic right lower extremity. She does have significant amount of edema. Will check arterial and venous supply per ultrasound to rule out ischemia or DVT prior to treating with Lasix. Lab Data 12/05/24 17:09 12/05/24 17:09 Radiology Impressions Duplex Scan Lower Extremity Artery 12/05/24 14:41 IMPRESSION: 1. Patent bypass graft in the right thigh which may be a femoropopliteal graft, although the patient is reportedly a poor historian. The [place] superficial femoral artery does not demonstrate definite flow and may be occluded. This could be further assessed with CTA of the lower extremity. 2. Complex subcutaneous collection is present in the thigh, seen better on the concurrent venous ultrasound study. Please refer to the venous ultrasound study report. Venous Duplex 12/05/24 14:41 IMPRESSION: 1. No definite evidence of deep vein thrombosis in the right leg. 2. Complex lesion or collection in the thigh extending from the patient's groin to the mid lower leg. Hematoma or abscess would be in the differential diagnosis for which clinical correlation would be very helpful. The greater saphenous vein below the knee was difficult to visualized. Laboratory Results WBC 11.92 10^3/uL (3.29-11.43) H 12/05/24 17:09 RBC 2.66 10^6/uL (3.85-5.65) L 12/05/24 17:09 Hgb 8.90 g/dL (11.27-16.99) L 12/05/24 17:09 Hct 27.6 % (36-47) L 12/05/24 17:09 MCV 103.8 fl (85-98) H 12/05/24 17:09 MCH 33.5 pg (27-33) H 12/05/24 17:09 MCHC 32.2 g/dL (30-55) 12/05/24 17:09 RDW 14.0 % (12.1-15.1) 12/05/24 17:09 Plt Count 574 10^3/cmm (157-399) H 12/05/24 17:09 MPV 9.1 fL (7.4-10.4) 12/05/24 17:09 Neut % (Auto) 59.8 % 12/05/24 17:09 Lymph % (Auto) 27.6 % 12/05/24 17:09 [place] % (Auto) 6.1 % 12/05/24 17:09 Eos % (Auto) 5.3 % 12/05/24 17:09 Baso % (Auto) 0.8 % 12/05/24 17:09 Neut # (Auto) 7.13 10^3/uL (1.8-7.7) 12/05/24 17:09 Lymph # (Auto) 3.3 10^3/uL (0.8-4.8) 12/05/24 17:09 [place] # (Auto) 0.7 10^3/uL (0.2-0.9) 12/05/24 17:09 Eos # (Auto) 0.6 10^3/uL (0.0-0.8) 12/05/24 17:09 Baso # (Auto) 0.1 10^3/uL (0.0-0.1) 12/05/24 17:09 Nucleated RBC % (auto) 0 % 12/05/24 17:09 Nucleated RBCs # 0.0 /100WBC 12/05/24 17:09 Sodium 138 mmol/L (136-145) 12/05/24 17:09 Potassium 4.3 mmol/L (3.5-5.1) 12/05/24 17:09 Chloride 98 mmol/L (98-107) 12/05/24 17:09 Carbon Dioxide 27 mmol/L (22-29) 12/05/24 17:09 Anion Gap 17.3 (5-19) 12/05/24 17:09 BUN 16 mg/dL (6-20) 12/05/24 17:09 Creatinine 0.7 mg/dL (0.5-0.9) 12/05/24 17:09 GFR Calculation 86.6 mL/min (90-130) L 12/05/24 17:09 Glucose 88 mg/dL (65-115) 12/05/24 17:09 Calculated Osmolality 287 mOsm/kg (285-295) 12/05/24 17:09 Calcium 9.4 mg/dL (8.5-10.5) 12/05/24 17:09 Total Bilirubin 0.4 mg/dL (0.15-1.2) 12/05/24 17:09 AST 26 U/L (0-32) 12/05/24 17:09 ALT 25 U/L (0-33) 12/05/24 17:09 Alkaline Phosphatase 125 U/L (35-105) H 12/05/24 17:09 Total Protein 8.1 g/dL (6.6-8.7) 12/05/24 17:09 Albumin 3.8 g/dL (3.5-5.2) 12/05/24 17:09 Globulin 4.3 g/dL (1.3-4.6) 12/05/24 17:09 All radiology interpretation(s) finalized by discharge Discharge Plan Discharge Patient Disposition: Home Clinical Impression: Edema of right lower leg Condition: Stable Prescriptions: New furosemide [Lasix] 40 mg tablet 40 mg PO QAM Qty: 30 0RF potassium chloride [Klor-Con 10] 10 mEq tablet extended release 10 meq PO DAILY Qty: 30 0RF No Action gabapentin 600 mg tablet 600 mg PO TID aspirin [Adult Low Dose Aspirin] 81 mg tablet,delayed release (DR/EC) 81 mg PO QAM prednisone 10 mg tablet See Rx Instructions PO .COMPLEX PRN (Reason: joint pain) Qty: 30 1RF Rx Instructions: take 1 or 2 tab daily for 3-7 days prn joint pain flare PO PRN; rosuvastatin [Crestor] 40 mg tablet 40 mg PO QPM famotidine [Pepcid] 20 mg tablet 20 mg PO BID cetirizine [Zyrtec] 10 mg tablet 10 mg PO DAILY PRN (Reason: allergies) hydroxychloroquine 200 mg tablet 200 mg PO BID Qty: 180 1RF epinephrine 0.3 mg/0.3 mL auto-injector See Rx Instructions .ROUTE .COMPLEX Rx Instructions: inject 0.3mg NEEDED FOR anaphylaxis. REPEAT if symptoms recur as you are going TO er clopidogrel 75 mg tablet 75 mg PO DAILY tramadol 50 mg tablet 100 mg PO TID PRN (Reason: Pain) acyclovir 800 mg tablet 800 mg PO .5XDAILY erythromycin 5 mg/gram (0.5 %) ointment See Rx Instructions .ROUTE .COMPLEX Rx Instructions: Apply 0.25 INCH TO LEFT upper lid THREE TIMES DAILY polyethylene glycol 3350 [ClearLax] 17 gram/dose powder 17 g PO DAILY levothyroxine 112 mcg tablet 112 mcg PO QAM Mounjaro 15 mg/0.5 mL pen injector 15 mg SUBCUT Q7D Rx Instructions: Saturday Discharge Orders: Discharge ED (Routine); Ordered 12/05/24 Ordered By: Kathrin Young Referrals: Kunal Leigh MD [Primary Care Provider, Family Practice] Discharge Diet: Low Salt Discharge Activity: Resume usual activity Patient Instructions: DASH Eating Plan (ED), Edema (ED), Patient Portal & Ilia Instructions Activity Restrictions/Additional Instructions: - It is crucial that your surgeon manage any concerns or complications with your recent surgery. Please contact your surgeon on Saturday. If you have issues in the interim, make sure you go to the hospital where your surgeon is available for evaluation of your leg. - Compress lower extremity - Take medication as directed. Your Lasix and potassium has been sent to your pharmacy of choice. - Follow a low salt diet. Information has been given to you. This is the best way to avoid edema to your right leg. Print Language: German Coding Level of Care Code ED Dedicated Owner Operator for Kaycee Vidal
[2024-12-05 15:27] VITALS: BP 151/75; O2SAT 100
[2024-12-05] MEDS: FUROsemide 10 mg/mL SDV 4mL 40 MG IVP (16:40)
[2024-12-05 17:13] LABS: Hematocrit 27.6 % (36-47); Hemoglobin 8.90 g/dL (11.27-16.99); Mean Corpuscular HGB Conc 32.2 g/dL (30-55); Mean Corpuscular Hemoglobin 33.5 pg (27-33); Mean Corpuscular Volume 103.8 fl (85-98); Nucleated Red Blood Cells % 0 %; Platelet Count 574 10^3/cmm (157-399); Red Blood Count 2.66 10^6/uL (3.85-5.65); White Blood Count 11.92 10^3/uL (3.29-11.43)
[2024-12-05 17:34] LABS: Alanine Aminotransferase 25 U/L (0-33); Albumin Level 3.8 g/dL (3.5-5.2); Alkaline Phosphatase 125 U/L (35-105); Anion Gap 17.3 (5-19); Aspartate Amino Transferase 26 U/L (0-32); Blood Urea Nitrogen 16 mg/dL (6-20); Calcium 9.4 mg/dL (8.5-10.5); Carbon Dioxide 27 mmol/L (22-29); Chloride 98 mmol/L (98-107); Creatinine Clr Calc Pharmacy 83.7108; Globulin 4.3 g/dL (1.3-4.6); Glucose 88 mg/dL (65-115); Osmolality Calculated 287 mOsm/kg (285-295); Potassium 4.3 mmol/L (3.5-5.1); Sodium 138 mmol/L (136-145); Total Protein 8.1 g/dL (6.6-8.7)
[2024-12-05 18:51] VITALS: BP 128/60; PULSE 85; RESP 16; O2SAT 100
== END 2024-12-05 18:53 | disposition home or self-care (01) ==
PROVIDERS: Emergency Provider Physician Assistant; PCP Family Medicine
DX: R60.0 Localized edema (principal); Z98.890 Other specified postprocedural states; Z79.82 Long term (current) use of aspirin; Z79.02 Long term (current) use of antithrombotics/antiplatelets; Z87.891 Personal history of nicotine dependence; E11.40 Type 2 diabetes mellitus with diabetic neuropathy, unspecified; I10 Essential (primary) hypertension
CPT/HCPCS: 36415; 80053; 85025; 93926; 93971; 96374; 99285; J1938

== ENCOUNTER 2024-12-25 07:59 | Outpatient (CLI) | payer OTHER, SELFPAY ==
--- NOTE | 2024-12-25 | MM_ITS ---
WS: [id number] BILATERAL SCREENING DIGITAL TOMOSYNTHESIS MAMMOGRAM WITH CAD HISTORY: ANNUAL SCREENING COMPARISON: 10/11/2023, 10/05/2022, 05/17/2021 Bilateral CC and MLO views with tomosynthesis and synthetic mammography submitted. Computer aided detection analyzed. Breast composition: There are scattered areas of fibroglandular density. No suspicious masses, microcalcifications or architectural distortion. Extensive benign calcifications in each breast. MM/MM scr BI tomosynthesis [id number] IMPRESSION: BI-RADS: 2 - Benign. FOLLOW UP: 1 Year Follow-up
== END 2024-12-25 08:00 | disposition home or self-care (01) ==
LOC: RAD 08:00
PROVIDERS: PCP Family Medicine; Visit Provider Family Medicine
DX: Z12.31 Encounter for screening mammogram for malignant neoplasm of breast (principal); R92.323 Mammographic fibroglandular density, bilateral breasts; R92.1 Mammographic calcification found on diagnostic imaging of breast
CPT/HCPCS: 77063; 77067

== ENCOUNTER → 2025-01-19 10:28 | Outpatient (BNVA) | payer OTHER, SELFPAY | PROVIDERS: PCP Family Medicine; Visit Provider Thoracic Surgery (Cardiothoracic Vascular Surgery) | DX: L98.499 Non-pressure chronic ulcer of skin of other sites with unspecified severity (principal) | CPT/HCPCS: 87070 ==

== ENCOUNTER → 2025-01-21 12:55 | Outpatient (BNVA) | payer OTHER, SELFPAY | PROVIDERS: PCP Family Medicine; Visit Provider Podiatrist Foot & Ankle Surgery | DX: M79.671 Pain in right foot (principal); M86.671 Other chronic osteomyelitis, right ankle and foot | CPT/HCPCS: 73630 ==

== ENCOUNTER 2025-02-08 07:09 | Day surgery (SDC) | payer OTHER, SELFPAY ==
[2025-02-08 07:27] VITALS: BP 134/77; PULSE 68; RESP 18; TEMP 36.7; O2SAT 100; BMI 26.5
--- NOTE | 2025-02-08 08:04 | ANES.PREANE2 ---
Pre-Anesthetic Assessment Height/Weight: Height 5 ft 2 in Weight 145 lb Temp Pulse Resp BP Pulse Ox O2 Del Method 98.1 F 68 18 134/77 100 Room Air 02/08/25 07:27 02/08/25 07:27 02/08/25 07:27 02/08/25 07:27 02/08/25 07:27 02/08/25 07:33 Preop Diagnosis: Osteomyelitis Operation Date: 02/08/25 08:45 Proposed Procedures p RIGHT Fourth Metatarsal Incision of Bone Cortex(Right) - Jens Guillermo DPM s RIGHT Foot Partial Fifth Ray Resection(Right) - Jens Guillermo DPM Was Beta Yair taken within 24 hours: N/A Was Clonidine taken within 24 hours: N/A Last intake: Intake Last Liquid Date 02/07/25 Last Liquid Time 21:00 Last Solid Date 02/07/25 Last Solid Time 21:00 Social No alcohol and No tobacco Exam alert, oriented x 3, clear to auscultation bilaterally and regular rate & rhythm Airway Submandibular: within normal limits Cervical ROM: within normal limits Mallampati: Class II Dentition: full Anesthetic Plan ASA status: 3 Anesthesia: General Other: No prior issues with anesthesia NPO since yesterday evening Alpha gal noted History of hypothyroidism on Synthroid Psoriatic arthritis Type 2 diabetes, last A1c 5.1. BS today GERD, controlled with Pepcid Labs reviewed from 12/05/2024, hemoglobin 8.9 at that time Plan for general anesthesia Medications/Allergies Home Medications ?Medication ?Instructions ?Recorded ?Confirmed ?Last Taken ?Type aspirin 81 mg tablet,delayed 81 mg PO QAM 04/23/22 02/05/25 02/04/25 History release (Adult Low Dose Aspirin) gabapentin 600 mg tablet 600 mg PO TID 04/23/22 02/05/25 02/08/25 History cetirizine 10 mg tablet (Zyrtec) 10 mg PO DAILY PRN allergies 05/03/22 02/05/25 Unknown History famotidine 20 mg tablet (Pepcid) 20 mg PO BID 05/03/22 02/05/25 02/04/25 History rosuvastatin 40 mg tablet (Crestor) 40 mg PO QPM 05/03/22 02/05/25 02/04/25 History prednisone 10 mg tablet See Rx Instructions PO .COMPLEX 05/21/23 02/05/25 Unknown Rx PRN joint pain #30 tabs hydroxychloroquine 200 mg tablet 200 mg PO BID #180 tabs 10/06/24 02/05/25 02/04/25 Rx Held on 10/14/24. Instructions: Resume on 11/16/24. hold until yousee epinephrine 0.3 mg/0.3 mL See Rx Instructions .Route .COMPLEX 10/08/24 02/05/25 Unknown History injection, auto-injector acyclovir 800 mg tablet 800 mg PO .5XDAILY 12/05/24 02/05/25 02/04/25 History clopidogrel 75 mg tablet 75 mg PO DAILY 12/05/24 02/05/25 02/05/25 History erythromycin 5 mg/gram (0.5 %) eye See Rx Instructions .Route .COMPLEX 12/05/24 02/05/25 12/04/24 History ointment (3.5 gram tube) furosemide 40 mg tablet (Lasix) 40 mg PO QAM #30 tabs 12/05/24 02/05/25 02/04/25 Rx levothyroxine 112 mcg tablet 112 mcg PO QAM 12/05/24 02/05/25 02/08/25 History polyethylene glycol 3350 17 17 g PO DAILY 12/05/24 02/05/25 12/05/24 History gram/dose oral powder (ClearLax) potassium chloride 10 mEq 10 meq PO DAILY #30 tabs 12/05/24 02/05/25 02/04/25 Rx tablet,extended release (Klor-Con) tramadol 50 mg tablet 100 mg PO TID PRN Pain 12/05/24 02/08/25 02/08/25 History tirzepatide 15 mg/0.5 mL See Rx Instructions .Route 12/10/24 02/05/25 02/02/25 Rx subcutaneous pen injector .COMPLEX #2 mL (Mounjaro) doxycycline hyclate 100 mg capsule 100 mg PO BID 01/21/25 02/05/25 02/04/25 History metronidazole 500 mg tablet 500 mg PO BID 01/21/25 02/05/25 02/04/25 History Crutches #1 ea 02/05/25 Unknown Rx Allergies Allergy/AdvReac Type Severity Reaction Status Date / Time Alpha-Gal Allergy Severe ALGY-Anaphy Verified 02/04/25 13:07 (Uhqimfefg-Aazha-6,3-Gala laxis [facility] Anesthesia Medical History (Updated 01/22/25 @ 05:21 by Jens Guillermo DPM) 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 Immunization counseling High risk medication use Polyarthralgia Positive DANILO (antinuclear antibody) 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 Diabetes Thyroid disease Joint pain Hypertension Neuropathy Carpal tunnel syndrome on both sides Surgical History History of hysterectomy History of delivery Family History Other Cancer Diabetes Hypertension Denies family history of Rheumatoid arthritis Lupus CAD (coronary artery disease) Hyperlipidemia Chronic kidney disease (CKD) Family history of premature coronary artery disease Lung disease Stroke Social History Smoking and tobacco/nicotine status: never used tobacco/nicotine Alcohol intake: never Substance/Drug Use: never Data Anesthesia Cardiac Studies: Sestamibi Stress Test (Cardiology) 10/13/24
--- NOTE | 2025-02-08 09:07 | SUR.PREOP ---
surgery cancelled due to patient stopping plavix 02/[address] Guillermo wanting her to stay on it.
== END 2025-02-08 09:10 | disposition home or self-care (01) ==
LOC: OR 07:10
PROVIDERS: PCP Family Medicine; Visit Provider Podiatrist Foot & Ankle Surgery
PROC: (CPT 28810; 2025-02-08 08:35)
DX: Z53.8 Procedure and treatment not carried out for other reasons (principal)
CPT/HCPCS: 36416; 82962; J1100; J2250; J2405; J3010

== ENCOUNTER 2025-02-15 05:58 | Day surgery (SDC) | payer OTHER, SELFPAY ==
--- NOTE | 2025-02-14 10:30 | ANES.PREANE2 ---
Pre-Anesthetic Assessment Height/Weight: Height 5 ft 2 in Preop Diagnosis: Osteomyelitis Operation Date: 02/15/25 07:00 Proposed Procedures p Incision of Bone Cortex Fourth Metatarsal RIGHT Foot(Right) - Jens Guillermo DPM s Partial Fifth Ray Resection RIGHT Foot(Right) - Jens Guillermo DPM Was Beta Yair taken within 24 hours: N/A Was Clonidine taken within 24 hours: N/A Social No alcohol and No tobacco Exam alert, oriented x 3, clear to auscultation bilaterally and regular rate & rhythm Airway Submandibular: within normal limits Cervical ROM: within normal limits Mallampati: Class III Dentition: false Comments: Comments: Missing multiple lower teeth, denies any loose Anesthetic Plan ASA status: 3 Anesthesia: MAC Other: No prior issues with anesthesia, patient well-known to our service. Always done well with prior anesthetics NPO since yesterday evening Alpha gal History of hypothyroidism on Synthroid Psoriatic arthritis Type 2 diabetes, last A1c 5.1. Mounjaro taken 7 days ago GERD, controlled with Pepcid Labs reviewed from [facility] Medications/Allergies Home Medications ?Medication ?Instructions ?Recorded ?Confirmed ?Last Taken ?Type aspirin 81 mg tablet,delayed 81 mg PO QAM 04/23/22 02/12/25 02/15/25 04:30 History release (Adult Low Dose Aspirin) gabapentin 600 mg tablet 600 mg PO TID 04/23/22 02/12/25 02/15/25 04:30 History cetirizine 10 mg tablet (Zyrtec) 10 mg PO DAILY PRN allergies 05/03/22 02/12/25 02/15/25 04:30 History famotidine 20 mg tablet (Pepcid) 20 mg PO BID 05/03/22 02/12/25 02/04/25 History rosuvastatin 40 mg tablet (Crestor) 40 mg PO QPM 05/03/22 02/12/25 02/11/25 History hydroxychloroquine 200 mg tablet 200 mg PO BID #180 tabs 10/06/24 02/12/25 02/12/25 Rx Held on 10/14/24. Instructions: Resume on 11/16/24. hold until yousee epinephrine 0.3 mg/0.3 mL 0.3 mg IM PRN PRN Anaphylaxis 10/08/24 02/12/25 Unknown History injection, auto-injector clopidogrel 75 mg tablet 75 mg PO DAILY 12/05/24 02/12/25 02/15/25 04:30 History furosemide 40 mg tablet (Lasix) 40 mg PO QAM #30 tabs 12/05/24 02/12/25 02/15/25 04:30 Rx levothyroxine 112 mcg tablet 112 mcg PO QAM 12/05/24 02/12/25 02/15/25 04:30 History polyethylene glycol 3350 17 17 g PO DAILY 12/05/24 02/12/25 02/12/25 History gram/dose oral powder (ClearLax) potassium chloride 10 mEq 10 meq PO DAILY #30 tabs 12/05/24 02/12/25 02/15/25 04:30 Rx tablet,extended release (Klor-Con) tramadol 50 mg tablet 100 mg PO TID PRN Pain 12/05/24 02/12/25 02/15/25 04:30 History doxycycline hyclate 100 mg capsule 100 mg PO BID 01/21/25 02/12/25 02/15/25 04:30 History metronidazole 500 mg tablet 500 mg PO BID 01/21/25 02/12/25 02/15/25 04:30 History Crutches #1 ea 02/05/25 Unknown Rx prednisone 10 mg tablet 10 - 20 mg PO DAILY PRN joint pain 02/12/25 02/12/25 Unknown History tirzepatide 15 mg/0.5 mL 15 mg SUBCUT Q7D 02/12/25 02/12/25 02/09/25 History subcutaneous pen injector (Mounjaro) Allergies Allergy/AdvReac Type Severity Reaction Status Date / Time Alpha-Gal Allergy Severe ALGY-Anaphy Verified 02/12/25 13:50 (Pgrbyfvxu-Zpwww-0,3-Gala laxis [facility] Anesthesia Medical History (Updated 01/22/25 @ 05:21 by Jens Guillermo DPM) 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 Immunization counseling High risk medication use Polyarthralgia Positive DANILO (antinuclear antibody) 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 Diabetes Thyroid disease Joint pain Hypertension Neuropathy Carpal tunnel syndrome on both sides Surgical History History of hysterectomy History of delivery Family History Other Cancer Diabetes Hypertension Denies family history of Rheumatoid arthritis Lupus CAD (coronary artery disease) Hyperlipidemia Chronic kidney disease (CKD) Family history of premature coronary artery disease Lung disease Stroke Social History Smoking and tobacco/nicotine status: never used tobacco/nicotine Alcohol intake: never Substance/Drug Use: never Data Anesthesia Cardiac Studies: Sestamibi Stress Test (Cardiology) 10/13/24
[2025-02-15] VITALS (7 sets, daily range): BP systolic 106–151; BP diastolic 62–92; PULSE 62–73; RESP 16–18; TEMP 36.2–36.9; O2SAT 94–100; BMI 26.5
--- NOTE | 2025-02-15 | XR_ITS ---
WS: [id number] Right foot, C-arm fluoroscopy views, 02/15/2025 Clinical Data: Incision bone cortex right fourth metatarsal Comparison: Right foot, 01/21/2025 Findings: Dr. Guillermo biopsied the right fourth and fifth metatarsals. XR/XR foot RT 2V [id number] Impression: Biopsy of the right fourth and fifth metatarsals.
[2025-02-15] MEDS: acetaminophen 1,000 MG/100 ML PIGGYBACK 400 MG IV (06:32)
--- NOTE | 2025-02-15 06:49 | W.PM.OPSUD ---
Surgery/Procedure H&P Update DATE OF PROCEDURE: February 15, 2025 DATE H&P PERFORMED: 01/21/25 H&P UPDATE INFORMATION: I have reviewed H&P completed within last 30 days, I have examined patient prior to procedure, No changes to prior documentation, H&P is in [facility] EMR on date indicated and Risks and benefits of the procedure reviewed PREOP DIAGNOSIS: Osteomyelitis PLANNED PROCEDURE: Operation Date: 02/15/25 07:00 Proposed Procedures p Incision of Bone Cortex Fourth Metatarsal RIGHT Foot(Right) - Jens Guillermo DPM s Partial Fifth Ray Resection RIGHT Foot(Right) - Jens Guillermo DPM
[2025-02-15] MEDS: ceFAZolin 2,000 mg SDV 2000 MG IVP (07:02)
[2025-02-15] MEDS: BUPivacaine 0.5% INJ 30 mL INJECTION (07:10)
--- NOTE | 2025-02-15 07:58 | P.OP_ITS ---
Operative Report Date of procedure: February 15, 2025 Surgeon: Jens Guillermo DPM Procedure: Date of procedure: 02/15/2025 Pre-op diagnosis: Osteomyelitis right foot Post-op diagnosis: Osteomyelitis right 4th and 5th metatarsal Post-op findings: Osteomyelitis right foot 4th and 5th metatarsal Procedure done: 1. Incision bone cortex right fourth metatarsal CPT 74861 2. Partial fifth ray resection right foot CPT 06060 Implants: none Specimens removed: Right foot fourth metatarsal, right foot fifth digit and fifth metatarsal Surgeon: Dr. Jens Guillermo DPM Marketing Research Analyst: Sarah Armando Estimated blood loss: 10 cc Tourniquet time: No tourniquet used Complications: None Patient is a 54-year-old female that has a history of right foot 5th and 4th metatarsal osteomyelitis. The patient has had the aforementioned chief complaint for some time. Conservative treatment measures have been attempted and the patient has opted for surgical intervention at this time. A lengthy discussion regarding the procedure, including risks and complications has been had with the patient and is noted in the recent clinic note. Written and verbal consent have been obtained. All patient questions have been answered to the patient?s satisfaction. No written or verbal guarantees have been given or implied. The patient has been NPO since midnight. The history has been reviewed and the history and physical is current. The signed consent was confirmed and placed in the patient chart. Patient imaging has been reviewed and is consistent with the diagnosis. Under mild sedation, the patient was brought into the operating room and placed on the table in the supine position. IV antibiotics were given by the anesthesia team as preoperative surgical prophylaxis. MAC sedation was then performed by the anesthesiateam. A local field block was then performed using 0.5% Marcaine plain. The operative extremity was then prepped and draped in usual fashion. The following procedures then performed. Attention was directed to the right foot where a racquet style incision was made around the fifth digit. Dissection was carried down to the level of fifth metatarsal phalangeal joint. The fifth digit was disarticulated and passed from the operative field. The fifth metatarsal was visualized and was noted to have erosive changes to the mid diaphysis. Dissection was carried out to the mid diaphysis of the fifth metatarsal where an osteotomy was made. Distal portion of fifth metatarsal was dissected free from the operative field and sent as specimen as fifth metatarsal. Remaining bone appeared healthy and viable. Dissection was then carried down to fourth metatarsal. Cortex of fourth metatarsal was incised. Dissection was carried out to expose the distal portion of the fourth metatarsal which had erosive changes consistent with os teomyelitis. Devitalized bone was removed from the distal portion of the fourth metatarsal and passed in the operative field to be sent as fourth metatarsal specimen. Remaining bone appeared healthy and viable. Site was then irrigated with copious amounts of sterile saline. Hemostasis was achieved via electrocautery. Attention was then directed to closure. Deep tissue was closed with 3-0 Vicryl followed by skin closure with 3-0 Prolene. Incision site was dressed with Xeroform, 4 x 4 gauze, Kerlix, Miky bandage. The patient tolerated the procedure and anesthesia well and without complica tion. The patient was transported from the operating room to the recovery room with vital signs stable and vascular status intact to all digits of the right foot. The patient was given both written and verbal instructions to remain minimal weightbearing in postop shoe to the operative extremity, to keep dressings/splint clean, dry and intact and to take pain medication as directed. The patient will follow-up in the outpatient setting at their scheduled appointment. The patient was discharged with my personal number and was instructed to call if any questions or issues should arise. They were discharged home once anesthesia criteria was met.
--- NOTE | 2025-02-15 09:10 | ANE.PACU2 ---
Inpatient post-anesthesia follow up: Airway intact: Yes Vital signs: Temperature 97.2 F Pulse Rate 64 Respiratory Rate 18 Blood Pressure 132/76 Pulse Oximetry 100 Oxygen Delivery Me thod Room Air Oxygen Flow Rate 8 Fraction of Inspir ed Oxygen Hydration adequate: Yes Nausea and vomiting: No Pain level: 1 Mental status: Baseline
--- NOTE | 2025-02-15 11:29 | PC.NURSE ---
Pt returned to department c/o post op bleeding. dr. dewey notified and he changed dressing to right foot. pt left department with no complaints. instructed to contact dr. dewey for any problems.
== END 2025-02-15 09:09 | disposition home or self-care (01) ==
PROVIDERS: PCP Family Medicine; Visit Provider Podiatrist Foot & Ankle Surgery
PROC: (CPT 28005; principal; 2025-02-15 07:00)
PROC: (CPT 28810; 2025-02-15 07:00)
DX: M86.8X7 Other osteomyelitis, ankle and foot (principal); E03.9 Hypothyroidism, unspecified; Z91.014 Allergy to mammalian meats; L40.50 Arthropathic psoriasis, unspecified; K21.9 Gastro-esophageal reflux disease without esophagitis; Z79.82 Long term (current) use of aspirin; Z79.02 Long term (current) use of antithrombotics/antiplatelets; E11.40 Type 2 diabetes mellitus with diabetic neuropathy, unspecified; L40.0 Psoriasis vulgaris
CPT/HCPCS: 28005; 28810; 36416; 73620; 76000; 82962; 88305; 88307; 88311; J0131; J0690; J1885; J2250; J2405; J3010; J3490; J7030; J9999